=== PATIENT | female | born 1975 | race Caucasian/White ===

== ENCOUNTER 2016-06-22 18:28 | Emergency (ER) | payer MEDICARE ==
[2016-02-22 08:09] VITALS: BMI 46.1
[~2016-06-22 18:28] MED LIST: GLUCOPHAGE500 MG PO; HUMALOG 30100 UNITS/ SC; JANUVIA100 MG PO; KEFLEX500 MG PO; LEVEMIR100 U/M1 SC; NEURONTIN 300300 MG PO; NEURONTIN600 MG PO; PLAVIX75 MG PO; PROZAC40 MG PO
== END 2016-06-22 18:50 | disposition left against medical advice (07) ==
LOC: D.ER 18:28
DX: M79.604 Pain in right leg (principal); M54.9 Dorsalgia, unspecified; E11.9 Type 2 diabetes mellitus without complications; Z79.4 Long term (current) use of insulin

== ENCOUNTER 2016-06-23 20:31 | Emergency (ER) | payer MEDICARE ==
[2016-02-22 08:09] VITALS: BMI 46.1
== END 2016-06-24 01:10 | disposition home or self-care (01) ==
LOC: D.ER 20:31
DX: S16.1XXA Strain of muscle, fascia and tendon at neck level, initial encounter (principal); V43.52XA Car driver injured in collision with other type car in traffic accident, initial encounter; Y93.89 Activity, other specified; Y92.410 Unspecified street and highway as the place of occurrence of the external cause; F17.200 Nicotine dependence, unspecified, uncomplicated; E11.9 Type 2 diabetes mellitus without complications; Z79.4 Long term (current) use of insulin

== ENCOUNTER 2016-07-04 18:34 | Emergency (ER) | payer MEDICARE ==
[2016-02-22 08:09] VITALS: BMI 46.1
[2016-07-04 21:08] LABS: BASOPHILS 0.1 % (0.0-2.0); EOSINOPHILS 0.6 % (0-7); HEMATOCRIT 37.6 % (36.0-48.0); HEMOGLOBIN 12.1 g/dL (12-16); IMMATURE GRANULOCYTES 0.6 % (0-5); LYMPHOCYTES 10.9 % (15-50); MCH 27.1 pg (26.0-34.0); MCHC 32.2 g/dL (31.0-37.0); MCV 84.3 fL (80.0-100.0); MEAN PLATELET VOLUME 10.1 fL (7.4-10.4); MONOCYTES 8.8 % (2-11); RBC 4.46 10x6/uL (4.00-5.40); RDW 13.6 % (11.5-14.5); WBC 14.2 10x3/uL (4.8-10.8)
[2016-07-04 21:10] LABS: CALC OSMOLALITY 282 mosm/kg (275-300); CALCIUM 8.7 mg/dL (8.5-10.1); CARBON DIOXIDE 22.8 mmol/L (21.0-32.0); CHLORIDE - SERUM 99 mmol/L (98-107); CREATININE - SERUM 0.6 mg/dL (0.6-1.3); GLUCOSE 262 mg/dL (74-106); PLATELET COUNT 356 10x3/uL (130-400); POTASSIUM - SERUM 3.8 mmol/L (3.5-5.1); SODIUM 138 mmol/L (136-145); UREA NITROGEN 6 mg/dL (7-18); eGFR NON AFRICAN AMERICAN > 90 mL/min (90-120)
[2016-07-04 21:19] LABS: APTT 33.4 SECONDS (22.8-39.4); INR 1.35 (0.85-1.17); PROTIME 16.5 SECONDS (11.6-15.0)
== END 2016-07-04 22:07 | disposition home or self-care (01) ==
LOC: D.ER 18:34
PROVIDERS: Nurse Practitioner Acute Care
DX: L03.116 Cellulitis of left lower limb (principal); M79.605 Pain in left leg; E11.9 Type 2 diabetes mellitus without complications; Z79.4 Long term (current) use of insulin

== ENCOUNTER 2016-08-25 23:05 | Emergency (ER) | payer MEDICARE ==
[2016-02-22 08:09] VITALS: BMI 46.1
== END 2016-08-26 03:25 | disposition left against medical advice (07) ==
LOC: D.ER 23:05
DX: M79.602 Pain in left arm (principal); E11.9 Type 2 diabetes mellitus without complications; Z79.4 Long term (current) use of insulin

== ENCOUNTER 2016-10-04 22:03 | Emergency (ER) | payer MEDICARE | END 2016-10-05 00:53 | disposition home or self-care (01) | LOC: D.ER 22:03 | DX: M25.512 Pain in left shoulder (principal); M75.92 Shoulder lesion, unspecified, left shoulder; E11.9 Type 2 diabetes mellitus without complications; Z79.4 Long term (current) use of insulin ==

== ENCOUNTER 2016-10-17 22:01 | Emergency (ER) | payer MEDICARE ==
[2016-02-22 08:09] VITALS: BMI 46.1
== END 2016-10-17 22:18 | disposition left against medical advice (07) ==
LOC: D.ER 22:01
DX: Z02.9 Encounter for administrative examinations, unspecified (principal)

== ENCOUNTER 2016-12-05 18:45 | Emergency (ER) | payer MEDICARE ==
[2016-02-22 08:09] VITALS: BMI 46.1
== END 2016-12-05 20:44 | disposition home or self-care (01) ==
LOC: D.ER 18:45
DX: M25.512 Pain in left shoulder (principal); E11.9 Type 2 diabetes mellitus without complications; Z79.4 Long term (current) use of insulin

== ENCOUNTER 2016-12-21 18:49 | Emergency (ER) | payer MEDICARE ==
[2016-02-22 08:09] VITALS: BMI 46.1
== END 2016-12-21 21:26 | disposition home or self-care (01) ==
LOC: D.ER 18:49
DX: M25.512 Pain in left shoulder (principal); M25.412 Effusion, left shoulder; Z76.0 Encounter for issue of repeat prescription; E11.9 Type 2 diabetes mellitus without complications; Z79.4 Long term (current) use of insulin; F17.200 Nicotine dependence, unspecified, uncomplicated

== ENCOUNTER 2017-01-16 21:08 | Emergency (ER) | payer MEDICARE ==
[2016-02-22 08:09] VITALS: BMI 46.1
== END 2017-01-16 22:40 | disposition home or self-care (01) ==
LOC: D.ER 21:08
DX: M25.512 Pain in left shoulder (principal); E11.9 Type 2 diabetes mellitus without complications; F17.200 Nicotine dependence, unspecified, uncomplicated; Z79.4 Long term (current) use of insulin

== ENCOUNTER 2017-01-24 19:49 | Emergency (ER) | payer MEDICARE ==
[2016-02-22 08:09] VITALS: BMI 46.1
== END 2017-01-24 20:40 | disposition home or self-care (01) ==
LOC: D.ER 19:49
DX: S93.402A Sprain of unspecified ligament of left ankle, initial encounter (principal); X58.XXXA Exposure to other specified factors, initial encounter; Y93.89 Activity, other specified; Y92.89 Other specified places as the place of occurrence of the external cause; E11.9 Type 2 diabetes mellitus without complications; Z79.4 Long term (current) use of insulin; R53.1 Weakness

== ENCOUNTER → 2017-01-25 12:58 | Outpatient (CLI) | payer MEDICARE ==
[2016-02-22 08:09] VITALS: BMI 46.1
== END | disposition home or self-care (01) ==
LOC: D.MRI 01-21 15:30
DX: M75.42 Impingement syndrome of left shoulder (principal)

== ENCOUNTER 2017-01-26 23:56 | Emergency (ER) | payer MEDICARE ==
[2016-02-22 08:09] VITALS: BMI 46.1
== END 2017-01-27 00:44 | disposition home or self-care (01) ==
LOC: D.ER 23:56
DX: M25.512 Pain in left shoulder (principal); E11.9 Type 2 diabetes mellitus without complications; Z79.4 Long term (current) use of insulin; F17.200 Nicotine dependence, unspecified, uncomplicated

== ENCOUNTER 2017-02-04 21:24 | Emergency (ER) | payer MEDICARE ==
[2016-02-22 08:09] VITALS: BMI 46.1
== END 2017-02-04 22:50 | disposition home or self-care (01) ==
LOC: D.ER 21:24
DX: S29.012A Strain of muscle and tendon of back wall of thorax, initial encounter (principal); V49.9XXA Car occupant (driver) (passenger) injured in unspecified traffic accident, initial encounter; Y93.89 Activity, other specified; Y92.410 Unspecified street and highway as the place of occurrence of the external cause; F17.200 Nicotine dependence, unspecified, uncomplicated; E11.9 Type 2 diabetes mellitus without complications; Z79.4 Long term (current) use of insulin

== ENCOUNTER 2017-02-16 22:31 | Emergency (ER) | payer MEDICARE ==
[2016-02-22 08:09] VITALS: BMI 46.1
== END 2017-02-16 23:42 | disposition home or self-care (01) ==
LOC: D.ER 22:31
DX: S40.012A Contusion of left shoulder, initial encounter (principal); W19.XXXA Unspecified fall, initial encounter; Y93.01 Activity, walking, marching and hiking; Y92.018 Other place in single-family (private) house as the place of occurrence of the external cause; F17.200 Nicotine dependence, unspecified, uncomplicated

== ENCOUNTER 2017-04-29 20:16 | Emergency (ER) | payer MEDICARE ==
[2016-02-22 08:09] VITALS: BMI 46.1
== END 2017-04-29 21:26 | disposition home or self-care (01) ==
LOC: D.ER 20:16
DX: M54.5 Low back pain (principal)

== ENCOUNTER 2018-02-26 23:12 | Emergency (ER) | payer MEDICARE ==
[~2018-02-26] VITALS: Ht 160 cm; Wt 118.2 kg
[2018-02-26 23:15] VITALS: Ht 160 cm; Wt 118.2 kg
[2018-02-27] MEDS ORDERED: ANTIVERT12.5 MG PO (02:27)
[2018-02-27 02:39] VITALS: BP 136/75
== END 2018-02-27 02:39 | disposition home or self-care (01) ==
LOC: D.ER 23:12
DX: H81.10 Benign paroxysmal vertigo, unspecified ear (principal); R51 Headache; E11.9 Type 2 diabetes mellitus without complications; F17.200 Nicotine dependence, unspecified, uncomplicated

== ENCOUNTER 2018-03-18 19:18 | Emergency (ER) | payer MEDICARE ==
[~2018-03-18] VITALS: Ht 160 cm; Wt 116.8 kg
[~2018-03-18 19:18] MED LIST changes: +ANTIVERT12.5 MG PO
[2018-03-18 19:29] VITALS: BP 159/86; Ht 160 cm; Wt 116.8 kg
== END 2018-03-18 21:13 | disposition left against medical advice (07) ==
LOC: D.ER 19:18
DX: M79.604 Pain in right leg (principal)

== ENCOUNTER 2018-05-24 13:35 | Emergency (ER) | payer MEDICARE ==
[~2018-05-24] VITALS: Ht 160 cm; Wt 115.5 kg
[2018-05-24 13:43] VITALS: Ht 160 cm; Wt 115.5 kg
[2018-05-24 14:58] LABS: BASOPHILS 0.2 % (0-2); HEMATOCRIT 43.5 % (36.0-48.0); HEMOGLOBIN 14.8 g/dL (12-16); IMMATURE GRANULOCYTES 0.3 % (0-5); LYMPHOCYTES 20.2 % (15-50); MCH 28.6 pg (26.0-34.0); MCV 84.1 fL (80.0-100.0); MEAN PLATELET VOLUME 10.3 fL (7.4-10.4); MONOCYTES 6.2 % (2-11); NEUTROPHILS 72.1 % (40-80); RBC 5.17 10x6/uL (4.00-5.40); WBC 11.4 10x3/uL (4.8-10.8)
[2018-05-24 15:10] LABS: PLATELET COUNT 284 10x3/uL (130-400)
[2018-05-24 15:14] LABS: ALKALINE PHOSPHATASE 88 U/L (46-116); ALT (SGPT) 8 U/L (10-68); BILIRUBIN - TOTAL 0.24 mg/dL (0.2-1.3); CALC OSMOLALITY 289 mosm/kg (275-300); CALCIUM 9.3 mg/dL (8.5-10.1); CHLORIDE - SERUM 97 mmol/L (98-107); CREATININE - SERUM 0.8 mg/dL (0.6-1.3); POTASSIUM - SERUM 4.5 mmol/L (3.5-5.1); SODIUM 134 mmol/L (136-145); UREA NITROGEN 15 mg/dL (7-18); eGFR NON AFRICAN AMERICAN 84 mL/min (90-120)
[2018-05-24 15:16] LABS: GLUCOSE 469 mg/dL (74-106)
[2018-05-24] MEDS ORDERED: NAPROSYN500 MG PO (17:03)
[2018-05-24 18:21] VITALS: BP 153/76
== END 2018-05-24 18:21 | disposition home or self-care (01) ==
LOC: D.ER 13:35
PROVIDERS: Family Medicine
DX: M79.662 Pain in left lower leg (principal); E11.65 Type 2 diabetes mellitus with hyperglycemia; Z91.19 Patient's noncompliance with other medical treatment and regimen; E66.01 Morbid (severe) obesity due to excess calories; F17.200 Nicotine dependence, unspecified, uncomplicated

== ENCOUNTER 2018-06-23 18:01 | Emergency (ER) | payer MEDICARE ==
[~2018-06-23] VITALS: Ht 160 cm; Wt 113.6 kg
[~2018-06-23 18:01] MED LIST changes: +NAPROSYN500 MG PO
[2018-06-23 18:18] VITALS: Ht 160 cm; Wt 113.6 kg
[2018-06-23] MEDS ORDERED: LEVOFLOXACIN500 MG PO (20:16)
[2018-06-23] MEDS ORDERED: VENTOLIN HFA18 GM INH (20:16)
[2018-06-23 20:22] VITALS: BP 155/78
== END 2018-06-23 20:22 | disposition home or self-care (01) ==
LOC: D.ER 18:01
DX: R05 Cough (principal); J18.9 Pneumonia, unspecified organism; E11.9 Type 2 diabetes mellitus without complications

== ENCOUNTER 2018-07-16 15:51 | Inpatient (IN) | payer MEDICARE ==
[~2018-07-16] VITALS: Ht 160 cm; Wt 117.9 kg
[~2018-07-16 15:51] MED LIST changes: +LEVOFLOXACIN500 MG PO; +VENTOLIN HFA18 GM INH
[2018-07-16] MEDS ORDERED: LIPITOR40 MG PO (16:29)
[2018-07-16] MEDS ORDERED: ASPIRIN EC81 M1 PO (16:30)
[2018-07-16] MEDS ORDERED: ELIQUIS5 MG PO (16:31)
[2018-07-16] MEDS ORDERED: NYSTATIN1 PWD TOPICAL (16:31)
--- NOTE | 2018-07-16 16:40 | NUR ---
PT RECIEVED FROM HOME. FOOT SWOLLEN AND RED. SORE TO BACK OF HEEL. NO SIGNS OF DISTRESS. DENIES ANY OTHER NEED AT THIS TIME. CALL LIGHT IN REACH. BED LOW POSITION. NO FAMILY AT BEDSIDE AT THIS TIME.
[2018-07-16 17:36] LABS: BASOPHILS 0.3 % (0-2); EOSINOPHILS 1.6 % (0-7); HEMATOCRIT 36.4 % (36.0-48.0); HEMOGLOBIN 11.9 g/dL (12-16); IMMATURE GRANULOCYTES 0.4 % (0-5); LYMPHOCYTES 17.1 % (15-50); MCH 28.2 pg (26.0-34.0); MCHC 32.7 g/dL (31.0-37.0); MCV 86.3 fL (80.0-100.0); MONOCYTES 6.1 % (2-11); NEUTROPHILS 74.5 % (40-80); PLATELET COUNT 332 10x3/uL (130-400); RBC 4.22 10x6/uL (4.00-5.40); RDW 14.3 % (11.5-14.5); WBC 9.4 10x3/uL (4.8-10.8)
[2018-07-16 17:46] LABS: CALC OSMOLALITY 283 mosm/kg (275-300); CALCIUM 8.5 mg/dL (8.5-10.1); CARBON DIOXIDE 24.3 mmol/L (21.0-32.0); CHLORIDE - SERUM 100 mmol/L (98-107); CREATININE - SERUM 0.6 mg/dL (0.6-1.3); POTASSIUM - SERUM 4.1 mmol/L (3.5-5.1); SODIUM 136 mmol/L (136-145); UREA NITROGEN 13 mg/dL (7-18); eGFR NON AFRICAN AMERICAN > 90 mL/min (90-120)
[2018-07-16 17:50] LABS: GLUCOSE 309 mg/dL (74-106)
[2018-07-16 18:44] VITALS: BP 144/75; BMI 46.1
--- NOTE | 2018-07-16 18:51 | NUR ---
ATTEMPTED TO DO MRI LEFT FOOT W/WO. PT UNABLE TO HOLD FOOT STILL AND IN TOO MUCH PAIN TO CONTINUE. PT WANTS TO TRY AGAIN TOMORROW. INFORMED PTS NURSE UPON RETURN TO THE FLOOR.
[2018-07-16 21:20] VITALS: BP 128/65
--- NOTE | 2018-07-17 02:50 | NUR ---
REC'D. HERE.DRSG. [place].OBTAINED CULTURE FROM WOUND LEFT FOOT SENT TO LAB.LGE AMT. REDNESS AND SWELLING UP ON PILLOW.C/O SOME NUMBNESSWIGGLES TOES AND DORSIFLEXES WELL UP ON PILLOW. MENDY.WELL..ENTIRE RM. FILLED WITH FOUL SMELLING ODOR WILL CONTINUE TO MONITOR FOR ANY CHGES AND FOLLOW CURRENT PLAN OF CARE
--- NOTE | 2018-07-17 03:38 | NUR ---
RESTING IN BED NO APPARENT DISTRESS CALL LIGHT IN REACH
[2018-07-17 05:45] VITALS: BP 154/70
--- NOTE | 2018-07-17 08:12 | NUR ---
PATIENT IN BED WITH EYES CLOSED RESTING QUIETLY. NO COMPLAINTS OR SIGNS OF DISTRESS. IV INTACT. CALL LIGHT WITHIN REACH.
--- NOTE | 2018-07-17 09:18 | NUR ---
PT REQUESTED PAIN MEDICATION STATED HER PAIN IS UNBEARABLE, PT STATED PAIN IS OVEDR A 03/19, ADVISED PT THAT HER PAIN MEDICATTION IS SCHEDULEDN Q6 AND I WILL TALK TO DR IN REGARDS TO PAIN MEDICATION. [facility] NO OTHER NEEDS VOICED
--- NOTE | 2018-07-17 10:29 | NUR ---
STARTED PT DISTRIBUTION CENTER ASSOCIATE, ADMINISTERED MEDS PER MAR, NO OTHER NEEDS PER PT. CONTINUE WITH PLAN OF CARE
[2018-07-17 12:45] VITALS: BP 117/55
[2018-07-17 12:54] VITALS: BP 128/54
[2018-07-17 13:14] LABS: BASOPHILS 0.2 % (0-2); EOSINOPHILS 1.7 % (0-7); HEMATOCRIT 35.5 % (36.0-48.0); HEMOGLOBIN 11.5 g/dL (12-16); IMMATURE GRANULOCYTES 0.4 % (0-5); LYMPHOCYTES 20.3 % (15-50); MCHC 32.4 g/dL (31.0-37.0); MCV 86.6 fL (80.0-100.0); MEAN PLATELET VOLUME 9.7 fL (7.4-10.4); MONOCYTES 5.1 % (2-11); NEUTROPHILS 72.3 % (40-80); PLATELET COUNT 329 10x3/uL (130-400); RDW 14.1 % (11.5-14.5); WBC 8.4 10x3/uL (4.8-10.8)
[2018-07-17 13:38] VITALS: Ht 160 cm; Wt 117.9 kg
[2018-07-17 13:45] LABS: ALBUMIN 2.6 g/dL (3.4-5.0); ALKALINE PHOSPHATASE 76 U/L (46-116); ALT (SGPT) 18 U/L (10-68); BILIRUBIN - TOTAL 0.32 mg/dL (0.2-1.3); CALCIUM 8.5 mg/dL (8.5-10.1); CARBON DIOXIDE 22.9 mmol/L (21.0-32.0); CHLORIDE - SERUM 102 mmol/L (98-107); CREATININE - SERUM 0.7 mg/dL (0.6-1.3); POTASSIUM - SERUM 3.6 mmol/L (3.5-5.1); PROTEIN - SERUM 6.5 g/dL (6.4-8.2); SODIUM 138 mmol/L (136-145); eGFR NON AFRICAN AMERICAN > 90 mL/min (90-120)
[2018-07-17 13:47] LABS: CALC OSMOLALITY 276 mosm/kg (275-300); GLUCOSE 140 mg/dL (74-106); UREA NITROGEN 9 mg/dL (7-18)
[2018-07-17 16:57] VITALS: BP 135/71
[2018-07-17 20:25] VITALS: BP 143/71
--- NOTE | 2018-07-17 20:26 | NUR ---
PATENT ALERT AND ORENTED ABLE TO VOICE NEEDS AND WANTS TO STAFF NO NEEDS AT THIS TIME NO S/S OF DISTRESS
[2018-07-17 21:57] VITALS: BP 143/71
[2018-07-18 00:14] VITALS: BP 140/80
[2018-07-18 04:19] VITALS: BP 158/63
--- NOTE | 2018-07-18 07:54 | NUR ---
PT LAYING IN BED THIS AM, RESTING WITH EYES CLOSED. AWOKEN EASILY TO VERBAL STIMULI. IV INFUSING TO RIGHT HAND, MORPHINE BRAZING MACHINE OPERATOR AUTOMATIC NOTED. PT VOICES THAT PAIN IS CONTROLLED VIA BRAZING MACHINE OPERATOR AUTOMATIC PUMP. RESPIRATIONS EVEN AND UNLABORED, NO S/S OF DISTRESS NOTED. DRESSING TO LEFT HEEL NOTED, CDI. DENIES NEEDS AT THIS TIME. WILL CONTINUE TO MONITOR. BED LOW AND LOCKED, SR UP X2, CL IN EASY REACH.
[2018-07-18 08:45] VITALS: BP 145/74
--- NOTE | 2018-07-18 10:26 | NUR ---
MICRO SHOWS STREP B FOR CULTURE ON FOOT. PT PLACED IN CONTACT ISOLATION.
[2018-07-18] MEDS ORDERED: AUGMENTIN 875-11 TAB PO (11:28)
[2018-07-18] MEDS ORDERED: HYDROCODON-ACE1 EAC7 PO (11:31)
--- NOTE | 2018-07-18 11:40 | MORECARE ---
CASE MANAGEMENT DISCHARGE SUMMARY PATIENT: DEEPTHI HARDY UNIT: [id number] ADM DATE: 07/16/18 AGE: 42 : 77 SEX: F ROOM/BED: D.2239 AUTHOR: JENNIFER LARSEN PHYSICIAN: REFERRING PHYSICIAN: PATIENCE BHATIA DPM DATE OF SERVICE: 07/18/18 Discharge Plan Patient Name: DEEPTHI HARDY [facility] [facility] 1975 Planned Disposition: Home Anticipated Discharge Date: 07/18/18 Discharge Date: Expected LOS: 2 Initial Reviewer: [email or web address] Initial Review Date: 07/18/2018 Generated: 07/18/18 12:39 pm DCPIA - Discharge Planning Initial Assessment Updated by [email or web address]: Monica Cassidy on 07/18/18 11:36 am * Is the patient Alert and Oriented? Yes * How many steps to enter\exit or inside your home? 7/0 * PCP Dr. Pa Clark in [place] * [facility]acy [facility] * Preadmission Environment Home with Family * ADLs Independent * Equipment None * List name and contact numbers for known caregivers / representatives who currently or will assist patient after discharge: Kiah Hardy - [facility] - [phone] * Verbal permission to speak to the caregivers and representatives has been obtained from the patient. Yes * Community resources currently utilized None * Additional services required to return to the preadmission environment? No * Can the patient safely return to the preadmission environment? Yes * Has this patient been hospitalized within the prior 30 days at any hospital? Yes Patient Name: DEEPTHI HARDY Page 79097 at 1140 All edits/amendments must be made on the electronic document DICTATION DATE: 07/18/18 1139 FOLLOW UP SPECIALIST: ANTHONY 07/18/18 1139 RPT#: [id number] DC DATE: STATUS: ADM IN [facility] [address] [place] [address] END OF REPORT
--- NOTE | 2018-07-18 11:49 | MORECARE ---
CASE MANAGEMENT DISCHARGE SUMMARY PATIENT: DEEPTHI HARDY UNIT: [id number] ADM DATE: 07/16/18 AGE: 42 : 77 SEX: F ROOM/BED: D.2239 AUTHOR: SUZIE,DOC PHYSICIAN: REFERRING PHYSICIAN: PATIENCE BHATIA DPM DATE OF SERVICE: 07/18/18 Discharge Plan Patient Name: DEEPTHI HARDY Facility: [facility]:[place] : 1975 Planned Disposition: Home Anticipated Discharge Date: 07/18/18 Discharge Date: Expected LOS: 2 Initial Reviewer: [email or web address] Initial Review Date: 07/18/2018 Generated: 07/18/18 12:48 pm Comments DCP- Discharge Planning Updated by [email or web address]: Monica Cassidy on 07/18/18 10:[address] Patient Name: DEEPTHI HARDY Admission Status: Urgent Accout number: [id number] Admission Date: 07-16-2018 : 1975 Admission Diagnosis: Attending: PATIENCE BHATIA Current LOS: 2 Anticipated DC Date: 07-18-2018 Planned Disposition: Home Primary Insurance: MEDICARE A & B Discharge Planning Comments: CM met with patient to discuss discharge planning, she is alone in the room. She states she lives with her mom, step-dad, brother (he will take her home today after work), her 3 year old and her brothers 3 year old are in the home. She states she is completely independent with her care. States she has not been driving because of her heel, but her step father has been driving her where she needs to go. Declines need for DME or home health. No needs identified. CM will continue to follow and assist with discharge planning/needs. To discharge home today. Patent Leather Sorter: Monica Cassidy DCPIA - Discharge Planning Initial Assessment Updated by [email or web address]: Monica Cassidy on 07/18/18 11:36 am * Is the patient Alert and Oriented? Yes * How many steps to enter\exit or inside your home? 7/0 * PCP Dr. Pa Clark in [place] * [facility] * Preadmission Environment Home with Family * ADLs Independent * Equipment None * List name and contact numbers for known caregivers / representatives who currently or will assist patient after discharge: Kiah Hardy - [facility] - [phone] * Verbal permission to speak to the caregivers and representatives has been obtained from the patient. Yes * Community resources currently utilized None * Additional services required to return to the preadmission environment? No * Can the patient safely return to the preadmission environment? Yes * Has this patient been hospitalized within the prior 30 days at any hospital? Yes Last DP export: 07/18/18 10:39 am Patient Name: DEEPTHI HARDY Page 32858 at 1149 All edits/amendments must be made on the electronic document DICTATION DATE: 07/18/18 1148 WEIGHT COUNT OPERATOR: ANTHONY 07/18/18 1148 RPT#: [id number] DC DATE: STATUS: ADM IN [facility] [address] [place] [address] END OF REPORT
[2018-07-18 12:45] VITALS: BP 143/76
--- NOTE | 2018-07-18 13:25 | NUR ---
PT TO DISCHARGE LATER THIS PM AT ABOUT 1730 WHEN HER RIDE IS SUPPOSED TO BE HERE. DENIES NEEDS AT THIS TIME. CL IN EASY REACH.
--- NOTE | 2018-07-18 16:16 | NUR ---
PT DISCHARGE INFORMATION GONE OVER WITH PT AND FAMILY. ALLOWED TIME FOR QUESTIONS, QUESTIONS ANSWERED. PT EDUCATION PROVIDED UPON DISCHARGE. VERBALIZED UNDERSTANDING AND SIGNED. IV REMOVED FROM RIGHT HAND, TIP INTACT. DENIES FURTHER NEEDS. PT DISCHARGED AT 1616.
--- NOTE | 2018-07-22 07:54 | MORECARE ---
CASE MANAGEMENT DISCHARGE SUMMARY PATIENT: DEEPTHI HARDY UNIT: [id number] ADM DATE: 07/16/18 AGE: 42 : [birth year] SEX: F ROOM/BED: D.2239 AUTHOR: SUZIE,DOC PHYSICIAN: REFERRING PHYSICIAN: PATIENCE BHATIA DPM DATE OF SERVICE: 07/22/18 Discharge Plan Patient Name: DEEPTHI HARDY Facility: [facility]:[place] : 1975 Planned Disposition: Home Anticipated Discharge Date: 07/18/18 Discharge Date: 07/18/2018 Expected LOS: 2 Initial Reviewer: [email or web address] Initial Review Date: 07/18/2018 Generated: 07/22/18 8:54 am Comments DCP- Discharge Planning Updated by [email or web address]: Monica Cassidy on 07/18/18 10:[address] Patient Name: DEEPTHI HARDY Admission Status: Urgent Accout number: [id number] Admission Date: 07-16-2018 : 1975 Admission Diagnosis: Attending: PATIENCE BHATIA Current LOS: 2 Anticipated DC Date: 07-18-2018 Planned Disposition: Home Primary Insurance: MEDICARE A & B Discharge Planning Comments: CM met with patient to discuss discharge planning, she is alone in the room. She states she lives with her mom, step-dad, brother (he will take her home today after work), her 3 year old and her brothers 3 year old are in the home. She states she is completely independent with her care. States she has not been driving because of her heel, but her step father has been driving her where she needs to go. Declines need for DME or home health. No needs identified. CM will continue to follow and assist with discharge planning/needs. To discharge home today. Pattern Maker Programer: Monica Cassidy DCPIA - Discharge Planning Initial Assessment Updated by [email or web address]: Monica Cassidy on 07/18/18 11:36 am * Is the patient Alert and Oriented? Yes * How many steps to enter\exit or inside your home? 7/0 * PCP Dr. Pa Clark in [place] * [facility] * Preadmission Environment Home with Family * ADLs Independent * Equipment None * List name and contact numbers for known caregivers / representatives who currently or will assist patient after discharge: Kiah Hardy - [facility] - [phone] * Verbal permission to speak to the caregivers and representatives has been obtained from the patient. Yes * Community resources currently utilized None * Additional services required to return to the preadmission environment? No * Can the patient safely return to the preadmission environment? Yes * Has this patient been hospitalized within the prior 30 days at any hospital? Yes Last DP export: 07/18/18 10:48 am Patient Name: DEEPTHI HARDY Page 10922 at 0754 All edits/amendments must be made on the electronic document DICTATION DATE: 07/22/18752 TOY ELECTRIC TRAIN REPAIRER: ANTHONY 07/22/18752 RPT#: [id number] DC DATE:07/18/18 STATUS: DIS IN [facility] [address] [place] [address] END OF REPORT
== END 2018-07-18 16:16 | disposition home or self-care (01) | DRG 300 ==
LOC: D.MS 15:51
PROVIDERS: Family Medicine; ADMIT Podiatrist Foot & Ankle Surgery
DX: E11.52 Type 2 diabetes mellitus with diabetic peripheral angiopathy with gangrene (principal); I96 Gangrene, not elsewhere classified; L03.116 Cellulitis of left lower limb; Z68.42 Body mass index [BMI] 45.0-49.9, adult; B95.4 Other streptococcus as the cause of diseases classified elsewhere; E66.01 Morbid (severe) obesity due to excess calories; E11.65 Type 2 diabetes mellitus with hyperglycemia; F32.9 Major depressive disorder, single episode, unspecified; F41.9 Anxiety disorder, unspecified; Z87.891 Personal history of nicotine dependence

== ENCOUNTER → 2018-08-01 10:39 | Outpatient (CLI) | payer MEDICARE ==
[2018-07-17 13:38] VITALS: BMI 46.0
[~2018-08-01 10:39] MED LIST changes: +ASPIRIN EC81 M1 PO; +AUGMENTIN 875-11 TAB PO; +ELIQUIS5 MG PO; +HYDROCODON-ACE1 EAC7 PO; +LIPITOR40 MG PO; +NYSTATIN1 PWD TOPICAL
== END | disposition home or self-care (01) ==
LOC: D.US 07-31 15:00
DX: M79.604 Pain in right leg (principal); R22.41 Localized swelling, mass and lump, right lower limb

== ENCOUNTER 2018-10-06 18:25 | Emergency (ER) | payer MEDICARE ==
[~2018-10-06] VITALS: Ht 160 cm; Wt 110.5 kg
[2018-10-06 18:29] VITALS: Ht 160 cm; Wt 110.5 kg
[2018-10-06 20:23] LABS: BASOPHILS 0.2 % (0-2); EOSINOPHILS 0.8 % (0-7); HEMATOCRIT 42.5 % (36.0-48.0); HEMOGLOBIN 14.4 g/dL (12-16); IMMATURE GRANULOCYTES 0.3 % (0-5); LYMPHOCYTES 19.9 % (15-50); MCHC 33.9 g/dL (31.0-37.0); MCV 82.5 fL (80.0-100.0); MEAN PLATELET VOLUME 10.6 fL (7.4-10.4); MONOCYTES 6.8 % (2-11); RBC 5.15 10x6/uL (4.00-5.40); RDW 13.5 % (11.5-14.5); WBC 10.2 10x3/uL (4.8-10.8)
[2018-10-06 20:30] LABS: PLATELET COUNT 252 10x3/uL (130-400)
[2018-10-06] MEDS ORDERED: TYLENOL W/CODEI1 TAB PO (20:49)
[2018-10-06] MEDS ORDERED: VIBRAMYCIN 100100 MG PO (20:49)
[2018-10-06 20:51] LABS: ALBUMIN 2.8 g/dL (3.4-5.0); ALKALINE PHOSPHATASE 86 U/L (46-116); ALT (SGPT) 16 U/L (10-68); BILIRUBIN - TOTAL 0.31 mg/dL (0.2-1.3); CALC OSMOLALITY 286 mosm/kg (275-300); CALCIUM 8.8 mg/dL (8.5-10.1); CARBON DIOXIDE 23.8 mmol/L (21.0-32.0); CHLORIDE - SERUM 99 mmol/L (98-107); CREATININE - SERUM 0.8 mg/dL (0.6-1.3); POTASSIUM - SERUM 4.4 mmol/L (3.5-5.1); PROTEIN - SERUM 7.3 g/dL (6.4-8.2); SODIUM 134 mmol/L (136-145); UREA NITROGEN 15 mg/dL (7-18); eGFR NON AFRICAN AMERICAN 83 mL/min (90-120)
[2018-10-06] MEDS ORDERED: DIFLUCAN100 MG PO (20:53)
[2018-10-06 20:54] LABS: GLUCOSE 431 mg/dL (74-106)
[2018-10-06 22:04] VITALS: BP 125/74
== END 2018-10-06 21:55 | disposition home or self-care (01) ==
LOC: D.ER 18:25
PROVIDERS: Family Medicine
DX: L08.89 Other specified local infections of the skin and subcutaneous tissue (principal); E11.69 Type 2 diabetes mellitus with other specified complication

== ENCOUNTER → 2018-10-29 18:22 | Outpatient (CLI) | payer MEDICARE ==
[2018-10-06 18:29] VITALS: BMI 43.1
[~2018-10-29 18:22] MED LIST changes: +DIFLUCAN100 MG PO; +TYLENOL W/CODEI1 TAB PO; +VIBRAMYCIN 100100 MG PO
== END | disposition home or self-care (01) ==
LOC: D.LABREF 18:22
PROVIDERS: ATTEND Podiatrist Foot & Ankle Surgery
DX: L03.116 Cellulitis of left lower limb (principal)

== ENCOUNTER 2018-11-29 21:53 | Inpatient (IN) | payer MEDICARE ==
[~2018-11-29] VITALS: Ht 160 cm; Wt 117.7 kg
--- NOTE | ~2018-11-29 | HEMODYNAMI ---
PATIENT:DEEPTHI HARDY MEDICAL RECORD: [id number] : [birth year] LOCATION:[place] [address] ADMISSION DATE: 11/29/18 Generatedon:12/02/201815:04 Patient name: DEEPTHI HARDY Patient #: [id number] SSN: : 1975 Date of study: 12/02/2018 Page: Of Hemodynamic Procedure Report Patient Data Patient Demographics Procedure consent was obtained First Name: DEEPTHI Gender: Female Last Name: HAYLEY : 1975 Middle Initial: R Age: 43 year(s) Patient #: [id number] Race: Unknown Additional ID: [id number] Contact details Address: [address] [place] [address] State: [place] City: [place] Zip code: [address] Admission Admission Data Admission Date: 11/29/2018 Admission Time: 23:28 Room #: [facility] Procedure Procedure Types Cath Procedure Peripheral Cath Diagnostic Procedure Abd/Extremity Extremities Right Lower Ext Arterio Procedure Description Procedure Date Procedure Date: 12/02/2018 Procedure Start Time: 14:40 Procedure Staff Name Function Teddy Gore MD Performing Physician Nasra Goldberg RN Nurse SHERRELL ALBA RT Scrub Nikos Cazares RT Monitor Procedure Data Cath Procedure Fluoroscopy Diagnostic fluoroscopy Total fluoroscopy Time: 2.1 time: 2.1 min min Diagnostic fluoroscopy Total fluoroscopy dose: 105 dose: 105 mGy mGy Contrast Material Contrast Material Type Amount (ml) Isovue 300 35 Entry Location Entry Primary Successful Side Size Upsize Upsize Entry Closure Succes sful Closure Location (Fr) 1 (Fr) 2 (Fr) Remarks Device Remarks Femoral Right 5 Fr Exoseal artery Diagnostic catheters Device Type Used For End Catheter Placement DIAGNOSTIC IMT 5Fr Catheter ([id number]) Procedure Medications Medication Administration Route Dosage Heparin Flush Bag added to field 2 bags (1000units/500ml NS) Lidocaine 1% added to field 20 Versed I.V. 1 mg Fentanyl I.V. 50 mcg Versed I.V. 1 mg Fentanyl I.V. 50 mcg Hemodynamics Rest Heart Rate: 72 (bpm) Snapshots Pre Cath Intra NCS Post Cath Vital Signs Time Heart Resp SPO2 etCO2 NIBP (mmHg) Rhythm Pain Sedation Rate (ipm) (%) (mmHg) Status Level (bpm) 14:23:04 74 22 93 26.2 145/61(102) NSR 0 (11) 10(A) , No pain 14:27:18 74 36 100 30 141/79(107) NSR 0 (11) 10(A) , No pain 14:31:34 78 24 100 32.3 150/79(115) NSR 0 (11) 10(A) , No pain 14:35:52 76 60 100 32.3 148/84(120) NSR 0 (11) 10(A) , No pain 14:40:08 78 20 100 30.8 151/88(128) NSR 0 (11) 10(A) , No pain 14:44:26 81 50 100 31.5 155/81(117) NSR 0 (11) 8(A) , No pain 14:48:40 84 18 100 34.5 144/83(118) NSR 0 (11) 8(A) , No pain 14:52:54 85 36 99 35.3 155/86(125) NSR 0 (11) 8(A) , No pain 14:57:04 80 20 99 36 153/89(112) NSR 0 (11) 8(A) , No pain 15:01:20 82 14 100 34.5 167/92(130) NSR 0 (11) 8(A) , No pain Medications Time Medication Route Dose Verified Delivered Reason Notes Effec tiveness by by 14:22:57 Heparin Flush added 2 Teddy Espinal used for Bag to bags Bao Gore procedure (1000units/500ml field MD GUADALUPE NS) 14:23:14 Lidocaine 1% added 20ml Teddy Espinal used for to vial Bao Gore procedure field MD GUADALUPE 14:42:31 Versed I.V. 1 mg Teddy Hammonds for Bao Goldberg RN sedation 14:42:44 Fentanyl I.V. 50 Teddy Hammonds for mcg Bao Goldberg RN sedation 14:45:06 Versed I.V. 1 mg Teddy Hammonds for Bao Goldberg RN sedation 14:45:18 Fentanyl I.V. 50 Teddy Hammonds for [facility] Bao Goldberg RN sedation Procedure Log Time Note 14:14:26 Nikos Debora RT (R) (CV) sent for patient. Start room use. 14:14:32 Time tracking: Regular hours (M-F 7:00 - 5:00) 14:14:37 Plan of Care:Hemodynamics will remain stable., Cardiac rhythm will remain stable., Comfort level will be maintained., Respiratory function will remain adequate., Patient/ family verbilizes understanding of procedure., Procedure tolerated without complication., Recovers from procedure without complications.. 14:14:50 Patient received from [employer] to IR Alert and oriented. Tansferred to table in Prone position. 14:14:52 Correct patient and procedure confirmed by team. 14:14:55 Signed procedure consent form obtained from patient. 14:14:56 ECG and BP/O2 sat monitors applied to patient. 14:14:58 Full Disclosure recording started 14:14:59 - 14:15:03 H&P Date Dictated: 12/02/2018 Within 30 days and on chart.. 14:15:05 Pre-op teaching completed and patient verbalized understanding. 14:15:07 Pre-procedure instructions explained to patient. 14:15:09 Family in waiting room. 14:15:10 Patient NPO since Midnight. 14:15:15 Is the patient allergic to Iodine/contrast media? No. 14:15:17 Is patient on blood thinner?No 14:15:18 Patient diabetic? Yes. 14:15:20 If diabetic: On Metformin? No 14:15:21 ----Pre-sedation anethsthesia assessment.---- 14:15:22 ----Pre-sedation anethsthesia assessment.---- 14:15:28 Previous problem with sedation/anesthesia? No ? 14:15:29 Snore? Yes 14:15:32 Sleep apnea? No 14:15:34 Deviated septum? No 14:15:42 Opens mouth fully? Yes 14:15:44 Sticks out tongue? Yes 14:15:48 Airway obstruction? No ? 14:15:54 Dentures? No \ 14:15:58 Use device set IR Diagnostic 14:16:00 Sterile Angiographic Pack opened to sterile field. 14:16:01 Tegaderm 4 x 4 (1626W) opened to sterile field. 14:16:32 IV patent on arrival in left forearm with 0.9% NaCl at [facility]. 14:20:42 Pre procedure: right dorsailis pedis pulse None 14:20:45 Pre procedure: left dorsailis pedis pulse Doppler 14:20:50 Pre procedure: right posterior tibial pulse Doppler 14:20:53 Pre procedure: left posterior tibial pulse Doppler 14:20:58 Left groin area was prepped with chlora-prep and draped in sterile fashion 14:20:59 Sharps counted by scrub and verified by R.N. 14:21:00 Alarms reviewed by R. N. 14:21:22 Bag Decanter (2002S) opened to sterile field. 14:21:37 Vital chart was started 14:21:38 Baseline sample Acquired. 14:22:57 Heparin Flush Bag (1000units/500ml NS) 2 bags added to field was administered by Teddy Gore MD; used for procedure; 14:23:14 Lidocaine 1% 20ml vial added to field was administered by Teddy walters MD; used for procedure; 14:39:42 Physician arrived 14:39:48 --------ALL STOP TIME OUT------ 14:39:48 Final Timeout: patient, procedure, and site verified with staff and physician. All members of the team are in agreement. 14:39:50 Left groin site verified by team. 14:39:55 Maximum allowable Isovue 300 dose 300ml. Physician notified. (300ml for normal creatinines. For patients with creatinine of 1.7 or higher multiply weight(kg) x 5 divided by creatinine.) 14:39:59 Fire Safety Assessment: A--An alcohol-based skin anteseptic being used preoperatively., C--Open oxygen or nitrous oxide is being used. 14:40:04 Sedation plan: IV Moderate Sedation Medication:Versed, Fentanyl 14:40:17 Procedure started. 14:40:22 Local anesthetic to left femerol artery with Lidocaine 1% by Teddy Gore MD.INITIAL ACCESS ONLY 14:40:35 DOC .035 wire ([id number]) opened to sterile field. 14:40:35 SHEATH 5FR [place] (ZVT498) opened to sterile field. 14:40:36 Micropuncture VSI 4FR kit opened to sterile field. 14:40:38 A DIAGNOSTIC IMT 5Fr Catheter ([id number]) was advanced over the wire an d used for . 14:40:40 Access obtained with 4Fr micropunture. 14:40:50 A 5 Fr sheath was inserted into the Right Femoral artery 14:42:31 Versed 1 mg I.V. was administered by Nasra Goldberg RN; for sedation; 14:42:44 Fentanyl 50 mcg I.V. was administered by Nasra Goldberg RN; for sedation; 14:45:06 Versed 1 mg I.V. was administered by Nasra Goldberg RN; for sedation; 14:45:18 Fentanyl 50 mcg I.V. was administered by Nasra Goldberg RN; for sedation; 14:58:17 EXOSEAL 5Fr (EX500) opened to sterile field. 14:58:31 Sheath removed intact; hemostasis achieved with Exoseal to the Right Femoral artery. 14:58:39 Procedure ended.(Physican Out) 15:02:12 Fluoroscopy time 02.10 minutes. 15:02:16 Fluoroscopy dose: 105 mGy 15:02:16 Flurop Dose total: 105 15:02:26 Contrast amount:Isovue 300 35ml. 15:02:30 Sharps counted by scrub and verified by R.N. 15:02:31 Insertion/operative site no bleeding no hematoma. 15:02:35 Post-op/insertion site Left Femoral artery dressed using a 4 x 4 and Tegaderm. 15:02:40 Post left femerol artery:stable 15:02:42 Post Procedure Pulses reassessed and unchanged 15:02:47 Post procedure instruction explained to patient.Patient verbalizes understanding. 15:02:47 Procedure and supply charges have been captured, reviewed, submitted an d are correct. 15:03:45 Report given to [facility]. 15:03:48 Patient transfered to [facility] with Bed. 15:04:15 Vital chart was stopped Device Usage Item Name Manufacture Quantity Catalog Number Hospital Part Current Min imal Lot# / Charge Number Stock Stock Serial# Code Sterile Cardinal 1 [id number] [id number] 5 Angiographic Health Pack Tegaderm 4 x 3M 1 1626W [id number] 147304 [id number] 5 4 (1626W) Bag Decanter Microtek 1 2001S 216574 24692 013456 5 (2001S) Medical Inc. DOC .035 wire [employer] 1 [id number] 234930 900942 5 ([id number]) SHEATH 5FR Terumo 1 [id number] 229759 505596 132058 5 [place] (BBZ754) Micropuncture VSI VASCULAR 1 7266V 179974 339537 5 VSI 4FR kit SOLUTIONS DIAGNOSTIC [place] 1 [id number] 553757 801231 84064 5 [id number] IMT 5Fr Scientific Catheter ([id number]) EXOSEAL 5Fr Cardinal 1 EX500 036930 929179 [id number] 10 [id number] (EX500) Health Signature Audit [place] Stage Time Signature Unsigned Intra-Procedure 12/02/2018 Nikos 3:04:11 PM Debora RT (R) (CV) Signatures Monitor : Nikos Signature : Debora RT Date : Time : [address] [address]
[2018-11-29 22:35] LABS: BASOPHILS 0.2 % (0-2); EOSINOPHILS 1.5 % (0-7); HEMOGLOBIN 14.5 g/dL (12-16); IMMATURE GRANULOCYTES 0.2 % (0-5); LYMPHOCYTES 27.1 % (15-50); MCH 28.2 pg (26.0-34.0); MCHC 33.7 g/dL (31.0-37.0); MCV 83.5 fL (80.0-100.0); MONOCYTES 6.4 % (2-11); NEUTROPHILS 64.6 % (40-80); PLATELET COUNT 242 10x3/uL (130-400); RBC 5.15 10x6/uL (4.00-5.40); WBC 8.8 10x3/uL (4.8-10.8)
[2018-11-29 22:51] LABS: ALBUMIN 2.9 g/dL (3.4-5.0); ALKALINE PHOSPHATASE 84 U/L (46-116); ALT (SGPT) 17 U/L (10-68); BILIRUBIN - TOTAL 0.18 mg/dL (0.2-1.3); C-REACTIVE PROTEIN 0.2 mg/dL (0.0-0.9); CARBON DIOXIDE 23.8 mmol/L (21.0-32.0); CHLORIDE - SERUM 101 mmol/L (98-107); CREATINE KINASE 45 UL (21-215); CREATININE - SERUM 0.7 mg/dL (0.6-1.3); POTASSIUM - SERUM 4.7 mmol/L (3.5-5.1); PROTEIN - SERUM 6.9 g/dL (6.4-8.2); SODIUM 134 mmol/L (136-145); UREA NITROGEN 16 mg/dL (7-18); eGFR NON AFRICAN AMERICAN > 90 mL/min (90-120)
[2018-11-29 22:52] LABS: CALC OSMOLALITY 288 mosm/kg (275-300); GLUCOSE 458 mg/dL (74-106); TROPONIN-I < 0.017 ng/mL (0.000-0.060)
--- NOTE | 2018-11-29 22:58 | NUR ---
ERP STATED THAT GLUCOSE WAS 458 PER LAB.
--- NOTE | 2018-11-29 23:05 | NUR ---
US AT BEDSIDE AT THIS TIME
[2018-11-30] MEDS ORDERED: PLAVIX75 MG PO (00:36)
[2018-11-30 01:01] VITALS: BP 145/77; BMI 41.3
--- NOTE | 2018-11-30 01:21 | NUR ---
ADMIT TO ROOM 2122 @ 2355 FROM ER. ALERT/ORIENTED. ACCOMPANIED BY ONE PERSON. ABLE TO WALK INDEPENDENTLY. ADMISSION HISTORY AND ASSESSMENT COMPLETED. HOME MEDS REVIEWED AND UPDATED. PT C/O PAIN TO RIGHT LEG. ADMINISTERED. IV TORADOL 15MG. NS @ 125ML/HR INFUSING TO LEFT A/C. PT NOW RESTING. REVIEWED PLAN OF CARE WITH PATIENT.
--- NOTE | 2018-11-30 01:25 | NUR ---
ATTEMPTED TO DOPPLER PEDAL PULSE TO RIGHT FOOT WITH NO SUCCESS.
[2018-11-30 04:00] VITALS: BP 130/54
[2018-11-30 07:46] VITALS: BP 155/80
--- NOTE | 2018-11-30 08:07 | NUR ---
ASSESSMENT DONE. DENIES NEEDS
--- NOTE | 2018-11-30 10:41 | NUR ---
I have reviewed this patient and I concur with the Shift Assessment completed by the Licensed Practical Nurse today this shift.
[2018-11-30 11:46] VITALS: BP 133/73
[2018-11-30 13:58] LABS: INR 1.03 (0.85-1.17)
--- NOTE | 2018-11-30 17:38 | NUR ---
WITHOUT CHANGES OR DISTRESS NOTED AT THIS TIME. DENIES NEEDS
[2018-11-30 17:42] LABS: APPEARANCE CLEAR (CLEAR); BILIRUBIN NEGATIVE (NEGATIVE); COLOR STRAW (YELLOW); GLUCOSE 1000 mg/dL (NEGATIVE); KETONE NEGATIVE (NEGATIVE); NITRITE NEGATIVE (NEGATIVE); PROTEIN 1+ mg/dL (NEGATIVE); SPECIFIC GRAVITY 1.015 (1.005-1.020); UROBILINOGEN NORMAL (NORMAL)
[2018-11-30 17:43] LABS: RED CELLS - URINE 0-5 /hpf (0-5); WHITE CELLS - URINE 0-5 /hpf (0-5)
[2018-11-30 17:44] LABS: BACTERIA FEW /hpf (NONE SEEN); EPITHELIAL CELLS 0-5 /hpf (0-5)
--- NOTE | 2018-11-30 19:51 | NUR ---
RECEIVED REPORT, WILL ASSUME CARE OF PT, ASKING FOR ME TO CLOSE BLIND, DENIES ANY OTHER NEEDS AT THIS TIME, BED IS LOW, SRX2, CALL LIGHT IN REACH, WILL CONTINUE PLAN OF CARE
[2018-11-30 20:00] VITALS: BP 148/78
--- NOTE | 2018-11-30 22:48 | NUR ---
APTT 31.8 GAVE 3000 HEPRIN BOLUS INCREASED BY 200
[2018-12-01 00:11] VITALS: BP 148/78
[2018-12-01 00:26] LABS: HEMATOCRIT 39.1 % (36.0-48.0); HEMOGLOBIN 13.2 g/dL (12-16); MCH 28.4 pg (26.0-34.0); MCHC 33.8 g/dL (31.0-37.0); MCV 84.1 fL (80.0-100.0); MEAN PLATELET VOLUME 9.8 fL (7.4-10.4); RBC 4.65 10x6/uL (4.00-5.40); RDW 14.1 % (11.5-14.5); WBC 8.3 10x3/uL (4.8-10.8)
--- NOTE | 2018-12-01 03:28 | NUR ---
I have reviewed this patient and I concur with the Shift Assessment completed by the Licensed Practical Nurse today this shift.
[2018-12-01 04:00] VITALS: BP 147/75
[2018-12-01 05:26] LABS: BASOPHILS 0.4 % (0-2); EOSINOPHILS 1.5 % (0-7); HEMOGLOBIN 12.1 g/dL (12-16); IMMATURE GRANULOCYTES 0.4 % (0-5); LYMPHOCYTES 36.4 % (15-50); MCH 27.5 pg (26.0-34.0); MCHC 32.7 g/dL (31.0-37.0); MCV 84.1 fL (80.0-100.0); MEAN PLATELET VOLUME 10.1 fL (7.4-10.4); MONOCYTES 6.8 % (2-11); NEUTROPHILS 54.5 % (40-80); PLATELET COUNT 215 10x3/uL (130-400); RDW 14.1 % (11.5-14.5); WBC 8.1 10x3/uL (4.8-10.8)
[2018-12-01 05:37] LABS: CALCIUM 8.3 mg/dL (8.5-10.1); CARBON DIOXIDE 23.4 mmol/L (21.0-32.0); CHLORIDE - SERUM 107 mmol/L (98-107); SODIUM 139 mmol/L (136-145); UREA NITROGEN 18 mg/dL (7-18)
[2018-12-01 05:38] LABS: CALC OSMOLALITY 283 mosm/kg (275-300); CREATININE - SERUM 0.5 mg/dL (0.6-1.3); GLUCOSE 166 mg/dL (74-106); POTASSIUM - SERUM 3.8 mmol/L (3.5-5.1); eGFR NON AFRICAN AMERICAN > 90 mL/min (90-120)
--- NOTE | 2018-12-01 08:19 | NUR ---
ALERT AND ORIENTED. TELEMERTY SHOWS SR. HEPARIN DRIP AT 1200 INFUSINIG INTO LEFT FA. PT HAS A SENIOR ENVIRONMENTAL SCIENTIST PUMP WITH MORPHINE AT 1MG EVERY 10 MIN PRN. RIGHT LEG WITHOUT A PAPABLE PULSE. DENIES ANY NEED. SR UP WITH CALL LIGHT IN REACH. WILL MONITOR
[2018-12-01 09:01] VITALS: BP 130/69
[2018-12-01 11:41] VITALS: BP 111/65
[2018-12-01 12:53] LABS: % SATURATION 25 % (15-55); IRON 44 ug/dl (35-150); TOTAL IRON BIND CAPACITY 174 ug/dl (260-445); UNSAT IRON BIND CAPACITY 130 ug/dl (150-375)
[2018-12-01 13:34] VITALS: Ht 160 cm; Wt 117.7 kg
--- NOTE | 2018-12-01 15:53 | NUR ---
I have reviewed this patient and I concur with the Shift Assessment completed by the Licensed Practical Nurse today this shift.
[2018-12-01 18:48] VITALS: BP 125/75
--- NOTE | 2018-12-01 19:37 | NUR ---
ASSESSMENT COMPLETE, PT A&O. RESPERATIONS EVEN ON RA. IV TO LEFT ARM WITH NS INFUSING AT 30 CC/HR, HEPARIN AT 14 CC/HR, AND MORPHINE DRIVER/GUIDE IN USE FOR PAIN CONTROL. REMINDED PT NPO AFTER MN FOR AFRO IN AM, PT STATED UNDERSTANDING. DENIES PAIN OR NEEDS AT THIS TIME.
[2018-12-01 20:00] VITALS: BP 140/69
--- NOTE | 2018-12-01 21:50 | NUR ---
HS MEDS GIVEN WITH FRESH ICE WATER. BS 220, COVERED PER S/S. NO LONG ACTING INSULIN GIVEN AT THIS TIME DUE TO PT BEING NPO AFTER MN FOR PROCEDURE. DIET LEMON GRINDSTONE GIVEN AT PT REQUEST.
--- NOTE | 2018-12-01 22:39 | NUR ---
CALLED BACK TO ROOM TO TURN PTS LIGHTS OUT, PT SITTNG UP IN BED EATING FOOD BROUGHT FROM HOME.
[2018-12-02] VITALS (15 sets, daily range): BP systolic 113–153; BP diastolic 50–84
--- NOTE | 2018-12-02 00:33 | NUR ---
I have reviewed this patient and I concur with the Shift Assessment completed by the Licensed Practical Nurse today this shift.
[2018-12-02 00:42] LABS: HEMATOCRIT 38.5 % (36.0-48.0); HEMOGLOBIN 12.9 g/dL (12-16); MCHC 33.5 g/dL (31.0-37.0); MCV 83.7 fL (80.0-100.0); MEAN PLATELET VOLUME 10.1 fL (7.4-10.4); RBC 4.6 10x6/uL (4.00-5.40); RDW 14.1 % (11.5-14.5); WBC 8.2 10x3/uL (4.8-10.8)
--- NOTE | 2018-12-02 02:47 | NUR ---
RESTING WITH EYES CLOSED, RESPERATIONS EVEN, NO S/S DISTRESS NOTED.
[2018-12-02 05:49] LABS: BASOPHILS 0.1 % (0-2); EOSINOPHILS 1.2 % (0-7); HEMATOCRIT 35.9 % (36.0-48.0); HEMOGLOBIN 11.8 g/dL (12-16); IMMATURE GRANULOCYTES 0.3 % (0-5); LYMPHOCYTES 31.7 % (15-50); MCH 27.6 pg (26.0-34.0); MCHC 32.9 g/dL (31.0-37.0); MCV 84.1 fL (80.0-100.0); MEAN PLATELET VOLUME 10.6 fL (7.4-10.4); MONOCYTES 7.2 % (2-11); NEUTROPHILS 59.5 % (40-80); PLATELET COUNT 229 10x3/uL (130-400); RBC 4.27 10x6/uL (4.00-5.40); RDW 14.2 % (11.5-14.5); WBC 7.5 10x3/uL (4.8-10.8)
[2018-12-02 06:04] LABS: CALC OSMOLALITY 288 mosm/kg (275-300); CALCIUM 8.1 mg/dL (8.5-10.1); CARBON DIOXIDE 26.4 mmol/L (21.0-32.0); CHLORIDE - SERUM 107 mmol/L (98-107); CREATININE - SERUM 0.5 mg/dL (0.6-1.3); SODIUM 140 mmol/L (136-145); UREA NITROGEN 14 mg/dL (7-18); eGFR NON AFRICAN AMERICAN > 90 mL/min (90-120)
[2018-12-02 06:07] LABS: GLUCOSE 255 mg/dL (74-106)
[2018-12-02 06:10] LABS: INR 1.03 (0.85-1.17)
[2018-12-02 06:11] LABS: APTT 47.6 SECONDS (22.8-39.4)
--- NOTE | 2018-12-02 07:39 | NUR ---
ALERT AND ORIENTED. NPO FOR AFRO STUDY. TELEMERTY SHOWS SR 85. LEFT FA IV WITH NS AT 30 HEP AT 18 AND PAINT PREP TECHNICIAN MORPHINE AT 1/10. SR UP WITH CALL LIGHT IN REACH. WILL MONITOR
[2018-12-02 08:13] LABS: FOLATE (FOLIC ACID) - SERUM 9.6 ng/mL (>3.0)
--- NOTE | 2018-12-02 14:24 | NUR ---
TO IR PER BED FOR AFRO STUDY
--- NOTE | 2018-12-02 14:30 | NUR ---
BACK FROM AFRO. LEFT GROIN WITH DRSG DRY AND INTACT.NO BLEEDING. DENIES ANY NEEDS. TELEMERTY SHOWS SR. FAMILY AT BEDSIDE. SR UP WITH CALL LIGHT IN REACH
--- NOTE | 2018-12-02 16:17 | NUR ---
HEPARIN STARTED BACK AT 19. WILL MONITOR
--- NOTE | 2018-12-02 19:49 | NUR ---
ASSESSMENT COMPLETE, PT A&O. SITTING UP IN BED WATCHING TV. RESPERATIONS EVEN ON RA. IV TO LEFT ARM WITH HEPARIN INFUSING AT 19, NEXT PTT AT 22:00, MORPHINE CAR HOPPER IN USE FOR PAIN CONTROL AND NS AT KVO. IV SITE CLEAN AND DRY. DRSG TO LEFT GROIN FROM AFRO THAT WAS DONE EARLIER C/D/I. NO SWELLING OR BLEEDING NOTED, GROIN SOFT TO TOUCH. PT CURRENTLY DENIES PAIN OR NEEDS, BED LOW, CL IN REACH.
--- NOTE | 2018-12-02 20:27 | NUR ---
NOTIFIED BY MT THAT PT WAS OFF OF TELEMETRY, ENTERED ROOM, I NFORMED PT THAT HER HEART MONITOR NEEDED TO BED PLACED BACK ON, PT STATED THAT SHE DOESNT WANT TO WEAR IT BECAUSE NOTHING IS WRONG WITH HER HEART. MONITOR RETURNED TO MANAGER DATABASE.
--- NOTE | 2018-12-02 21:13 | NUR ---
HS MEDS GIVEN WITH FRESH ICE WATER. PT DENIES PAIN OR NEEDS.
--- NOTE | 2018-12-02 21:46 | NUR ---
NOTIFIED BY EXECUTIVE SALES ASSISTANT THAT PT HAD TURNED OFF HER IV. WENT TO ROOM AND HEPARIN DRIP WAS OFF. TURNED HEPARIN BACK ON AND TOLD PT THAT HER DRIP NEEDED TO STAY ON BECAUSE IF ITS TURNED OFF OR PAUSED THE LAB LEVELS WILL BE OFF ON THE NEXT BLOOD DRAW. PT STATED THAT HER IV WAS BEEPING SO SHE TURNED IT OFF, INFORMED TO CALL ME IF IV STARTS TO BEEP AND ILL FIX IT.
--- NOTE | 2018-12-02 22:24 | NUR ---
CIGAR BINDER AT BED SIDE TO DRAW BLOOD FOR PTT, PT TOLD CIGAR BINDER THAT SHE DIDNT WANT BLOOD TO BE DRAWN. INFORMED PT THAT WHILE SHE IS ON THE HEPARIN DRIP WE HAVE TO DRAW BLOOD EVERY 6 HOURS UNTIL A THERAPEUTIC LEVEL IS REACHED AND THAT SHE IS ON THE HEPARIN DRIP TO HELP THE BLOOD FLOW TO HER LEGS. PT ALLOWED BLOOD TO BE DRAWN THIS TIME, BUT ALSO STATED THAT SHE IS GOING TO TELL THE DOCTOR THAT SHE WANTS TO BE DISCONNECTED FROM ALL OF HER WIRES.
--- NOTE | 2018-12-03 03:28 | NUR ---
RESTING WITH EYES CLOSED, RESPERATIONS EVEN, NO S/S DISTRESS NOTED.
[2018-12-03 04:00] VITALS: BP 122/53
--- NOTE | 2018-12-03 04:32 | NUR ---
I have reviewed this patient and I concur with the Shift Assessment completed by the Licensed Practical Nurse today this shift.
--- NOTE | 2018-12-03 04:50 | NUR ---
YARN TWISTER AT BED SIDE TO OBTAIN PTS WEIGHT, PT REFUSED TO GET OUT OF BED FOR DAILY WEIGHT.
[2018-12-03 06:50] LABS: BASOPHILS 0.1 % (0-2); EOSINOPHILS 1.5 % (0-7); HEMATOCRIT 35.2 % (36.0-48.0); HEMOGLOBIN 11.9 g/dL (12-16); IMMATURE GRANULOCYTES 0.1 % (0-5); LYMPHOCYTES 28.1 % (15-50); MCH 28.5 pg (26.0-34.0); MCHC 33.8 g/dL (31.0-37.0); MCV 84.2 fL (80.0-100.0); MEAN PLATELET VOLUME 10.5 fL (7.4-10.4); MONOCYTES 6.5 % (2-11); NEUTROPHILS 63.7 % (40-80); PLATELET COUNT 224 10x3/uL (130-400); RBC 4.18 10x6/uL (4.00-5.40); RDW 14.1 % (11.5-14.5); WBC 7.3 10x3/uL (4.8-10.8)
[2018-12-03 07:18] LABS: CALC OSMOLALITY 279 mosm/kg (275-300); CALCIUM 8.6 mg/dL (8.5-10.1); CARBON DIOXIDE 25.1 mmol/L (21.0-32.0); CHLORIDE - SERUM 105 mmol/L (98-107); CREATININE - SERUM 0.5 mg/dL (0.6-1.3); GLUCOSE 222 mg/dL (74-106); SODIUM 137 mmol/L (136-145); UREA NITROGEN 9 mg/dL (7-18); eGFR NON AFRICAN AMERICAN > 90 mL/min (90-120)
--- NOTE | 2018-12-03 07:21 | NUR ---
REPORT RECEIVED. WILL CONTINUE WITH POC. PT CURRENTLY RESTING ON RIGHT SIDE. CALL LIGHT W/I REACH. RR EVEN AND UNLABORED ON RA. NS INFUSING @30ML/HR, HEPARIN INFUSING @21ML/HR, AND MORPHINE PUBLIC HEALTH PROGRAM MANAGER INFUSING VIA L.FOR PIV. NO S/S OF DISTRESS NOTED. PT DENIES ANY NEEDS. WILL CTM.
[2018-12-03 09:47] VITALS: BP 107/51
--- NOTE | 2018-12-03 13:47 | NUR ---
APTT RESULTED OF 85.4 @1345. WILL MAKE NO CHANGE TO HEPARIN PER PROTOCOL. NS INFUSING @30ML/HR. COMPOSITION BOARD PRESS OPERATOR CURRENTLY INFUSING. HEPARIN INFUSING @21ML/HR. WILL CTM.
--- NOTE | 2018-12-03 14:05 | NUR ---
I have reviewed this patient and I concur with the Shift Assessment completed by the Licensed Practical Nurse today this shift.
--- NOTE | 2018-12-03 14:15 | NUR ---
Nutrition follow-up: Diet: ADA consistent CHO PO intake 100% of most meals Labs reviewed Wt: 233# +BM RDN following.
--- NOTE | 2018-12-03 15:59 | MORECARE ---
CASE MANAGEMENT DISCHARGE SUMMARY PATIENT: DEEPTHI HARDY UNIT: [id number] ADM DATE: 11/29/18 AGE: 43 : [birth year] SEX: F ROOM/BED: D.9842 AUTHOR: SUZIE,DOC PHYSICIAN: REFERRING PHYSICIAN: JOO CLAYTON MD DATE OF SERVICE: 12/03/18 Discharge Plan Patient Name: DEEPTHI HARDY Facility: [facility]:[place] : 1975 Planned Disposition: Home Anticipated Discharge Date: Discharge Date: Expected LOS: Initial Reviewer: [email or web address] Initial Review Date: 12/03/2018 Generated: 12/03/18 4:59 pm Comments DCP- Discharge Planning Updated by [email or web address]: Mike James on 12/03/18 2:[address] Patient Name: DEEPTHI HARDY Admission Status: ER Accout number: [id number] Admission Date: 11-29-2018 : 1975 Admission Diagnosis:ATHSCL TEJON ARTERIES OF EXTREMITIES W REST PAIN, RIGH Attending: JOO CLAYTON Current LOS: 4 Anticipated DC Date: Planned Disposition: Home Primary Insurance: MEDICARE A & B Discharge Planning Comments: CM MET WITH PT IN ROOM TO DISCUSS DISCHARGE PLANNING AND NEEDS. PT REPORTS LIVING AT HOME INDEPENDENTLY WITH HER MOM, STEP DAD AND BROTHER. PT HAS NO MEDICAL EQUIPMENT AND NO OUTSIDE SERVICES ASSISTING IN THE HOME. CM DISCUSSED AVAILABILITY OF HOME HEALTH, REHAB SERVICES AND MEDICAL EQUIPMENT. PT DENIES DISCHARGE NEEDS, REPORTS HER MOM WILL PICK HER UP FOR DISCHARGE HOME. IMPORTANT MESSAGE FROM MEDICARE PROVIDED AND EXPLAINED. PT PLANS TO DISCHARGE HOME WITH FAMILY, HAS NO ANTICIPATED DISCHARGE NEEDS AT THIS TIME. FAMILY TO AGING DEPARTMENT SUPERVISOR FOR TRANSPORT HOME. CM TO FOLLOW AND ASSIST IF NEEDED. Polisher Sand: Mike James DCPIA - Discharge Planning Initial Assessment Updated by [id number]: Mike James on 12/03/18 3:58 pm * Is the patient Alert and Oriented? Yes * How many steps to enter\exit or inside your home? * PCP DR. MONGE, [facility] * Pharmacy [facility] * Preadmission Environment Home with Family * ADLs Independent * Equipment None * Other Equipment NO MEDICAL EQUIPMENT PROVIDER PREFERENCE * List name and contact numbers for known caregivers / representatives who currently or will assist patient after discharge: MILAGRO HARDY, MOTHER, * Verbal permission to speak to the caregivers and representatives has been obtained from the patient. N/A * Community resources currently utilized None * Please name any agencies selected above. NONE * Additional services required to return to the preadmission environment? No * Can the patient safely return to the preadmission environment? Yes * Has this patient been hospitalized within the prior 30 days at any hospital? No Patient Name: DEEPTHI HARDY Page [phone] at 1559 All edits/amendments must be made on the electronic document DICTATION DATE: 12/03/181557 REFERENCE AND INSTRUCTION LIBRARIAN: ANTHONY 12/03/181557 RPT#: [id number] DC DATE: STATUS: ADM IN [facility] [address] [place] [address] END OF REPORT
--- NOTE | 2018-12-03 17:22 | NUR ---
RECEIVED VERBAL ORDERS FROM TO ADMINISTER ORDERED DOSE OF PLAVIX AND DC THE HEPARIN WELL THE MORPHINE HVAC DESIGNER. WASTED 14ML OF MORPHINE INTO SHARPS CONTAINER. PT DENIES ANY NEEDS. WILL CTM.
[2018-12-03 17:47] VITALS: BP 100/64
[2018-12-03 17:56] VITALS: BP 118/60
--- NOTE | 2018-12-03 18:07 | EC ---
PATIENT:DEEPTHI HARDY DATE OF SERVICE: 11/29/18 SEX: F MEDICAL RECORD: [id number] DATE OF : [birth year] LOCATION:D. D.212 AGE OF PATIENT: 43 ADMISSION DATE: 11/29/18 REFERRING PHYSICIAN: INTERPRETING PHYSICIAN: SO LOVING MD ECHOCARDIOGRAM REPORT ECHO CHARGES 4 ECHO COMPLETE Date: 12/03/18 CLINICAL DIAGNOSIS: DYSPNEA ECHOCARDIOGRAPHIC MEASUREMENTS (adult normal given) AC root (d.<3.7cm) 3.3 cm LV Septum d (<1.2 cm> 1.2 cm Valve Excursion 1.5 cm LV Septum (systole) 1.5 cm Left Atria (s.<4.0cm> 3.8 cm LVPW d(<1.2cm) 1.4 cm RV (d.<2.3cm) 3.6 cm LVPW (sytole) 1.7 cm LV diastole(<5.6CM) 5.1 cm MV E-F(>70mm/sec) cm LV systole 4.0 cm LVOT Diameter 2.0 cm MV exc.(>10mm) 1.4 cm Est.ejection fraction (50-75%) % DOPPLER: LVIT cm/sec A 74.0 cm/sec E 87.0 cm/sec LA cm/sec RVSP 117 mmHg LVOT 120 cm/sec AOP1/2T 24 m/s Asc. Ao 150 cm/sec RVOT 93 cm/sec RA cm/sec PA cm/sec AV Gradient Peak 9.00 mmHg AV Mean 5.07 mmHg AV Area 2.8 cm MV Gradient Peak 75.12mmHg MV Mean 2.57 mmHg MV Area cm COMMENTS: Boiler Helper: Kylie FULLER Eligibility Supervisor: 1 Dr. Loving TAPE# PACS Pericardial Effusion N DATE OF SERVICE: 12/03/2018 FINDINGS: 1. Left ventricular chamber size is within normal limits. Left ventricular systolic function is normal. Overall ejection fraction is estimated at 60%. 2. Left atrium, right atrium, and right ventricular chamber sizes are within normal limit. 3. Valvular structures have normal structure and motion. 4. Doppler interrogation reveals trace mitral regurgitation and trace tricuspid regurgitation. No other valvular insufficiency or stenosis. Pulmonary systolic ECHOCARDIOGRAM REPORT [id number] DEEPTHI HARDY pressure is estimated at 24 mmHg. 5. No evidence of pericardial effusion or left ventricular thrombus. TRANSINT:[id number] Voice Confirmation ID: [id number] DOCUMENT ID: [id number] SO LOVING MD at 1807 CC: [id number] DICTATION DATE: 12/03/18 1626 ACTIVITIES MANAGER: 12/03/18 1725 ADM IN [facility] [address] [place] [id number]
--- NOTE | 2018-12-03 19:50 | NUR ---
ASSESSMENT COMPLETE, PT A&O. RESPERATOINS EVEN ON RA. IV TO LEFT ARM SL. SITE CLEAN AND DRY. DRSG TO LEFT GROIN C/D/I. RIGHT FOOT RED AND WARM TO TOUCH. OXYCODONE 2 TABS GIVEN AT PT REQUEST FOR C/O PAIN TO BACK AND FEET, RATES PAIN AT A 9 ON PAIN SCALE. HS MEDS GIVEN WITH FRESH ICE WATER. BS 205, COVERED PER S/S. PT DENIES OTHER NEEDS, BED LOW, CL IN REACH.
[2018-12-03 20:00] VITALS: BP 143/69
--- NOTE | 2018-12-03 21:36 | NUR ---
HS SNACK PROVIDED, LOTION ALSO PROVIDED AT PT REQUEST.
--- NOTE | 2018-12-03 23:49 | NUR ---
OXYCODONE 1 TAB GIVEN AT PT REQUEST FOR C/O PAIN.
[2018-12-04 00:30] VITALS: BP 116/58
--- NOTE | 2018-12-04 04:29 | NUR ---
I have reviewed this patient and I concur with the Shift Assessment completed by the Licensed Practical Nurse today this shift.
[2018-12-04 04:30] VITALS: BP 123/62
--- NOTE | 2018-12-04 05:16 | NUR ---
INLAYER SILVER AT BED SIDE, OFFERED PT A BATH, PT DECLINED, STATED THAT SHE DOES NOT WANT TO TAKE A BATH.
[2018-12-04 06:21] LABS: BASOPHILS 0.1 % (0-2); EOSINOPHILS 1.8 % (0-7); HEMATOCRIT 35.1 % (36.0-48.0); HEMOGLOBIN 11.6 g/dL (12-16); IMMATURE GRANULOCYTES 0.1 % (0-5); MCV 84.6 fL (80.0-100.0); MEAN PLATELET VOLUME 10.2 fL (7.4-10.4); MONOCYTES 6.8 % (2-11); NEUTROPHILS 65.2 % (40-80); PLATELET COUNT 204 10x3/uL (130-400); RBC 4.15 10x6/uL (4.00-5.40); RDW 14.1 % (11.5-14.5); WBC 6.7 10x3/uL (4.8-10.8)
[2018-12-04 06:54] LABS: CALCIUM 8.5 mg/dL (8.5-10.1); CARBON DIOXIDE 27.2 mmol/L (21.0-32.0); CHLORIDE - SERUM 105 mmol/L (98-107); CREATININE - SERUM 0.5 mg/dL (0.6-1.3); POTASSIUM - SERUM 4.1 mmol/L (3.5-5.1); SODIUM 139 mmol/L (136-145); eGFR NON AFRICAN AMERICAN > 90 mL/min (90-120)
[2018-12-04 07:00] LABS: CALC OSMOLALITY 279 mosm/kg (275-300); GLUCOSE 143 mg/dL (74-106); UREA NITROGEN 13 mg/dL (7-18)
--- NOTE | 2018-12-04 07:10 | NUR ---
ASSESSMENT DONE. REDNESS AND FOUL ODOR NOTED TO LOWER ABDOMEN AND PERINEAL AREA. PT C/O LEFT FOOT PAIN. PERCOCET GIVEN PER ORDER. OTHERWISE NO DISTRESS NOTED. WILL CONTINUE TO MONITOR.
[2018-12-04 07:31] VITALS: BP 109/43
--- NOTE | 2018-12-04 09:00 | NUR ---
LEFT FOREARM IV LEAKING. IV D/C WITH CATHETER INTACT. IV RESITED TO RIGHT FOREARM X 2 STICKS. PT TOLERATED WELL. NS 0.9% INFUSING AT 125 ML/HR.
--- NOTE | 2018-12-04 10:00 | NUR ---
PT STATED THAT HER HEAD WAS HURTING. WAS INFORMED THAT IT WAS NOT TIME FOR HER PERCOCET AND SHE AGREED TO WAIT.
[2018-12-04 11:21] VITALS: BP 96/55
--- NOTE | 2018-12-04 13:00 | NUR ---
PT STATES HAVING A HARD TIME TAKING A BREATH. OXYGEN SAT 96% RA. RESPIRATIONS 16 EVEN AND UNLABORED. PLACED ON 2L NC PRN. PT STATES SHE FELT BETTER AFTER 2 MIN.
[2018-12-04 15:24] VITALS: BP 118/52
--- NOTE | 2018-12-04 17:31 | NUR ---
I have reviewed this patient and I concur with the Shift Assessment completed by the Licensed Practical Nurse today this shift.
[2018-12-04 20:00] VITALS: BP 138/67
[2018-12-05 00:15] VITALS: BP 146/64
[2018-12-05 04:30] VITALS: BP 132/62; BP 98/48
--- NOTE | 2018-12-05 04:43 | NUR ---
I have reviewed this patient and I concur with the Shift Assessment completed by the Licensed Practical Nurse today this shift.
[2018-12-05 06:17] LABS: BASOPHILS 0.3 % (0-2); HEMATOCRIT 34.9 % (36.0-48.0); HEMOGLOBIN 11.4 g/dL (12-16); IMMATURE GRANULOCYTES 0.3 % (0-5); LYMPHOCYTES 31.2 % (15-50); MCH 27.7 pg (26.0-34.0); MCHC 32.7 g/dL (31.0-37.0); MCV 84.9 fL (80.0-100.0); MEAN PLATELET VOLUME 10.7 fL (7.4-10.4); MONOCYTES 6.5 % (2-11); NEUTROPHILS 59.7 % (40-80); PLATELET COUNT 235 10x3/uL (130-400); RBC 4.11 10x6/uL (4.00-5.40); RDW 14.1 % (11.5-14.5); WBC 6.9 10x3/uL (4.8-10.8)
[2018-12-05 06:34] LABS: CALC OSMOLALITY 279 mosm/kg (275-300); CALCIUM 8.4 mg/dL (8.5-10.1); CARBON DIOXIDE 25.5 mmol/L (21.0-32.0); CHLORIDE - SERUM 108 mmol/L (98-107); CREATININE - SERUM 0.5 mg/dL (0.6-1.3); POTASSIUM - SERUM 4.1 mmol/L (3.5-5.1); SODIUM 141 mmol/L (136-145); UREA NITROGEN 13 mg/dL (7-18); eGFR NON AFRICAN AMERICAN > 90 mL/min (90-120)
[2018-12-05 06:35] LABS: GLUCOSE 78 mg/dL (74-106)
--- NOTE | 2018-12-05 08:00 | NUR ---
ASSESSMENT DONE. DENIES NEEDS.
[2018-12-05 11:02] VITALS: BP 117/51
--- NOTE | 2018-12-05 13:01 | NUR ---
I have reviewed this patient and I concur with the Shift Assessment completed by the Licensed Practical Nurse today this shift.
[2018-12-05 15:43] VITALS: BP 122/63
--- NOTE | 2018-12-05 16:48 | NUR ---
WITHOUT CHANGES OR DISTRESS NOTED AT THIS TIME. DENIES NEEDS.
--- NOTE | 2018-12-05 19:04 | NUR ---
RECIEVED UP IN BED WITH EYES OPEN AND TV ON. ALERT AND ORIENTED X4. UP AD FERNANDO TO B/R. IV TO RIGHT FA SL. DENIES ANY NEEDS AT THIS TIME.
[2018-12-05 20:25] VITALS: BP 115/51
[2018-12-05 20:57] LABS: COLOR YELLOW (YELLOW)
[2018-12-05 20:58] LABS: APPEARANCE CLEAR (CLEAR); BILIRUBIN NEGATIVE (NEGATIVE); GLUCOSE 250 mg/dL (NEGATIVE); KETONE NEGATIVE (NEGATIVE); NITRITE NEGATIVE (NEGATIVE); PROTEIN TRACE mg/dL (NEGATIVE); SPECIFIC GRAVITY 1.025 (1.005-1.020); UROBILINOGEN NORMAL (NORMAL)
[2018-12-05 20:59] LABS: BACTERIA MODERATE /hpf (NONE SEEN); EPITHELIAL CELLS 0-5 /hpf (0-5); RED CELLS - URINE 0-5 /hpf (0-5); WHITE CELLS - URINE 0-5 /hpf (0-5)
[2018-12-06 00:28] LABS: HEMOGLOBIN 11.4 g/dL (12-16); MCH 27.6 pg (26.0-34.0); MCHC 32.6 g/dL (31.0-37.0); MCV 84.7 fL (80.0-100.0); MEAN PLATELET VOLUME 10.1 fL (7.4-10.4); RBC 4.13 10x6/uL (4.00-5.40); RDW 14.2 % (11.5-14.5); WBC 7.2 10x3/uL (4.8-10.8)
[2018-12-06 00:37] VITALS: BP 136/71
[2018-12-06 03:47] VITALS: BP 104/56
[2018-12-06 05:36] LABS: BASOPHILS 0.1 % (0-2); HEMATOCRIT 35.4 % (36.0-48.0); HEMOGLOBIN 11.7 g/dL (12-16); IMMATURE GRANULOCYTES 0.1 % (0-5); MCH 28.2 pg (26.0-34.0); MCHC 33.1 g/dL (31.0-37.0); MCV 85.3 fL (80.0-100.0); MEAN PLATELET VOLUME 10.4 fL (7.4-10.4); NEUTROPHILS 60.8 % (40-80); PLATELET COUNT 234 10x3/uL (130-400); RBC 4.15 10x6/uL (4.00-5.40); RDW 14.2 % (11.5-14.5)
[2018-12-06 05:43] LABS: APTT 29.8 SECONDS (22.8-39.4); INR 1.05 (0.85-1.17); PROTIME 13.2 SECONDS (11.6-15.0)
[2018-12-06 06:05] LABS: ALBUMIN 2.4 g/dL (3.4-5.0); ALKALINE PHOSPHATASE 64 U/L (46-116); ALT (SGPT) 18 U/L (10-68); BILIRUBIN - TOTAL 0.16 mg/dL (0.2-1.3); CALC OSMOLALITY 279 mosm/kg (275-300); CALCIUM 8.7 mg/dL (8.5-10.1); CARBON DIOXIDE 25.3 mmol/L (21.0-32.0); CHLORIDE - SERUM 107 mmol/L (98-107); CREATININE - SERUM 0.5 mg/dL (0.6-1.3); GLUCOSE 75 mg/dL (74-106); POTASSIUM - SERUM 4.3 mmol/L (3.5-5.1); PROTEIN - SERUM 5.7 g/dL (6.4-8.2); SODIUM 141 mmol/L (136-145); UREA NITROGEN 13 mg/dL (7-18); eGFR NON AFRICAN AMERICAN > 90 mL/min (90-120)
--- NOTE | 2018-12-06 07:58 | NUR ---
ALERT AND ORIENTED. UP AB FERNANDO. RIGHT FA SL. DENIES ANY NEEDS AT PRESENT TIME. SR UP WITH CALL LIGHT IN REACH. ABD FOLD REDDED.
[2018-12-06 08:43] VITALS: BP 108/54
[2018-12-06 12:24] VITALS: BP 137/63
--- NOTE | 2018-12-06 13:40 | NUR ---
FEELING BETTER SINCE PAIN MEDS GIVEN, FAMILY AT BEDSIDE WILL MONITOR
[2018-12-06 16:08] VITALS: BP 133/60
[2018-12-06 20:20] VITALS: BP 118/65
--- NOTE | 2018-12-06 21:18 | NUR ---
WAS TOLD IN REPORT SHOWER WAS DONE ON DAYSHIFT
[2018-12-07 00:02] VITALS: BP 155/94
[2018-12-07 00:53] LABS: HEMATOCRIT 35.8 % (36.0-48.0); HEMOGLOBIN 11.9 g/dL (12-16); MCH 28.2 pg (26.0-34.0); MCHC 33.2 g/dL (31.0-37.0); MCV 84.8 fL (80.0-100.0); MEAN PLATELET VOLUME 10.2 fL (7.4-10.4); RBC 4.22 10x6/uL (4.00-5.40); WBC 7.2 10x3/uL (4.8-10.8)
[2018-12-07 03:50] VITALS: BP 129/61
--- NOTE | 2018-12-07 04:36 | NUR ---
SLEEPING, NO DISTRESS NOTICED AT THIS TIME, BED IS LOW, SRX2, CALL LIGHT IN REACH, WILL CONTINUE PLAN OF CARE
--- NOTE | 2018-12-07 05:12 | NUR ---
I have reviewed this patient and I concur with the Shift Assessment completed by the Licensed Practical Nurse today this shift.
[2018-12-07 05:23] LABS: BASOPHILS 0.3 % (0-2); HEMOGLOBIN 11.4 g/dL (12-16); IMMATURE GRANULOCYTES 0.2 % (0-5); LYMPHOCYTES 27.9 % (15-50); MCH 27.6 pg (26.0-34.0); MCHC 32.6 g/dL (31.0-37.0); MCV 84.7 fL (80.0-100.0); MEAN PLATELET VOLUME 10.5 fL (7.4-10.4); MONOCYTES 7.1 % (2-11); NEUTROPHILS 62.5 % (40-80); PLATELET COUNT 252 10x3/uL (130-400); RBC 4.13 10x6/uL (4.00-5.40); WBC 6.6 10x3/uL (4.8-10.8)
[2018-12-07 05:33] LABS: ALBUMIN 2.3 g/dL (3.4-5.0); ALKALINE PHOSPHATASE 63 U/L (46-116); ALT (SGPT) 20 U/L (10-68); CALC OSMOLALITY 282 mosm/kg (275-300); CALCIUM 8.7 mg/dL (8.5-10.1); CARBON DIOXIDE 27.4 mmol/L (21.0-32.0); CHLORIDE - SERUM 104 mmol/L (98-107); CREATININE - SERUM 0.6 mg/dL (0.6-1.3); POTASSIUM - SERUM 4.5 mmol/L (3.5-5.1); PROTEIN - SERUM 5.7 g/dL (6.4-8.2); SODIUM 138 mmol/L (136-145); UREA NITROGEN 12 mg/dL (7-18); eGFR NON AFRICAN AMERICAN > 90 mL/min (90-120)
[2018-12-07 05:45] LABS: GLUCOSE 222 mg/dL (74-106)
--- NOTE | 2018-12-07 07:49 | NUR ---
ALERT AND ORIENTED. RIGHT FA SL. RIGHT LEG RED AND WARM. DENIES AND NEEDS. SR UP WITH CALL LIGHT IN REACH. WILL MONITOR
[2018-12-07 07:53] VITALS: BP 105/46
[2018-12-07 11:17] VITALS: BP 111/58
--- NOTE | 2018-12-07 12:12 | NUR ---
I have reviewed this patient and I concur with the Shift Assessment completed by the Licensed Practical Nurse today this shift.
[2018-12-07 15:59] VITALS: BP 110/44
--- NOTE | 2018-12-07 17:56 | NUR ---
LYING QUIETLY. SL TO RIGHT FA. WILL BE NPO AFTER MIDNIGHT.
--- NOTE | 2018-12-07 19:15 | NUR ---
RECEIVED REPORT, WILL ASSUME CARE OF PT, SITTING ON SIDE OF BED VISITING WITH FAMILY, BED IS LOW, SRX2, CALL LIGHT IN REACH, WILL CONTINUE PLAN OF CARE
[2018-12-07 20:15] VITALS: BP 136/67
[2018-12-08] VITALS (52 sets, daily range): BP systolic 114–149; BP diastolic 55–77
[2018-12-08 00:38] LABS: HEMATOCRIT 39.1 % (36.0-48.0); HEMOGLOBIN 12.8 g/dL (12-16); MCH 28.2 pg (26.0-34.0); MCHC 32.7 g/dL (31.0-37.0); MCV 86.1 fL (80.0-100.0); RBC 4.54 10x6/uL (4.00-5.40)
--- NOTE | 2018-12-08 03:28 | NUR ---
DIOMEDES MOCTEZUMA IN ROOM PREP-CLIP FROM NAVEL TO RIGHT ANKLE, PT ALSO IN SHOWER DOING HIBICLENSE
[2018-12-08 05:20] LABS: BASOPHILS 0.3 % (0-2); EOSINOPHILS 1.6 % (0-7); HEMATOCRIT 39.8 % (36.0-48.0); HEMOGLOBIN 13.2 g/dL (12-16); IMMATURE GRANULOCYTES 0.1 % (0-5); LYMPHOCYTES 23.9 % (15-50); MCH 28.3 pg (26.0-34.0); MCHC 33.2 g/dL (31.0-37.0); MCV 85.4 fL (80.0-100.0); MEAN PLATELET VOLUME 10.1 fL (7.4-10.4); MONOCYTES 7.4 % (2-11); NEUTROPHILS 66.7 % (40-80); PLATELET COUNT 284 10x3/uL (130-400); RBC 4.66 10x6/uL (4.00-5.40); WBC 7.9 10x3/uL (4.8-10.8)
[2018-12-08 06:30] LABS: ALBUMIN 2.8 g/dL (3.4-5.0); ALKALINE PHOSPHATASE 74 U/L (46-116); ALT (SGPT) 22 U/L (10-68); BILIRUBIN - TOTAL 0.21 mg/dL (0.2-1.3); CALC OSMOLALITY 282 mosm/kg (275-300); CALCIUM 9.5 mg/dL (8.5-10.1); CARBON DIOXIDE 30.3 mmol/L (21.0-32.0); CHLORIDE - SERUM 100 mmol/L (98-107); GLUCOSE 238 mg/dL (74-106); PROTEIN - SERUM 6.8 g/dL (6.4-8.2); SODIUM 137 mmol/L (136-145); UREA NITROGEN 15 mg/dL (7-18)
[2018-12-08 06:32] LABS: CREATININE - SERUM 0.8 mg/dL (0.6-1.3); POTASSIUM - SERUM 5.2 mmol/L (3.5-5.1); eGFR NON AFRICAN AMERICAN 83 mL/min (90-120)
--- NOTE | 2018-12-08 08:28 | NUR ---
BODY ODOR NOTED, DRAINING GLAND LEFT UNDERARM, REDENED SKIN BILATERAL GROIN, INGUINAL , LOWER ABDOMEN AREA, SKIN TEAR LEFT . PUBIS AREA PUS NOTED. POOR HYGINE.
[2018-12-08 13:05] LABS: HEMATOCRIT 34.4 % (36.0-48.0); HEMOGLOBIN 11.3 g/dL (12-16)
--- NOTE | 2018-12-08 15:00 | NUR ---
PT ARRIVED TO ROOM APPROX 1400 WITH OR TEAM O2 6L NC L SUBCLAVIAN CVL DRESSING CDI WITH NS 100ML/HR, NITRO 25ML/HR, ZINACEF, CLEVIPREX AND FOREST RESOURCES PROFESSOR INITIATED PER EMAR, R RADIAL A LINE ZEROED, WRIST PROTECTOR IN PLACE, GOOD WAVEFORM, R GROIN INCISION SITE CDI, SOFT, NO SIGNS OF BLEEDING, DRESSING FROM GROIN TO ANKLE WITH RLE PULSES DOPPLERED, WEAK, RLE ILIANA COMPRESSED WITH BLOODY DRAINAGE, CRITICORE DRAINING YELLOW URINE EDUCATED ON USE OF FOREST RESOURCES PROFESSOR AND CALL LIGHT, BED ALARM ON FAMILY UPDATED BY DR CHEN, SECURITY CODE SET UP BY MOTHER
--- NOTE | 2018-12-08 17:31 | NUR ---
PULSES CONTINUE TO BE DOPPLERED. REPOSITIONED. MOM HERE FOR VISITING HOURS, DENIES QUESTIONS.
--- NOTE | 2018-12-08 19:02 | NUR ---
BEDSIDE SHIFT REPORT GIVEN BY DEPARTING RN. PT LAYING IN BED WITH EYES CLOSED. AAOX4. PERRLA. C/O INCISIONAL PAIN OF 10/10. NATURAL RESOURCE ECONOMIST PUMP REVIEWED WITH PT. VERBALIZES UNDERSTANDING. RT A LINE NOTED. LEFT SUBCLAVIAN CVL NOTED AND INFUSING MD ORDERED MEDS. WILL WEAN NITRO AND CLEVIPREX PER PROTOCOL. SEE IV DRIP FLOWSHEET FOR DETAILS. F/C DRAINAING TO GRAVITY. 5L NC WITH O2 SAT 100%. AFEBRILE. PT REQUESTING FAN. ACCOMMODATED. ASSISTED IN REPOSITIONING PT AND KEEPING RT LEG STRAIGHT. PILLOW PLACED UNDER HIP. ASSESSMENT COMPLETE. SEE FS FOR DETAILS. SAFETY MEASURES IN PLACE. CBIR.
--- NOTE | 2018-12-08 20:00 | NUR ---
FAMILY AT BEDSIDE. UPDATE GIVEN. ALL QUESTIONS ANSWERED. PT REQUESTING SNACK.
--- NOTE | 2018-12-08 21:19 | NUR ---
BETZAIDA WALTON GIVEN TO PT PER REQUEST. HS MEDS GIVEN WITHOUT DIFFICULTY.
--- NOTE | 2018-12-08 22:06 | NUR ---
CLEVIPREX WEANED OFF PER PROTOCOL. SEE IV DRIP FLOWSHEET FOR DETAILS.
--- NOTE | 2018-12-08 22:58 | NUR ---
REASSESSMENT COMPLETE. CONTINUING TO WEAN NITRO. PT TOELRATING WELL. NC OFF PT. O2 SAT 95%. WILL REMAIN ON RA. NO OTHER CHANGES IN PT CONDITION. LAYING IN BED WITH EYES CLOSED. DENIES ANY NEEDS AT THIS TIME. SAFETY MEASURES IN PLACE. CBIR.
--- NOTE | 2018-12-08 23:28 | NUR ---
NITRO WEANED OFF PER PROTOCOL. PT TOLERATING WELL. SEE IV DRIP FLOWSHEET FOR DETAILS.
[2018-12-09] VITALS (23 sets, daily range): BP systolic 108–145; BP diastolic 52–72
--- NOTE | 2018-12-09 02:35 | NUR ---
CHG BATH GIVEN. LINENS CHANGED. ORAL CARE PROVIDED. VEE CARE PROVIDED. LEFT ARMPIT WOUND OOZING THICK GREEN PURULENT DRAINAGE WITHOUT ASSISTANCE. BP CUFF REPLACED D/T DRAINAGE. TOLERATED WELL. SAFETY MEASURES IN PLACE. CBIR.
--- NOTE | 2018-12-09 03:40 | NUR ---
REASSESSMENT COMPLETE. NO NEW CHANGES IN PT CONDITION. VSS. LAYING IN BED WITH EYES CLOSED. DENIES ANY NEEDS AT THIS TIME. SAFETY MEASURES IN PLACE. CBIR.
[2018-12-09 05:56] LABS: BASOPHILS 0.2 % (0-2); EOSINOPHILS 0.2 % (0-7); HEMATOCRIT 31.8 % (36.0-48.0); HEMOGLOBIN 10.4 g/dL (12-16); IMMATURE GRANULOCYTES 0.2 % (0-5); LYMPHOCYTES 18.9 % (15-50); MCH 27.8 pg (26.0-34.0); MCHC 32.7 g/dL (31.0-37.0); MEAN PLATELET VOLUME 9.9 fL (7.4-10.4); MONOCYTES 11.1 % (2-11); NEUTROPHILS 69.4 % (40-80); PLATELET COUNT 256 10x3/uL (130-400); RBC 3.74 10x6/uL (4.00-5.40); RDW 13.9 % (11.5-14.5)
[2018-12-09 06:05] LABS: WBC 12.8 10x3/uL (4.8-10.8)
[2018-12-09 06:22] LABS: ALBUMIN 2.2 g/dL (3.4-5.0); ALKALINE PHOSPHATASE 57 U/L (46-116); ALT (SGPT) 19 U/L (10-68); BILIRUBIN - TOTAL 0.25 mg/dL (0.2-1.3); CALCIUM 8.4 mg/dL (8.5-10.1); CARBON DIOXIDE 27.2 mmol/L (21.0-32.0); CHLORIDE - SERUM 106 mmol/L (98-107); PROTEIN - SERUM 5.6 g/dL (6.4-8.2); SODIUM 139 mmol/L (136-145); UREA NITROGEN 13 mg/dL (7-18)
[2018-12-09 06:23] LABS: CALC OSMOLALITY 278 mosm/kg (275-300); CREATININE - SERUM 0.5 mg/dL (0.6-1.3); GLUCOSE 121 mg/dL (74-106); POTASSIUM - SERUM 4.2 mmol/L (3.5-5.1); eGFR NON AFRICAN AMERICAN > 90 mL/min (90-120)
--- NOTE | 2018-12-09 07:00 | NUR ---
REPORT RECEIVED FROM THE OFF GOING RN. SEE ASSESSMENT IN THE PTS FLOW SHEET. PT LYING IN BED. SINUS TACH ON THE MONITOR. LEFT SUBCLAVIAN DRESSING C/D/I. MORPHINE REGISTERED CLINICAL DIETITIAN NOTED. SEE REGISTERED CLINICAL DIETITIAN FLOW SHEET. LEFT AXILLA SORE NOTED. AREA CLEANED WITH HIPACLEANSE. PURULENT DRAINAGE NOTED. PT STATED THAT IS A CHORNIC WOUND. R RADIAL GABINO NOTED. DRESSING C/D/I. WRIST PROTECTOR ON AND IN PLACE. FC NOTED. PERICARE PROVIDED. CLEAR YELLOW URINE NOTED. R GROIN DRESSING NOTED. RLE DRESSING C/D/I WITH SINGLE ILIANA DRAIN NOTED. LLE PULSES PALPABLE. RLE DP AND PT DOPPLERABLE. VSS AT THIS TIME. CALL LIGHT IN REACH. WILL CONT POC.
--- NOTE | 2018-12-09 09:53 | NUR ---
DR CHEN AT THE PTS BEDSIDE. DECREASE IV FLUIDS TO 30 CC/H. OK TO GET OOB. POSTERIOR TIBIAL AND DORALIS PEDIS PULSES DOPPLERABLE.
--- NOTE | 2018-12-09 09:54 | NUR ---
DR CHEN ORDERED TO DC A-LINE AND CVP
--- NOTE | 2018-12-09 10:27 | NUR ---
GABINO HELTON WITH THE CATHETER TIP INTACT. DRESSING C/D/I.
--- NOTE | 2018-12-09 11:20 | NUR ---
DRESSING TO THE RLE CHANGED PER ORDRES. WELL APPROIXMATED IMAN NOTED. PT TOLERATED WELL. WILL CONT POC
--- NOTE | 2018-12-09 11:40 | NUR ---
PHYSICAL THEARPY ASSISTED THE PT OOB AND INTO THE BEDSIDE CHAIR. PT TOLERATED WELL. WILL CONT POC.
--- NOTE | 2018-12-09 14:23 | NUR ---
Nutrition follow-up: Pt s/p fem-pop Diet advanced to ADA PO intake has been 100% of meals Labs reviewed'Wt: 241# RDN following.
--- NOTE | 2018-12-09 17:47 | NUR ---
PT ASSISTED OUT OF THE CHAIR AND INTO BACK INTO BED. RLE ELEVATED ON 2 PILLOWS FOR SWELLING. PT STATES PAIN IS 10/10. DR CHNE NOTIFIED ABOUT FOOT BEING RED AND SWOLLEN. HE STATED TO ELEVATE EXTRIMITY. ORDERS FOR IM MORPHINE AND TORADOL. SEE ORDERS FOR DETIALS.
--- NOTE | 2018-12-09 19:00 | NUR ---
REPORT RECEIVED, SHIFT ASSESSMENT PER FLOW SHEET, PT AAOx4, C/O RLE PAIN RATED 10/10 ON NUMERIC PAIN SCALE, MORPHINE CERTIFIED RESPIRATORY THERAPIST REVIEWED WITH PT, CERTIFIED RESPIRATORY THERAPIST CONTROLLER IN PT HAND, WILL CONTINUE TO ASSESS, RLE TINDER TO LIGHT PALPATION, ELEVATED EXTREMITY, PULSES DOPLERABLE, OTHER PPP, SINUS TACH ON CM, OTHER VSS
--- NOTE | 2018-12-09 23:00 | NUR ---
REASSESSMENT COMPLETE SEE FLOW SHEET, NO ACUTE CHANGES NOTED, PT C/O PAIN TO RLE SEE FLOWSHEET, INTERNET MARKETING STRATEGIST NOT INITIATED BY PT, REVIEWED AND REORIENTED PT ON INTERNET MARKETING STRATEGIST, ALL DRSG'S C/D/I, WILL CONTINUE TO ASSESS
[2018-12-10] VITALS (24 sets, daily range): BP systolic 93–143; BP diastolic 47–68
--- NOTE | 2018-12-10 00:50 | NUR ---
NOTIFIED OF ELEVATED TEMPERATURE 101.9 DEG ORAL, NO NEW ORDERS RECEIVED, WILL CONTINUE TO MONITOR
[2018-12-10 01:27] LABS: HEMATOCRIT 29.5 % (36.0-48.0); HEMOGLOBIN 9.7 g/dL (12-16); MCHC 32.9 g/dL (31.0-37.0); MCV 85.3 fL (80.0-100.0); MEAN PLATELET VOLUME 9.6 fL (7.4-10.4); RBC 3.46 10x6/uL (4.00-5.40); RDW 14.2 % (11.5-14.5); WBC 13.2 10x3/uL (4.8-10.8)
--- NOTE | 2018-12-10 03:00 | NUR ---
REASSESSMENT PER FLOW SHEET, NO ACUTE CHANGES NOTED FROM PREVIOUS ASSESSMENT, SINUS TACH ON CM, OTHER VSS, PT SLEEPING WITH EYES CLOSED
--- NOTE | 2018-12-10 06:00 | NUR ---
CHG BATH WITH COMPLETE LINEN AND GOWN CHANGE, ALL DRSG'S C/D/I, VSS, I/O'S AND LABS COLLECTED, NO FURTHER NEEDS AT THIS TIME, WILL CONTINUE TO MONITOR
[2018-12-10 06:36] LABS: BASOPHILS 0.2 % (0-2); EOSINOPHILS 0.6 % (0-7); HEMATOCRIT 28.5 % (36.0-48.0); HEMOGLOBIN 9.3 g/dL (12-16); IMMATURE GRANULOCYTES 0.3 % (0-5); LYMPHOCYTES 17.3 % (15-50); MCHC 32.6 g/dL (31.0-37.0); MCV 85.8 fL (80.0-100.0); MEAN PLATELET VOLUME 9.6 fL (7.4-10.4); MONOCYTES 11.2 % (2-11); NEUTROPHILS 70.4 % (40-80); PLATELET COUNT 235 10x3/uL (130-400); RBC 3.32 10x6/uL (4.00-5.40); RDW 14.1 % (11.5-14.5); WBC 12.5 10x3/uL (4.8-10.8)
[2018-12-10 06:57] LABS: ALKALINE PHOSPHATASE 59 U/L (46-116); ALT (SGPT) 20 U/L (10-68); BILIRUBIN - TOTAL 0.46 mg/dL (0.2-1.3); CALC OSMOLALITY 274 mosm/kg (275-300); CARBON DIOXIDE 25.9 mmol/L (21.0-32.0); CHLORIDE - SERUM 104 mmol/L (98-107); CREATININE - SERUM 0.6 mg/dL (0.6-1.3); GLUCOSE 107 mg/dL (74-106); POTASSIUM - SERUM 4.2 mmol/L (3.5-5.1); PROTEIN - SERUM 5.5 g/dL (6.4-8.2); SODIUM 137 mmol/L (136-145); UREA NITROGEN 14 mg/dL (7-18); eGFR NON AFRICAN AMERICAN > 90 mL/min (90-120)
--- NOTE | 2018-12-10 08:12 | NUR ---
ASSISTED PT TO CHAIR AT THIS TIME. HR IN 130S. BREAKFAST TRAY DELIVERED AND SET UP. SEMICONDUCTOR ASSEMBLER AVAILABLE FOR PAIN MANAGEMENT. WILL CONTINUE TO MONITOR.
--- NOTE | 2018-12-10 10:48 | NUR ---
ASSISTED PT UP TO BEDSIDE COMMODE. NO STOOL NOTED. PASSED GAS. ASSISTED BACK TO CHAIR.
--- NOTE | 2018-12-10 12:10 | NUR ---
Nutrition follow-up: Diet: ADA consistent CHO PO Intake 100% of meals Wt: 247# Glucose under better control Labs reviewed +BM RDN following.
--- NOTE | 2018-12-10 13:11 | OP ---
PATIENT NAME: DEEPTHI HARDY MEDICAL RECORD: [id number] :[birth year] LOCATION:[facility] ADMISSION DATE:11/29/18 SURGEON: CATRACHO CHEN MD DATE OF OPERATION: 12/08/2018 SURGEON: Catracho Chen MD ANESTHESIA: General, Dr. Leon. OPERATION PERFORMED: Salvage right in situ femoral distal posterior tibial artery bypass for rest pain. 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 INDICATION FOR OPERATION: Rest pain. FINDINGS OF THE OPERATION: The target vessel was a poor vessel, but graftable. It was 1.5 mm in diameter. The vein was of good quality. The venogram demonstrated several venous perforators. ESTIMATED BLOOD LOSS: Less than 150 mL. DESCRIPTION OF PROCEDURE: After informed consent and adequate preoperative medication evaluation, the patient was brought to the operating room, placed on the table in supine position. After induction of general endotracheal anesthesia and application of appropriate monitoring devices, the right leg and abdomen were prepped and draped in sterile field, utilizing Betadine scrub, alcohol, and Betadine solution. Betadine-impregnated drape was also used. After timeout, an incision was made in the lower leg posterior medial to the tibia and dissection carried down to the fascia. The saphenous vein was identified and dissected proximally and distally. The portion at the knee became more superficial with a small deep branch. This branch was ligated to facilitate passing of instruments. Attention was then turned toward the deep fascia, which was opened and the gastrocnemius were active posteriorly. The soleus was taken off the tibia for approximately 20 cm. The posterior tibial artery was identified and dissected free of surrounding structures and soaked in papaverine. Attention was then turned toward the right groin and oblique incision was made below the inguinal ligament. Dissection carried down the fascia. The saphenous vein was identified and dissected to the bulb and distally. Attention was then turned towards the artery. The superficial femoral artery was dissected free of surrounding structures and a soft area identified. The patient then underwent a venogram and 2 perforators were identified and marked the leg. Then, was incised over the area to be inspected and the saphenous vein was identified and the perforated branches divided utilizing 4-0 silk and ligaclips. Attention was then turned towards the groin once again and the saphenous vein amputated and oversewn with a 3-0 Prolene suture. The patient was given a calculated dose of OPERATIVE REPORT [id number] DEEPTHI HARDY heparin and after 3 minutes, clamps were applied to the artery. The artery was opened and extended with Butts scissors. The saphenous vein was then sutured to the superficial femoral artery end-to-side utilizing running 6-0 Prolene suture. The graft was pressurized utilizing a LeMaitre valvulotome. The valves were made incompetent with good flow at the distal end of the saphenous vein. Attention was then turned towards the posterior tibial artery. It was surrounded with micro Vesseloops and Acland clamps applied. The vessel was opened and extended proximally and distally. The vein was trimmed and an end-to-side anastomosis to the posterior tibial artery was then made utilizing a running 8-0 Prolene suture. All maneuvers to remove trapped air were performed. The clamps were removed sequentially and there was good pulsatile flow and Doppler flow through the graft into the posterior tibial artery. The patient was given a calculated dose of protamine to reverse the heparin. Hemostasis was achieved. A #10 Pipo-Lei drain was left in the depths of the wound lower leg and connected to suction. The instrument counts and sponge counts were correct times 2. The lower leg was closed in layers of interrupted 2-0 Vicryl and skin chad. The mid thigh incision was closed utilizing 2-0 Vicryl and skin chad. The upper incision was closed utilizing 2-0 Vicryl on deep subcutaneous tissue, 3-0 Vicryl on superficial subcutaneous tissue, and skin closed utilizing 4-0 Monocryl suture. Sterile dressings were applied. The patient tolerated the procedure well and was transferred to the [facility] ICU in satisfactory condition. TRANSINT:[id number] Voice Confirmation ID: [id number] DOCUMENT ID: [id number] CATRACHO CHEN MD at 1311 CC: [id number] DICTATION DATE: 12/08/18 1355 SEAT PACK INSPECTOR: 12/08/18 1612 ADM IN [facility] [id number] [place] [address]
--- NOTE | 2018-12-10 18:30 | NUR ---
CHG BATH GIVEN AT THIS TIME. NEOSPORIN APPLIED TO LEFT AXCILLA. CVL DRESSING CHANGED PER ORDERS. LLE DRESSING CHANGED PER ORDERS. IODINE OINTMENT APPLIED TO INCISION, 4X4'S, BULKEE LITE GAUZE USE TO SECURE 4X4'S. PT TOLERATED WELL. CONTINUES ON MORPHINE AMUSEMENT PARK WORKER. NO FURTHER NEEDS. WILL CONTINUE TO MONITOR.
--- NOTE | 2018-12-10 19:20 | NUR ---
Received patient resting in bed with eyes open, assessment completed per flowsheet. Patient AO x4, answers appropriately/follows instructions. S1/S2 noted Sinus Tach on telemetry, rythmic and regular. Breathing is even/unlabored on room air with O2 sat 98%, lung sounds clear bilateral upper and mid with diminished lower. Abdomen is obese/soft with bowel sounds active x4, non-tender. R groin incision dressing CDI, soft to palpation with no bruising noted. RLE ILIANA x1 with small bloody drainage, compressed with dressing CDI. Upper pulses palpable with lower pulses doppler, skin warm/dry with cap refill < 3 sec. C/O intermittent/break through pain /10, GRAIN TRIMMER in use. Repositioned for comfort, see flowsheet for details. All VSS and will continue to monitor.
--- NOTE | 2018-12-10 23:10 | NUR ---
Reassessment completed per flowsheet, no changes noted from previous assessment. S1/S2 noted NSR on telemetry, rythmic and regular. Breathing is even/unlabored on room air with O2 sat 94%, lung souncs clear bilateral upper and mid with diminished lower. R groin incision dressing CDI, no bleeding/bruising noted. R leg ILIANA x1 with small bloody drainage, dressing CDI. R lower pulse weak/doppler, weakness and 3+ edema noted. CAR SUPERVISOR in use, denies needs at this time. See flowsheet for details, all VSS and will continue to monitor.
[2018-12-11] VITALS (27 sets, daily range): BP systolic 93–137; BP diastolic 45–77
--- NOTE | 2018-12-11 02:55 | NUR ---
Reassessment completed per flowsheet, no changes noted from previous assessment. R groin incision dressing CDI, no bleeding/bruising noted. R leg ILIANA x1 with small bloody drainage, dressing CDI. RLE 3+ edema noted with pulses weak/doppler, skin warm/dry. C/O incsional pain 7/10, ASSOCIATE ATTORNEY in use. No further needs at this time, see flowsheet for details. All VSS and will continue to monitor.
[2018-12-11 06:32] LABS: ALBUMIN 2.1 g/dL (3.4-5.0); ALKALINE PHOSPHATASE 65 U/L (46-116); ALT (SGPT) 20 U/L (10-68); BILIRUBIN - TOTAL 0.38 mg/dL (0.2-1.3); CALC OSMOLALITY 272 mosm/kg (275-300); CALCIUM 8.4 mg/dL (8.5-10.1); CARBON DIOXIDE 24.2 mmol/L (21.0-32.0); CHLORIDE - SERUM 104 mmol/L (98-107); CREATININE - SERUM 0.6 mg/dL (0.6-1.3); GLUCOSE 79 mg/dL (74-106); POTASSIUM - SERUM 3.7 mmol/L (3.5-5.1); PROTEIN - SERUM 6.1 g/dL (6.4-8.2); SODIUM 136 mmol/L (136-145); eGFR NON AFRICAN AMERICAN > 90 mL/min (90-120)
[2018-12-11 06:36] LABS: UREA NITROGEN 18 mg/dL (7-18)
[2018-12-11 06:42] LABS: BASOPHILS 0.1 % (0-2); EOSINOPHILS 1.2 % (0-7); HEMATOCRIT 27.2 % (36.0-48.0); HEMOGLOBIN 8.7 g/dL (12-16); IMMATURE GRANULOCYTES 0.3 % (0-5); LYMPHOCYTES 16.4 % (15-50); MCH 27.5 pg (26.0-34.0); MCV 86.1 fL (80.0-100.0); MEAN PLATELET VOLUME 10.1 fL (7.4-10.4); MONOCYTES 11.9 % (2-11); NEUTROPHILS 70.1 % (40-80); PLATELET COUNT 264 10x3/uL (130-400); RBC 3.16 10x6/uL (4.00-5.40); WBC 10.8 10x3/uL (4.8-10.8)
--- NOTE | 2018-12-11 07:20 | NUR ---
Attempted to move patient to chair, patient refused. Explained that Dr Tucker wants patient in chair when he arrives, patient laughed and stated "tell him I've been up all night". Patient returned to resting, will notify dayshift RN of situation.
--- NOTE | 2018-12-11 09:33 | NUR ---
PHYSICAL THERAPY HAS BEEN BY TO SEE PATIENT. WAS ASSISTED UP TO BEDSIDE COMMODE AND THEN TO CHAIR AT BEDSIDE. MORNING MEDICATIONS HAVE BEEN GIVEN. PT NOW QUIELTY WATCHING TELEVISION AND ON CELL PHONE. CALL LIGHT IN REACH.
--- NOTE | 2018-12-11 09:53 | NUR ---
PT EDUCATED ON ELEVATING LOWER EXT. KEEPS HAVING FEET TO FLOOR.
--- NOTE | 2018-12-11 12:45 | NUR ---
DR WHITEHEAD HAS BEEN BY TO SEE PATIENT. DISCUSSED KEEPING LEG ELEVATED WITH PATIENT. NEW ORDERS
--- NOTE | 2018-12-11 15:00 | NUR ---
ILIANA RIGHT THIGH REMOVED. SITE COVERED WITH IODINE OINTMENT AND GAUZE DRESSING.
--- NOTE | 2018-12-11 15:24 | NUR ---
BASIN WITH SOAP AND CLOTHS PROVIDED FOR PATIENT TO BATHE SELF.
--- NOTE | 2018-12-11 19:09 | NUR ---
BEDSIDE SHIFT REPORT GIVEN BY DEPARTING RN. PT LAYING IN BED WITH RT FOOT HANGING OFF THE BED. REINFORCED EDUCATION ON DR ORDERS TO KEEP FOOT ELEVATED. VERBALIZES UNDERSTANDING. RT FOOT PROPPED UP AND ELEVATED ON TWO PILLOWS. ALICIA BANDAGE REMOVED PER MD ORDER. AAOX4. PERRLA. C/O INCISIONAL PAIN 03/19. FEATHEREDGE MACHINE OPERATOR IN USE. VSS. DENIES ANY NEEDS AT THIS TIME. LEFT SUBCLAVIAN CVL PATENT AND INFUSING MD ORDERED MEDS. RT LEG SWOLLEN AND RED. PULSE DOPPLERED. ASSESSMENT COMPLETE. SEE FLOWSHEET FOR DETAILS.
--- NOTE | 2018-12-11 21:20 | NUR ---
HS MEDS GIVEN WITHOUT DIFFICULTY. OOB TO BSC WITH TWO RN ASSISTANCE. VERY UNSTEADY GETTING OOB. WALKER NEEDED TO HELP PT STAND. ONE VOID NOTED.
--- NOTE | 2018-12-11 23:46 | NUR ---
REASSESSMENT COMPLETE. NO CHANGES NOTED IN PT CONDITION. AWAKE AND WATCHING TV SHOWING NO SS OF DISTRESS. VSS. DENIES ANY NEEDS AT THIS TIME. RT FOOT REMAINS ELEVATED.
[2018-12-12] VITALS (18 sets, daily range): BP systolic 96–177; BP diastolic 43–72
--- NOTE | 2018-12-12 00:54 | NUR ---
USED CALL ZELAYA TO ALERT NURSE. CUP OF ICE REQUESTED. ACCOMMODATED. NO OTHER NEEDS EXPRESSED. SAFETY MEASURES IN PLACE. CBIR.
--- NOTE | 2018-12-12 02:14 | NUR ---
USED CALL LIGHT TO ALERT NURSE. BP CUFF SLIPPED OFF. REPLACED. PT SITTING WITH FEET DANGELING OFF SIDE OF BED. REINFORCED IMPORTANCE OF COMPLIANCE AND EDUCATION AGAIN PROVIDED ON THE IMPORTANCE OF BLOOD FLOW TO SURGICAL SITE. VERBALIZES UNDERSTANDING YET SAYS "MY LEG WAS HURTING, SO I LET MY FOOT HANG OFF THE BED TO GET BLOOD FLOW BACK TO MY FOOT". MORE EDUCATION PROVIDED.
--- NOTE | 2018-12-12 03:11 | NUR ---
REASSESSMENT COMPLETE. NO CHANGES NOTED IN PT CONDITION. VSS. NO SS OF DISTRESS. ;AYINGIN BED WITH RT LEG ELEVATED PER MD ORDERS. SAFETY MEASURES IN PLACE. CBIR.
--- NOTE | 2018-12-12 08:28 | NUR ---
PT UP TO BEDSIDE COMMODE. PROVIDED WITH SOAP AND WATER BASIN TO BATHE SELF.
--- NOTE | 2018-12-12 10:14 | NUR ---
Nutrition Follow Up: Chart reviewed Diet: ADA PO Intake: 100% meal avg BM: 12/11/18 I>O Wt stable Labs reviewed - Glucose elevated Meds noted including Levemir, Humulin Rec continue current diet. RD following.
--- NOTE | 2018-12-12 16:11 | NUR ---
Rehab Prescreening Consult recieved and the chart has been reviewed. She has a qualifying ARU diagnosis per medicare guidelines. She is still complaining of an 8/10 pain level while on a Morphine TEMPLATE CUTTER. Rehab will follow, as would like to see her on PO pain medication if at all possible. Thank You for the referral. Loida Fontaine RN Clinical Liaison, Rehab
[2018-12-13] VITALS (24 sets, daily range): BP systolic 94–134; BP diastolic 41–98
--- NOTE | 2018-12-13 00:57 | NUR ---
1900 REPORT RECEIVED CARE ASSUMED ASSESSMENT DONE SEE FLOW SHEET VSS. 2100 MEDS GIVEN PER AUG. VSS WILL CONTINUE TO MONITOR. 230 REASSESSMENT DONE SEE FLOW SHEET VSS. 0057 PT AMBULATED TO BEDSIDE COMMODE MODERATE ASSISTANCE PROVIDED WILL CONTINUE TO MONITOR.
--- NOTE | 2018-12-13 01:14 | NUR ---
PT ASKED FOR BAG OF CHIPS FAMILY BROUGHT. PT ON DM DIET CHIPS NOT APART OF DM DIET. PT ASKED TO SPEAK TO MOTION PICTURE PROJECTIONIST APPRENTICE.
--- NOTE | 2018-12-13 03:02 | NUR ---
0200 SUPERINTENDENT COMMISSARY AT BEDSIDE. PT STATES SHE NEEDS CHIPS TO CALM STOMACH. DIET L[place]ON [place] PROVIDED. TEACHING PROVIDED. 0300 REASSESSMENT DONE SEE FLOW SHEET VSS.
--- NOTE | 2018-12-13 05:00 | NUR ---
DAILY WEIGHT COLLECTED IO COLLECTED. VSS. PT REFUSED CHG BATH STATES SHE WILL WAIT UNTIL THE DAY TIME.
[2018-12-13 05:44] LABS: BASOPHILS 0.3 % (0-2); EOSINOPHILS 1.2 % (0-7); HEMATOCRIT 25.3 % (36.0-48.0); HEMOGLOBIN 8.1 g/dL (12-16); IMMATURE GRANULOCYTES 0.4 % (0-5); LYMPHOCYTES 20.1 % (15-50); MCH 27.4 pg (26.0-34.0); MCV 85.5 fL (80.0-100.0); MEAN PLATELET VOLUME 9.2 fL (7.4-10.4); MONOCYTES 9.9 % (2-11); NEUTROPHILS 68.1 % (40-80); PLATELET COUNT 285 10x3/uL (130-400); RBC 2.96 10x6/uL (4.00-5.40); RDW 13.6 % (11.5-14.5)
[2018-12-13 05:48] LABS: WBC 7.8 10x3/uL (4.8-10.8)
[2018-12-13 05:57] LABS: CALCIUM 8.2 mg/dL (8.5-10.1); CARBON DIOXIDE 25.4 mmol/L (21.0-32.0); CHLORIDE - SERUM 103 mmol/L (98-107); GLUCOSE 110 mg/dL (74-106); SODIUM 137 mmol/L (136-145)
[2018-12-13 05:59] LABS: CALC OSMOLALITY 273 mosm/kg (275-300); CREATININE - SERUM 0.4 mg/dL (0.6-1.3); POTASSIUM - SERUM 4.7 mmol/L (3.5-5.1); UREA NITROGEN 11 mg/dL (7-18); eGFR NON AFRICAN AMERICAN > 90 mL/min (90-120)
--- NOTE | 2018-12-13 13:54 | NUR ---
1330: DRESSING REMOVED FROM R LEG. GROUND NUCLEAR WEAPONS ASSEMBLY OFFICER MORPHINE DC'D
--- NOTE | 2018-12-13 14:35 | NUR ---
PRBCs HANGED TO INFUSE @ 150CC/HR. SEE TRANSFUSION RECORD FOR VS.
--- NOTE | 2018-12-13 21:00 | NUR ---
1900 REPORT RECEIVED CARE ASSUMED ASSESSMENT DONE SEE FLOW SHEET VSS. 2100 MEDS GIVEN PER AUG. COMPLETE BED BATH GIVEN CHG BATH. COMPLETE LINEN CHANGE. VSS. DM TEACHING PROVIDED. WOUND CLEANED WITH BETADINE SWABS.
[2018-12-14] VITALS (22 sets, daily range): BP systolic 106–160; BP diastolic 46–76
--- NOTE | 2018-12-14 00:56 | NUR ---
2300 REASSESSMENT DONE SEE FLOW SHEET. VSS. 0056 PT RESTING IN BED COMFORTABLY VSS NO SIGNS OF ACUTE DISTRESS NOTED WILL CONTINUE TO MONITOR.
--- NOTE | 2018-12-14 02:56 | NUR ---
REASSESSMENT COMPLETE SEE FLOW SHEET VSS. MED GIVEN PER MAR VSS WILL CONTINUE TO MONITOR.
[2018-12-14 06:08] LABS: BASOPHILS 0.4 % (0-2); EOSINOPHILS 1.8 % (0-7); HEMATOCRIT 27.2 % (36.0-48.0); HEMOGLOBIN 9.1 g/dL (12-16); IMMATURE GRANULOCYTES 0.4 % (0-5); LYMPHOCYTES 24.4 % (15-50); MCH 28.3 pg (26.0-34.0); MCHC 33.5 g/dL (31.0-37.0); MCV 84.7 fL (80.0-100.0); MEAN PLATELET VOLUME 9.3 fL (7.4-10.4); MONOCYTES 14.2 % (2-11); NEUTROPHILS 58.8 % (40-80); PLATELET COUNT 273 10x3/uL (130-400); RBC 3.21 10x6/uL (4.00-5.40); RDW 13.6 % (11.5-14.5)
[2018-12-14 06:09] LABS: WBC 5.1 10x3/uL (4.8-10.8)
[2018-12-14 06:23] LABS: CALCIUM 8.4 mg/dL (8.5-10.1); CHLORIDE - SERUM 105 mmol/L (98-107); GLUCOSE 104 mg/dL (74-106); SODIUM 138 mmol/L (136-145)
[2018-12-14 06:27] LABS: CALC OSMOLALITY 273 mosm/kg (275-300); CREATININE - SERUM 0.6 mg/dL (0.6-1.3); UREA NITROGEN 8 mg/dL (7-18); eGFR NON AFRICAN AMERICAN > 90 mL/min (90-120)
--- NOTE | 2018-12-14 19:42 | NUR ---
PT RECEIVED WITH EYES OPEN WATCHING TV. COMPLAINS OF PAIN TO RIGHT LEG WITH PRN NORCO GIVEN PER MAR. VSS. NO VISIBLE S/S OF DISTRESS. ASSESSMENT COMPLETED SEE FLOW SHEET. PT ON PHONE BEFORE LEAVING ROOM. NO OTHER NEEDS OR CONCERNS MADE KNOWN. CALL LIGHT IN REACH. WILL CONTINUE TO OBSERVE.
--- NOTE | 2018-12-14 21:38 | NUR ---
RECEIVED MEDICATIONS PER MAR, TOLERATED WELL. NO OTHER NEEDS MADE KNOWN. CALL LIGHT IN REACH. WILL CONTINUE TO OBSERVE.
--- NOTE | 2018-12-14 21:58 | NUR ---
2034 PT ASSISTED TO BEDSIDE COMMODE WITH MIN LYNN PROVIDED. STOOL NOTED AND COLLECTED AND SENT TO LAB FOR BLOOD OCCULT. WILL CONTINUE TO OBSERVE.
--- NOTE | 2018-12-14 22:08 | NUR ---
PT ASSISTED TO BEDSIDE COMMODE, WITH MIN ASSIST WITH TRANSFER TO COMMODE AND BACK TO BED. PT ABLE TO PROVIDE OWN PERICARE. URINE ONLY NOTED. WILL CONTINUE TO OBSERVE.
--- NOTE | 2018-12-14 23:03 | NUR ---
REASSESSMENT COMPLETED, SEE FLOW SHEET. NO NEEDS MADE KNOWN. WILL CONTINUE TO OBSERVE.
[2018-12-15] VITALS (16 sets, daily range): BP systolic 119–156; BP diastolic 44–81
--- NOTE | 2018-12-15 00:15 | NUR ---
PT TRANSFERS SELF TO BEDSIDE COMMODE, URINE ONLY NOTED. PROVIDED SELF PERICARE. WILL CONTINUE TO OBSERVE.
--- NOTE | 2018-12-15 01:21 | NUR ---
PT WITH EYES OPEN, VSS. COMPLAINS OF RIGHT LEG PAIN, PRN PAIN MEDICATIONS GIVEN PER MAR. CALL LIGHT IN REACH. WILL CONTINUE TO OBSERVE
--- NOTE | 2018-12-15 04:01 | NUR ---
REASSESSMENT COMPLETED, SEE FLOW SHEET. NO S/S OF DISTRESS. WILL CONTINUE TO OBSERVE. CALL LIGHT IN REACH.
[2018-12-15 05:55] LABS: BASOPHILS 0.2 % (0-2); EOSINOPHILS 1.4 % (0-7); HEMATOCRIT 27.3 % (36.0-48.0); HEMOGLOBIN 8.9 g/dL (12-16); IMMATURE GRANULOCYTES 0.3 % (0-5); LYMPHOCYTES 31.5 % (15-50); MCH 27.8 pg (26.0-34.0); MCHC 32.6 g/dL (31.0-37.0); MCV 85.3 fL (80.0-100.0); MONOCYTES 8.9 % (2-11); NEUTROPHILS 57.7 % (40-80); PLATELET COUNT 320 10x3/uL (130-400); RDW 13.5 % (11.5-14.5); WBC 5.7 10x3/uL (4.8-10.8)
[2018-12-15 06:20] LABS: CALC OSMOLALITY 275 mosm/kg (275-300); CALCIUM 8.4 mg/dL (8.5-10.1); CARBON DIOXIDE 27.7 mmol/L (21.0-32.0); CHLORIDE - SERUM 108 mmol/L (98-107); CREATININE - SERUM 0.5 mg/dL (0.6-1.3); GLUCOSE 87 mg/dL (74-106); POTASSIUM - SERUM 3.8 mmol/L (3.5-5.1); SODIUM 140 mmol/L (136-145); UREA NITROGEN 6 mg/dL (7-18); eGFR NON AFRICAN AMERICAN > 90 mL/min (90-120)
--- NOTE | 2018-12-15 06:25 | NUR ---
PT REFUSED BATH AT THIS TIME. SAYS SHE WILL TAKE LATER.
--- NOTE | 2018-12-15 08:03 | NUR ---
REPORT RECEIVED. SHIFT ASSESSMENT COMPLETE. PT WAS LAYING IN BED. PT NOW UP TO CHAIR USING WALKER WITH STANDBY ASSIST. BREAKFAST TRAY PROVIDED. PT HAS LOWER EXT ELEVATED AND PROPPED UP WITH PILLOW.
--- NOTE | 2018-12-15 08:33 | NUR ---
Nutrition follow-up: Diet: ADA consistent CHO PO intake 100% of most meals Labs reviewed; glucose under better control Wt: 260# +BM RDN following.
--- NOTE | 2018-12-15 09:31 | NUR ---
PT UP WALKING WITH PHYSICAL THERAPY AT THIS TIME.
--- NOTE | 2018-12-15 10:21 | NUR ---
PT PROVIDED WITH WATER BASIN AND BATH PRODUCT. SELF BATHED. NEW GOWN AND LINENS
--- NOTE | 2018-12-15 11:41 | MORECARE ---
CASE MANAGEMENT DISCHARGE SUMMARY PATIENT: DEEPTHI HARDY UNIT: [id number] ADM DATE: 11/29/18 AGE: 43 : 77 SEX: F [facility] AUTHOR: SUZIEDOC PHYSICIAN: REFERRING PHYSICIAN: JOO CLAYTON MD DATE OF SERVICE: 12/15/18 Discharge Plan Patient Name: DEEPTHI HARDY Facility: [facility]:[place] : 1975 Planned Disposition: Home Anticipated Discharge Date: Discharge Date: Expected LOS: Initial Reviewer: [id number] Initial Review Date: 12/03/2018 Generated: 12/15/18 12:41 pm Comments DCP- Discharge Planning Updated by [email or web address]: Oneyda Werner on 12/15/18 10:[address] Patient Name: DEEPTHI HARDY Admission Status: ER Accout number: [id number] Admission Date: 11-29-2018 : 1975 Admission Diagnosis:ATHSCL [place] ARTERIES OF EXTREMITIES W REST PAIN, RIGH Attending: JOO CLAYTON Current LOS: 16 Anticipated DC Date: Planned Disposition: Home Primary Insurance: MEDICARE A & B Discharge Planning Comments: CM SPOKE WITH PATIENT AND SHE DOES WANTS [facility] NOTIFIED. CM TO FOLLOW AND ASSIST. Powerhouse Laborer: Oneyda Werner DCP- Discharge Planning Updated by [id number]: Mike James on 12/03/18 2:[address] Patient Name: DEEPTHI HARDY Admission Status: ER Accout number: [id number] Admission Date: 11-29-2018 : 1975 Admission Diagnosis:ATHSCL [place] ARTERIES OF EXTREMITIES W REST PAIN, RIGH Attending: JOO CLAYTON Current LOS: 4 Anticipated DC Date: Planned Disposition: Home Primary Insurance: MEDICARE A & B Discharge Planning Comments: CM MET WITH PT IN ROOM TO DISCUSS DISCHARGE PLANNING AND NEEDS. PT REPORTS LIVING AT HOME INDEPENDENTLY WITH HER MOM, STEP DAD AND BROTHER. PT HAS NO MEDICAL EQUIPMENT AND NO OUTSIDE SERVICES ASSISTING IN THE HOME. CM DISCUSSED AVAILABILITY OF HOME HEALTH, REHAB SERVICES AND MEDICAL EQUIPMENT. PT DENIES DISCHARGE NEEDS, REPORTS HER MOM WILL PICK HER UP FOR DISCHARGE HOME. IMPORTANT MESSAGE FROM MEDICARE PROVIDED AND EXPLAINED. PT PLANS TO DISCHARGE HOME WITH FAMILY, HAS NO ANTICIPATED DISCHARGE NEEDS AT THIS TIME. FAMILY TO FUEL CELL BATTERY TECHNICIAN FOR TRANSPORT HOME. CM TO FOLLOW AND ASSIST IF NEEDED. Powerhouse Laborer: Mike Jamse DCPIA - Discharge Planning Initial Assessment Updated by [id number]: Mike James on 12/03/18 3:58 pm * Is the patient Alert and Oriented? Yes * How many steps to enter\exit or inside your home? * PCP DR. MONGE, [facility] [place] * [facility]acy [facility] * Preadmission Environment Home with Family * ADLs Independent * Equipment None * Other Equipment NO MEDICAL EQUIPMENT PROVIDER PREFERENCE * List name and contact numbers for known caregivers / representatives who currently or will assist patient after discharge: MILAGRO HARDY, MOTHER, * Verbal permission to speak to the caregivers and representatives has been obtained from the patient. N/A * Community resources currently utilized None * Please name any agencies selected above. NONE * Additional services required to return to the preadmission environment? No * Can the patient safely return to the preadmission environment? Yes * Has this patient been hospitalized within the prior 30 days at any hospital? No Coverage Notice Reviewer: [id number] - Mike James Notice Issued Date-Time: 12/03/2018 9:50 Notice Type: IM Discharge Notice Notice Delivered To: Patient Relationship to Patient: Paste Worker Name: Delivery Method: HAND - Hand Delivered Aida Days: Prior Verbal Notification: Recipient Understood Notice: Yes Recipient Signature: Yes Med Rec Note Co-signed by Attending: Coverage Notice Comment: Reviewer: [email or web address] Olayinka Werner Notice Issued Date-Time: 12/15/2018 11:34 Notice Type: IM Discharge Notice Notice Delivered To: Patient Relationship to Patient: Self Paste Worker Name: Delivery Method: HAND - Hand Delivered Aida Days: Prior Verbal Notification: Recipient Understood Notice: Yes Recipient Signature: Yes Med Rec Note Co-signed by Attending: Coverage Notice Comment: Last DP export: 12/03/18 2:59 p Patient Name: DEEPTHI HARDY Page [id number] at 1141 All edits/amendments must be made on the electronic document DICTATION DATE: 12/15/18 1140 TAX AUDITOR: ANTHONY 12/15/18 1140 RPT#: [id number] DC DATE: STATUS: ADM IN [facility] [address] [facility] [place] [address] END OF REPORT
--- NOTE | 2018-12-15 15:05 | MORECARE ---
CASE MANAGEMENT DISCHARGE SUMMARY PATIENT: DEEPTHI HARDY UNIT: [id number] ADM DATE: 11/29/18 AGE: 43 : [birth year] SEX: F ROOM/BED: [facility] AUTHOR: SUZIE,DOC PHYSICIAN: REFERRING PHYSICIAN: JOO CLAYTON MD DATE OF SERVICE: 12/15/18 Discharge Plan Patient Name: DEEPTHI HARDY Facility: [facility]:[place] : 1975 Planned Disposition: Inpatient Rehab Anticipated Discharge Date: Discharge Date: Expected LOS: Initial Reviewer: [email or web address] Initial Review Date: 12/03/2018 Generated: 12/15/18 4:05 pm Comments DCP- Discharge Planning Updated by [id number]: Oneyda Werner on 12/15/18 10:[address] Patient Name: DEEPTHI HARDY Admission Status: ER Accout number: [id number] Admission Date: 11-29-2018 : 1975 Admission Diagnosis:ATHSCL [place] ARTERIES OF EXTREMITIES W REST PAIN, RIGH Attending: JOO CLAYTON Current LOS: 16 Anticipated DC Date: Planned Disposition: Home Primary Insurance: MEDICARE A & B Discharge Planning Comments: CM SPOKE WITH PATIENT AND SHE DOES WANTS [facility] NOTIFIED. CM TO FOLLOW AND ASSIST. Project Reservoir Engineer: Oneyda Werner DCP- Discharge Planning Updated by [id number]: Mike James on 12/03/18 2:[address] Patient Name: DEEPTHI HARDY Admission Status: ER Accout number: [id number] Admission Date: 11-29-2018 : 1975 Admission Diagnosis:ATHSCL [place] ARTERIES OF EXTREMITIES W REST PAIN, RIGH Attending: JOO CLAYTON Current LOS: 4 Anticipated DC Date: Planned Disposition: Home Primary Insurance: MEDICARE A & B Discharge Planning Comments: CM MET WITH PT IN ROOM TO DISCUSS DISCHARGE PLANNING AND NEEDS. PT REPORTS LIVING AT HOME INDEPENDENTLY WITH HER MOM, STEP DAD AND BROTHER. PT HAS NO MEDICAL EQUIPMENT AND NO OUTSIDE SERVICES ASSISTING IN THE HOME. CM DISCUSSED AVAILABILITY OF HOME HEALTH, REHAB SERVICES AND MEDICAL EQUIPMENT. PT DENIES DISCHARGE NEEDS, REPORTS HER MOM WILL PICK HER UP FOR DISCHARGE HOME. IMPORTANT MESSAGE FROM MEDICARE PROVIDED AND EXPLAINED. PT PLANS TO DISCHARGE HOME WITH FAMILY, HAS NO ANTICIPATED DISCHARGE NEEDS AT THIS TIME. FAMILY TO RESEARCH PROGRAM INTERN FOR TRANSPORT HOME. CM TO FOLLOW AND ASSIST IF NEEDED. Project Reservoir Engineer: Mike James DCPIA - Discharge Planning Initial Assessment Updated by [id number]: Mike James on 12/03/18 3:58 pm * Is the patient Alert and Oriented? Yes * How many steps to enter\exit or inside your home? * PCP DR. MONGE, [facility] [place] * [facility] * Preadmission Environment Home with Family * ADLs Independent * Equipment None * Other Equipment NO MEDICAL EQUIPMENT PROVIDER PREFERENCE * List name and contact numbers for known caregivers / representatives who currently or will assist patient after discharge: MILAGRO HARDY, MOTHER, * Verbal permission to speak to the caregivers and representatives has been obtained from the patient. N/A * Community resources currently utilized None * Please name any agencies selected above. NONE * Additional services required to return to the preadmission environment? No * Can the patient safely return to the preadmission environment? Yes * Has this patient been hospitalized within the prior 30 days at any hospital? No Coverage Notice Reviewer: [id number] - Mike James Notice Issued Date-Time: 12/03/2018 9:50 Notice Type: IM Discharge Notice Notice Delivered To: Patient Relationship to Patient: Purse Seining Hand Name: Delivery Method: HAND - Hand Delivered Aida Days: Prior Verbal Notification: Recipient Understood Notice: Yes Recipient Signature: Yes Med Rec Note Co-signed by Attending: Coverage Notice Comment: Reviewer: [email or web address] Olayinka Werner Notice Issued Date-Time: 12/15/2018 11:34 Notice Type: IM Discharge Notice Notice Delivered To: Patient Relationship to Patient: Self Purse Seining Hand Name: Delivery Method: HAND - Hand Delivered Aida Days: Prior Verbal Notification: Recipient Understood Notice: Yes Recipient Signature: Yes Med Rec Note Co-signed by Attending: Coverage Notice Comment: Last DP export: 12/15/18 10:41 am Patient Name: DEEPTHI HARDY Page [id number] Electronically Signed by [facility] [place] on 12/15/18 at 1505 All edits/amendments must be made on the electronic document DICTATION DATE: 12/15/18 1505 PLAYGROUND AIDE: ANTHONY 12/15/18 1505 RPT#: [id number] DC DATE: STATUS: ADM IN [facility] [address] [place] [address] END OF REPORT
--- NOTE | 2018-12-15 15:56 | NUR ---
PT TRANSFERRED SELF FROM CHAIR TO BEDSIDE COMMODE WITH NO ASSIST FOR TOILETING.
--- NOTE | 2018-12-15 17:08 | NUR ---
PT PROVIDED WITH DINNER TRAY. NO INSULIN NEEDED PER SLIDING SCALE. PT HAS BEEN ACCEPTED TO INPATIENT REHAB. WILL BE GOING TO ROOM 1114B.
--- NOTE | 2018-12-15 17:28 | NUR ---
SPOKE WITH DR ORTEGA. RECEIVED ORDER FOR DISCHARGE TO REHAB.
[2018-12-15] MEDS ORDERED: LOPRESSOR25 MG PO (17:30)
[2018-12-15] MEDS ORDERED: BAYER CHEWABLE81 MG PO (17:31)
[2018-12-15] MEDS ORDERED: TYLENOL ARTHRI650 MG PO (17:32)
[2018-12-15] MEDS ORDERED: HYDROCODON-ACE1 EAC7 PO (17:34)
[2018-12-15] MEDS ORDERED: COLACE100 MG PO (17:35)
[2018-12-15] MEDS ORDERED: PROTONIX40 MG PO (17:35)
[2018-12-15] MEDS ORDERED: HUMULIN R100 U/ML SC (17:36)
[2018-12-15] MEDS ORDERED: TRIPLE ANTIBI28.4 GM TP (17:37)
[2018-12-15] MEDS ORDERED: LOVENOX40 MG/0.4 SC (17:39)
--- NOTE | 2018-12-15 18:17 | NUR ---
REPORT CALLED TO ARIEL IN REHAB
--- NOTE | 2018-12-15 18:30 | NUR ---
CENTRAL LINE LEFT SUBCLAVIAN REMOVED, TIP INTACT. NO BLEEDING. SITE COVERED WITH GAUZE AND TEGADERM DRESSING.
--- NOTE | 2018-12-16 11:29 | MORECARE ---
CASE MANAGEMENT DISCHARGE SUMMARY PATIENT: DEEPTHI HARDY UNIT: [id number] ADM DATE: 11/29/18 AGE: 43 : 77 SEX: F ROOM/BED: [facility] AUTHOR: SUZIEDOC PHYSICIAN: REFERRING PHYSICIAN: JOO CLAYTON MD DATE OF SERVICE: 12/16/18 Discharge Plan Patient Name: DEEPTHI HARDY Facility: [facility]:[place] : 1975 Planned Disposition: Inpatient Rehab Anticipated Discharge Date: 12/15/18 Discharge Date: 12/15/2018 Expected LOS: 16 Initial Reviewer: [email or web address] Initial Review Date: 12/03/2018 Generated: 12/16/18 12:29 pm Comments DCP- Discharge Planning Updated by [id number]: Oneyda Werner on 12/15/18 10:[address] Patient Name: DEEPTHI HARDY Admission Status: ER Accout number: [id number] Admission Date: 11-29-2018 : 1975 Admission Diagnosis:ATHSCL [place] ARTERIES OF EXTREMITIES W REST PAIN, RIGH Attending: JOO CLAYTON Current LOS: 16 Anticipated DC Date: Planned Disposition: Home Primary Insurance: MEDICARE A & B Discharge Planning Comments: CM SPOKE WITH PATIENT AND SHE DOES WANTS [facility]Y NOTIFIED. CM TO FOLLOW AND ASSIST. Professor Of Exercise Science: Oneyda Werner DCP- Discharge Planning Updated by [id number]: Mike James on 12/03/18 2:[address] Patient Name: DEEPTHI HARDY Admission Status: ER Accout number: [id number] Admission Date: 11-29-2018 : 1975 Admission Diagnosis:ATHSCL [place] ARTERIES OF EXTREMITIES W REST PAIN, RIGH Attending: JOO CLAYTON Current LOS: 4 Anticipated DC Date: Planned Disposition: Home Primary Insurance: MEDICARE A & B Discharge Planning Comments: CM MET WITH PT IN ROOM TO DISCUSS DISCHARGE PLANNING AND NEEDS. PT REPORTS LIVING AT HOME INDEPENDENTLY WITH HER MOM, STEP DAD AND BROTHER. PT HAS NO MEDICAL EQUIPMENT AND NO OUTSIDE SERVICES ASSISTING IN THE HOME. CM DISCUSSED AVAILABILITY OF HOME HEALTH, REHAB SERVICES AND MEDICAL EQUIPMENT. PT DENIES DISCHARGE NEEDS, REPORTS HER MOM WILL PICK HER UP FOR DISCHARGE HOME. IMPORTANT MESSAGE FROM MEDICARE PROVIDED AND EXPLAINED. PT PLANS TO DISCHARGE HOME WITH FAMILY, HAS NO ANTICIPATED DISCHARGE NEEDS AT THIS TIME. FAMILY TO MARKETING CLERK FOR TRANSPORT HOME. CM TO FOLLOW AND ASSIST IF NEEDED. Professor Of Exercise Science: Mike Santamariawell DCPIA - Discharge Planning Initial Assessment Updated by [id number]: Mike James on 12/03/18 3:58 pm * Is the patient Alert and Oriented? Yes * How many steps to enter\exit or inside your home? * PCP DR. MONGE, [facility] [place] * [facility] * Preadmission Environment Home with Family * ADLs Independent * Equipment None * Other Equipment NO MEDICAL EQUIPMENT PROVIDER PREFERENCE * List name and contact numbers for known caregivers / representatives who currently or will assist patient after discharge: MILAGRO HARDY, MOTHER, * Verbal permission to speak to the caregivers and representatives has been obtained from the patient. N/A * Community resources currently utilized None * Please name any agencies selected above. NONE * Additional services required to return to the preadmission environment? No * Can the patient safely return to the preadmission environment? Yes * Has this patient been hospitalized within the prior 30 days at any hospital? No Coverage Notice Reviewer: [id number] - Mike James Notice Issued Date-Time: 12/03/2018 9:50 Notice Type: IM Discharge Notice Notice Delivered To: Patient Relationship to Patient: Incubator Operator Name: Delivery Method: HAND - Hand Delivered Aida Days: Prior Verbal Notification: Recipient Understood Notice: Yes Recipient Signature: Yes Med Rec Note Co-signed by Attending: Coverage Notice Comment: Reviewer: [id number] - Oneyda Werner Notice Issued Date-Time: 12/15/2018 11:34 Notice Type: IM Discharge Notice Notice Delivered To: Patient Relationship to Patient: Self Incubator Operator Name: Delivery Method: HAND - Hand Delivered Aida Days: Prior Verbal Notification: Recipient Understood Notice: Yes Recipient Signature: Yes Med Rec Note Co-signed by Attending: Coverage Notice Comment: Last DP export: 12/15/18 2:05 pm Patient Name: DEEPTHI HARDY Page [id number] at 1129 All edits/amendments must be made on the electronic document DICTATION DATE: 12/16/18 1128 MARINA MANAGER: ANTHONY 12/16/18 1128 RPT#: [id number] DC DATE:12/15/18 STATUS: [facility] [address] [facility] [facility] [place] [address] END OF REPORT
== END 2018-12-15 19:04 | DRG 252 ==
LOC: D.ER 21:53 → D.CVICU 23:28 → D.M2 23:28 → D.SDCHOLD 12-02 10:41 → D.M2 12-02 10:48 → D.SDCHOLD 12-08 09:48 → D.CVICU 12-08 10:58
PROVIDERS: Family Medicine; Internal Medicine Cardiovascular Disease; Thoracic Surgery (Cardiothoracic Vascular Surgery); ADMIT Internal Medicine Nephrology; ATTEND Internal Medicine Nephrology
PROC: B40F1ZZ Plain Radiography of Right Lower Extremity Arteries using Low Osmolar Contrast (ICD-10-PCS; 2018-12-02)
PROC: 041K09N Bypass Right Femoral Artery to Posterior Tibial Artery with Autologous Venous Tissue, Open Approach (ICD-10-PCS; principal; 2018-12-08 07:30)
DX: E11.51 Type 2 diabetes mellitus with diabetic peripheral angiopathy without gangrene (principal); A41.9 Sepsis, unspecified organism; Z68.42 Body mass index [BMI] 45.0-49.9, adult; E87.1 Hypo-osmolality and hyponatremia; N39.0 Urinary tract infection, site not specified; I70.221 Atherosclerosis of native arteries of extremities with rest pain, right leg; R20.2 Paresthesia of skin; J45.909 Unspecified asthma, uncomplicated; D11.9 Benign neoplasm of major salivary gland, unspecified; E66.01 Morbid (severe) obesity due to excess calories; Z91.14 Patient's other noncompliance with medication regimen

== ENCOUNTER 2018-12-15 16:42 | Inpatient (IN) | payer MEDICARE ==
[~2018-12-15] VITALS: Ht 160 cm; Wt 105.7 kg
[2018-12-15] MEDS ORDERED: LOPRESSOR25 MG PO (17:30)
[2018-12-15] MEDS ORDERED: BAYER CHEWABLE81 MG PO (17:31)
[2018-12-15] MEDS ORDERED: TYLENOL ARTHRI650 MG PO (17:32)
[2018-12-15] MEDS ORDERED: HYDROCODON-ACE1 EAC7 PO (17:34)
[2018-12-15] MEDS ORDERED: PROTONIX40 MG PO (17:35)
[2018-12-15] MEDS ORDERED: COLACE100 MG PO (17:35)
[2018-12-15] MEDS ORDERED: HUMULIN R100 U/ML SC (17:36)
[2018-12-15] MEDS ORDERED: TRIPLE ANTIBI28.4 GM TP (17:37)
[2018-12-15] MEDS ORDERED: LOVENOX40 MG/0.4 SC (17:39)
[2018-12-15 20:06] VITALS: BP 138/75; BMI 41.3
[2018-12-15 20:22] VITALS: BP 138/75
--- NOTE | 2018-12-15 21:57 | NUR ---
THE PATIENT IS ADMITTED TO 1114B. BED IS IN THE LOW POSITION WITH SIDERAILS X2 AND CALL LIGHT WITHIN REACH. THE PATIENT WAS EDUCATED ON THE USE OF A CALL LIGHT AND THE NEED TO CALL FOR ASSISTANCE WHENEVER SHE WANTS TO GET OUT OF BED. THE PATIENT DEMONSTRATES UNDERSTANDING VIA TEACHBACK METHOD. THE PATIENT APPEARS COMFORTABLE WITH NO QUESTIONS OR COCNERNS AT THIS TIME.
[2018-12-16 08:00] VITALS: BP 147/66
[2018-12-16 08:39] VITALS: Ht 160 cm; Wt 105.7 kg
[2018-12-16 11:36] LABS: BASOPHILS 0.2 % (0-2); EOSINOPHILS 0.9 % (0-7); HEMATOCRIT 31.8 % (36.0-48.0); HEMOGLOBIN 10.3 g/dL (12-16); IMMATURE GRANULOCYTES 0.2 % (0-5); LYMPHOCYTES 22.4 % (15-50); MCH 27.8 pg (26.0-34.0); MCHC 32.4 g/dL (31.0-37.0); MCV 85.9 fL (80.0-100.0); MEAN PLATELET VOLUME 9.2 fL (7.4-10.4); MONOCYTES 6.3 % (2-11); RDW 13.8 % (11.5-14.5)
[2018-12-16 11:37] LABS: PLATELET COUNT 449 10x3/uL (130-400); WBC 8.5 10x3/uL (4.8-10.8)
[2018-12-16 11:46] LABS: CALCIUM 8.4 mg/dL (8.5-10.1); CARBON DIOXIDE 28.3 mmol/L (21.0-32.0); CHLORIDE - SERUM 105 mmol/L (98-107); CREATININE - SERUM 0.6 mg/dL (0.6-1.3); SODIUM 140 mmol/L (136-145); eGFR NON AFRICAN AMERICAN > 90 mL/min (90-120)
[2018-12-16 11:47] LABS: CALC OSMOLALITY 281 mosm/kg (275-300); GLUCOSE 174 mg/dL (74-106); POTASSIUM - SERUM 4.4 mmol/L (3.5-5.1); UREA NITROGEN 9 mg/dL (7-18)
--- NOTE | 2018-12-16 20:00 | NUR ---
PATIENT RECEIVED LAYING IN BED. ASSESSMENT & VITAL SIGNS DONE. NO C/O PAIN OR DISTRESS. BED LOW. CALL LIGHT & BEDSIDE TABLE WITHIN REACH. WILL CONTINUE TO MONITOR.
[2018-12-16 20:02] VITALS: BP 132/71
--- NOTE | 2018-12-17 02:40 | NUR ---
PATIENT USED CALL LIGHT FOR PAIN MEDICATION. PAIN MEDICATION GIVEN PER ORDER. PAIN LEVEL 10. CALL LIGHT WITHIN REACH. WILL CONTINUE TO MONITOR.
--- NOTE | 2018-12-17 04:29 | NUR ---
PATIENT EYES CLOSED. RESPIRATIONS 18 & EVEN. BED LOW. CALL LIGHT WITHIN REACH. WILL CONTINE TO MONITOR.
[2018-12-17 08:02] VITALS: BP 132/71
[2018-12-17 08:20] LABS: BASOPHILS 0.2 % (0-2); EOSINOPHILS 1.6 % (0-7); HEMATOCRIT 30.5 % (36.0-48.0); HEMOGLOBIN 9.9 g/dL (12-16); IMMATURE GRANULOCYTES 0.2 % (0-5); LYMPHOCYTES 30.1 % (15-50); MCHC 32.5 g/dL (31.0-37.0); MCV 86.2 fL (80.0-100.0); MONOCYTES 7.6 % (2-11); NEUTROPHILS 60.3 % (40-80); PLATELET COUNT 440 10x3/uL (130-400); RBC 3.54 10x6/uL (4.00-5.40); RDW 13.8 % (11.5-14.5); WBC 8.4 10x3/uL (4.8-10.8)
[2018-12-17 08:23] LABS: CALCIUM 8.2 mg/dL (8.5-10.1); CARBON DIOXIDE 26.1 mmol/L (21.0-32.0); CHLORIDE - SERUM 106 mmol/L (98-107); CREATININE - SERUM 0.6 mg/dL (0.6-1.3); POTASSIUM - SERUM 3.8 mmol/L (3.5-5.1); SODIUM 139 mmol/L (136-145); eGFR NON AFRICAN AMERICAN > 90 mL/min (90-120)
[2018-12-17 08:25] LABS: CALC OSMOLALITY 275 mosm/kg (275-300); UREA NITROGEN 12 mg/dL (7-18)
[2018-12-17 08:26] LABS: GLUCOSE 69 mg/dL (74-106)
--- NOTE | 2018-12-17 12:09 | RHP ---
PATIENT: DEEPTHI HARDY MEDICAL RECORD: [id number] ACCOUNT: [id number] LOCATION:[id number] : 77 ADMISSION DATE: 12/15/18 REHABILITATION HISTORY AND PHYSICAL EXAMINATION POST ADMISSION PHYSICIAN EXAMINATION DATE OF ADMISSION: 12/15/2018. ADMITTING DIAGNOSIS: Disuse myopathy. HISTORY OF PRESENT ILLNESS: The patient is a 43-year-old female patient who is morbidly obese, presented to the ED with complaints of right leg pain from her knee down and numbness and tingling. She states that she has [id number]-[id number] pain to her right foot. She has a history of peripheral vascular disease. She has had angioplasty in the past and has been awaiting a femoral bypass surgery per Dr. Caputo at [facility], which she has not yet seen. She presented secondary to pain, which was worse than usual and it felt cooler than usual. In the Emergency Room, an arterial Doppler showed marked occlusion of her calf distally. She was admitted to the acute hospital for further workup and possible intervention. 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 She has had cardiology and interventional radiology and cardiovascular surgery along with respiratory therapy and physical therapy involved with her care during her stay. She has had an acute workup completed, underwent a salvage right in situ femoral distal posterior tibial arterial bypass for rest pain per Dr. Tucker on 12/08/2018 due to total occlusion of the right superficial femoral artery and popliteal artery. She is currently on telemetry, monitoring her blood sugars closely, monitoring blood flow with recent revascularization, and monitoring for any signs of bleeding and acute blood loss anemia. She has received a blood transfusion during her stay. We are also monitoring for any signs of infection with the surgical incision, monitoring her urinary output and she does have a gait disturbance, impaired mobility, proximal weakness, fall risk and self-care deficits. These are all barriers to her discharge home at this time. She lives with her mom, jenny, and brother. She was independent with her mobility and ADLs, but has had a decline recently secondary to increased pain and dry gangrene. She has been progressing with therapy during her acute hospitalization. She plans to return home at her prior level of functioning or better with home health set up after her stay here. COMORBIDITIES: In this patient include severe peripheral vascular disease, low sodium, asthma, medical noncompliance, morbid obesity, diabetes, peripheral vascular disease, elevated blood sugars, elevated temperature, UTI, leukocytosis, acute blood loss anemia. PAST MEDICAL HISTORY: Significant for diabetes, stents in her leg, depression and anxiety. PAST SURGICAL HISTORY: Includes and peripheral arterial disease. ALLERGIES: No known drug allergies. CURRENT MEDICATIONS: Include nystatin powder b.i.d. She is on Levemir 45 units q.h.s. She is on atorvastatin 40 mg q.h.s. She is on Neosporin b.i.d., Lopressor 12.5 mg b.i.d., Levemir 56 units q.a.m. She is on Neurontin 300 mg b.i.d., enoxaparin 40 mg daily, Colace 100 mg b.i.d., Plavix 75 mg daily, HISTORY AND PHYSICAL [id number] DEEPTHI HARDY Vonda aspirin 81 mg daily, albuterol updrafts p.r.n. She is on intermediate sliding scale with Humulin. She is on Protonix 40 mg daily, glucose replacement protocol as needed, and Custer 5/325 one tab q.3 hours p.r.n. HABITS: No current alcohol or tobacco use. FAMILY HISTORY: Noncontributory. SOCIAL HISTORY: The patient hopes to return back home and get back to her prior level of functioning. REVIEW OF SYSTEMS: GENERAL: Does complain of weakness and fatigue. HEENT: Denies cold, cough, or congestion. CARDIOVASCULAR: Denies chest pain. PHYSICAL EXAMINATION: VITAL SIGNS: Stable, afebrile. GENERAL: A morbidly obese female, in no acute distress, alert upon exam. HEENT: Normocephalic and atraumatic. Mucosa moist. NECK: Supple. No lymphadenopathy. LUNGS: Clear at this time. HEART: Regular rate and rhythm. No murmurs, rubs or gallops. ABDOMEN: Benign. EXTREMITIES: Does have changes consistent with lower extremity surgery. NEUROLOGIC: She does have noted weakness. ASSESSMENT: This is a 43-year-old female patient admitted to the rehab with a working diagnosis of disuse myopathy status post salvage procedure for lower extremity. The patient has potential to make improvement. We instituted the following multidisciplinary therapies including, but not limited to physical, occupational, respiratory, speech, nutritional services, prosthetics and orthotics. Given her complex medical condition and risk for more complications, rehabilitation services cannot be provided at a low level of care such as snf facility. PLAN: 1. Admit to [facility] rehab for an intensive inpatient therapy to include the following disciplines: A. Physical therapy to improve gait, all transfer skills and bed mobility to a modified independent level. B. Occupational therapy to improve activities of daily living to a modified independent level. C. Case management to assist with discharge planning and placement options. D. Nutrition to assist with nutritional needs. E. Rehabilitation nursing to assist in monitoring the patient's underlying medical condition and to assist with any type of bowel and bladder management. 2. The patient's current medications and medical care will be continued. 3. The patient will be placed on standard fall precautions. 4. The patient's estimated length of stay is approximately 7-10 days. 5. We will discuss the patient during care team staff meeting this week. TRANSINT:[id number] Voice Confirmation ID: [id number] DOCUMENT ID: [id number] HISTORY AND PHYSICAL [id number] DEEPTHI HARDY notes whether there has been none or any medical/functional change since admission: - No change since prescreen. MANE attests patient continues to be appropriate for IRF: - Continues to be appropriate. ENRIQUE PELAYO MD at 1209 CC: [id number] DICTATION DATE: 12/16/18 1043 DISTRIBUTION TRANSFORMER ASSEMBLER: 12/16/18 1111 ADM IN [facility] [address] [place] [address]
--- NOTE | 2018-12-18 04:37 | NUR ---
I have reviewed this patient and I concur with the Shift Assessment completed by the Licensed Practical Nurse today this shift.
--- NOTE | 2018-12-18 06:45 | NUR ---
PT IN BED LOWEST POSITION, EYES CLOSED, AROUSES EASILY, RESPIRATIONS EVEN AND UNLABORED, NO IMMEDIATE NEEDS NOTED, FLUIDS AND CALL LIGHT WITHIN REACH
[2018-12-18 08:00] VITALS: BP 115/55
--- NOTE | 2018-12-18 10:00 | NUR ---
PT AM MEDS ADMINSITERED. PT REQ AND RE'CD PRN PAIN MEDICATION AT THIS TIME. PT RESTING IN BED AND DENIES NEEDS. WCTM.
--- NOTE | 2018-12-18 14:16 | NUR ---
Nutrition Follow Up: Chart reviewed Diet: ADA PO Intake: 98% meal avg No BM since admit Meds and labs reviewed Rec continue current diet. RD following.
--- NOTE | 2018-12-18 19:31 | NUR ---
GREETED PATIENT AND INTRODUCED MYSELF. PATIENT IS LAYING IN BED IN SUPINE POSITION. RESPIRATIONS EVEN. NO S/S OF DISTRESS. CALL LIGHT IN REACH. VITAL SIGNS OBTAINED.
[2018-12-18 19:40] VITALS: BP 130/70
[2018-12-19 06:31] LABS: CALC OSMOLALITY 277 mosm/kg (275-300); CALCIUM 8.3 mg/dL (8.5-10.1); CARBON DIOXIDE 27.1 mmol/L (21.0-32.0); CHLORIDE - SERUM 106 mmol/L (98-107); CREATININE - SERUM 0.5 mg/dL (0.6-1.3); SODIUM 140 mmol/L (136-145); UREA NITROGEN 15 mg/dL (7-18); eGFR NON AFRICAN AMERICAN > 90 mL/min (90-120)
[2018-12-19 06:32] LABS: GLUCOSE 61 mg/dL (74-106)
--- NOTE | 2018-12-19 06:45 | NUR ---
PT IN BED LOWEST POSITION, EYES CLOSED, AROUSES EASILY, RESPIRATIONS EVEN AND UNLABORED, NO IMMEDIATE NEEDS NOTED, FLUIDS AND CALL LIGHT WITHIN REACH
[2018-12-19 07:48] LABS: BASOPHILS 0.2 % (0-2); EOSINOPHILS 1.5 % (0-7); HEMATOCRIT 30.1 % (36.0-48.0); HEMOGLOBIN 9.7 g/dL (12-16); IMMATURE GRANULOCYTES 0.3 % (0-5); LYMPHOCYTES 28.7 % (15-50); MCH 27.8 pg (26.0-34.0); MCHC 32.2 g/dL (31.0-37.0); MCV 86.2 fL (80.0-100.0); MONOCYTES 8.3 % (2-11); PLATELET COUNT 501 10x3/uL (130-400); RBC 3.49 10x6/uL (4.00-5.40); WBC 10.4 10x3/uL (4.8-10.8)
[2018-12-19 08:00] VITALS: BP 122/50
--- NOTE | 2018-12-19 08:05 | NUR ---
PT AM MEDS ADMINISTERED. PT DENIES NEEDS. WCTM.
--- NOTE | 2018-12-19 17:33 | NUR ---
PT REQ AND REC'D PRN PAIN MEDICATION AND IS EATING DINNER. PT DENIES FURTHER NEEDS. WCTM.
[2018-12-19 22:01] VITALS: BP 133/56
--- NOTE | 2018-12-19 22:30 | NUR ---
PATIENT RECEIVED SITTING UP IN BED WATCHING TV. PATIENT ASSESSMENT & VITAL SIGNS DONE. BED LOW. CALL LIOGHT WITHIN REACH. WILL CONTINUE TO MONITOR.
--- NOTE | 2018-12-19 23:23 | NUR ---
RESTING IN BED WITH RESPRIATIONS UNLABORED. NO DISTRESS NOTED. CALL LIGHT IN REACH.
[2018-12-20 08:00] VITALS: BP 122/66
--- NOTE | 2018-12-20 10:40 | NUR ---
PATIENT IN REHAB ROOM. WORKING WITH PHYSICAL THERAPIST.
--- NOTE | 2018-12-20 14:35 | NUR ---
I have reviewed this patient and I concur with the Shift Assessment completed by the Licensed Practical Nurse today this shift.
--- NOTE | 2018-12-20 17:01 | NUR ---
PATIENT HELPED WITH SHOWER BY THIS NURSE. PATENT ABLE TO WASH SELF. NEEDED SOME HELP WITH DRYING BACK
--- NOTE | 2018-12-20 19:38 | NUR ---
PT SITTING UP IN BED. CL IN REACH. DENIES NEEDS AT THIS TIME. BED IN LOW SIDE RAILS X2. RESP EVEN AND UNLABORED. WCTM
[2018-12-20 20:13] VITALS: BP 144/70
--- NOTE | 2018-12-21 00:40 | NUR ---
I have reviewed this patient and I concur with the Shift Assessment completed by the Licensed Practical Nurse today this shift.
--- NOTE | 2018-12-21 00:46 | NUR ---
PATIENT RESTING QUIETLY WITH EYES CLOSED. RESPIRATIONS EVEN. NO S/S OF DISTRESS. CALL LIGHT IN REACH.
--- NOTE | 2018-12-21 03:31 | NUR ---
pt resting quietly. eyes closed. no distress noted. wctm cl in reach
[2018-12-21 08:00] VITALS: BP 125/46
--- NOTE | 2018-12-21 09:58 | NUR ---
PATIENT ALERT/ORIENT. CALL LIGHT WITHIN REACH. VOICES NO NEEDS AT THIS TIME. WILL CONTINUE WITH PLAN OF CARE
--- NOTE | 2018-12-21 10:37 | NUR ---
PATIENT HAS SIGNED RELEASE OF RESPONSIBILTY FOR BED/CHAIR ALARM
--- NOTE | 2018-12-21 19:30 | NUR ---
PT UP AT FERNANDO, UP TO TOILET, NO NEEDS NOTED, FLUIDS AND CALL LIGHT WITHIN REACH
--- NOTE | 2018-12-22 03:03 | NUR ---
PT C/O 10 OF 10 PAIN TO RT LEG Q4H PRN PCT GIVEN, PT HEALTH CARE FACILITIES INSPECTOR LIGHT Q4H FOR PRN PAIN MED ALWAYS 10 OF 10 PAIN LEVEL, FLUIDS AND CALL LIGHT WITHIN REACH
[2018-12-22 06:40] VITALS: BP 126/71
[2018-12-22 06:58] LABS: BASOPHILS 0.3 % (0-2); EOSINOPHILS 1.8 % (0-7); HEMATOCRIT 30.8 % (36.0-48.0); IMMATURE GRANULOCYTES 0.3 % (0-5); LYMPHOCYTES 28.8 % (15-50); MCH 27.9 pg (26.0-34.0); MCHC 32.5 g/dL (31.0-37.0); MEAN PLATELET VOLUME 9.2 fL (7.4-10.4); MONOCYTES 7.9 % (2-11); NEUTROPHILS 60.9 % (40-80); PLATELET COUNT 422 10x3/uL (130-400); RBC 3.58 10x6/uL (4.00-5.40); RDW 13.6 % (11.5-14.5); WBC 7.9 10x3/uL (4.8-10.8)
[2018-12-22 07:09] LABS: CALC OSMOLALITY 282 mosm/kg (275-300); CALCIUM 8.2 mg/dL (8.5-10.1); CARBON DIOXIDE 27.1 mmol/L (21.0-32.0); CHLORIDE - SERUM 105 mmol/L (98-107); CREATININE - SERUM 0.6 mg/dL (0.6-1.3); GLUCOSE 194 mg/dL (74-106); POTASSIUM - SERUM 4.7 mmol/L (3.5-5.1); SODIUM 138 mmol/L (136-145); UREA NITROGEN 19 mg/dL (7-18); eGFR NON AFRICAN AMERICAN > 90 mL/min (90-120)
[2018-12-22 08:00] VITALS: BP 126/53
--- NOTE | 2018-12-22 08:18 | NUR ---
PT AM MEDS ADMINISTERED. PT DENIES NEEDS. WCTM.
--- NOTE | 2018-12-22 13:23 | NUR ---
42 IMAN REMOVED FROM PT'S RLE. 5 IMAN REMAIN. STERI STRIPS PLACED. COVERED IN BORDER GAUZE.
--- NOTE | 2018-12-22 14:48 | NUR ---
PATIENT ADMITTED TO REHAB FROM ACUTE FLOOR. DR. MONGE WITH [facility] IS HER PCP. AT THIS TIME SHE HAS NO DME OR HOME HEALTH. DISCHARGE PLANS ARE FOR HER TO RETURN HOME WITH FAMILY. WILL CONTINUE TO FOLLOW WITH PATIENT.
--- NOTE | 2018-12-22 18:00 | NUR ---
PT EATING DINNER. PT REQ AND REC'D PRN PAIN MEDICATION. WCTM.
[2018-12-22 20:25] VITALS: BP 160/70
--- NOTE | 2018-12-22 23:37 | NUR ---
PT IN BED LOWEST POSITION, EYES CLOSED, AROUSES EASILY TO VOICE, NO NEEDS NOTED, RESPIRATIONS EVEN AND UNLABORED, FLUIDS AND CALL LIGHT WITHIN REACH
--- NOTE | 2018-12-23 03:47 | NUR ---
PT AT 2100 REFUSED SLIDING SCALE INSULIN AND ONLY TOOK LANTUS 40MG
[2018-12-23 08:00] VITALS: BP 123/66
--- NOTE | 2018-12-23 10:27 | NUR ---
PT AM MEDICATIONS ADMINISTERED. PT DRESSING CHANGED TO RLE AND MORE STERI STRIPS APPLIED AT THIS TIME. PT REQ AND REC'D PAIN MEDICATION. WCTM.
[2018-12-23 19:32] VITALS: BP 135/69
--- NOTE | 2018-12-23 19:32 | NUR ---
GREETED PATIENT AND INTRODUCED MYSELF HER NURSE. PATIENT IS SITTING UP IN BED. STATES THAT SHE HAD ASKED EARLIER FOR PAIN MEDICATION BUT WAS NEVER ADMINISTERED. VITAL SIGNS OBTAINED. CALL LIGHT IN REACH.
--- NOTE | 2018-12-24 01:35 | NUR ---
PT. RESTING QUIETLY WITH EYES CLOSED. RESPIRATIONS EVEN. NO S/S OF DISTRESS. SR UP X 2. BED IN LOWEST POSITION. CALL LIGHT IN REACH.
[2018-12-24 05:59] LABS: BASOPHILS 0.2 % (0-2); EOSINOPHILS 1.2 % (0-7); HEMATOCRIT 30.8 % (36.0-48.0); IMMATURE GRANULOCYTES 0.2 % (0-5); LYMPHOCYTES 24.3 % (15-50); MCH 27.6 pg (26.0-34.0); MCHC 32.5 g/dL (31.0-37.0); MCV 85.1 fL (80.0-100.0); MEAN PLATELET VOLUME 9.3 fL (7.4-10.4); MONOCYTES 8.6 % (2-11); NEUTROPHILS 65.5 % (40-80); PLATELET COUNT 437 10x3/uL (130-400); RBC 3.62 10x6/uL (4.00-5.40); RDW 13.8 % (11.5-14.5); WBC 9.1 10x3/uL (4.8-10.8)
[2018-12-24 06:23] LABS: CALC OSMOLALITY 285 mosm/kg (275-300); CALCIUM 8.4 mg/dL (8.5-10.1); CARBON DIOXIDE 25.6 mmol/L (21.0-32.0); CHLORIDE - SERUM 105 mmol/L (98-107); CREATININE - SERUM 0.5 mg/dL (0.6-1.3); GLUCOSE 181 mg/dL (74-106); POTASSIUM - SERUM 4.3 mmol/L (3.5-5.1); SODIUM 139 mmol/L (136-145); UREA NITROGEN 21 mg/dL (7-18); eGFR NON AFRICAN AMERICAN > 90 mL/min (90-120)
[2018-12-24 08:00] VITALS: BP 133/65
--- NOTE | 2018-12-24 08:00 | NUR ---
PATIENT IS ALERT/ORIENT. CALL LIGHT WITHIN REACH. VOICES NO NEEDS AT THIS TIME. PLAN TO DISCHARGE HOME TODAY
--- NOTE | 2018-12-24 09:00 | NUR ---
I have reviewed this patient and I concur with the Shift Assessment completed by the Licensed Practical Nurse today this shift.
--- NOTE | 2018-12-24 09:10 | NUR ---
DR. Suleiman PELAYO INTO SEE PATIENT. NEW ORDERS FOR DISCHARGE TO HOME.
[2018-12-24] MEDS ORDERED: PERCOCET 10-321 EAC1 PO (09:21)
--- NOTE | 2018-12-24 09:26 | NUR ---
PATIENT DISCHARGING HOME WITH FAMILY TODAY. [facility] WILL PROVIDE THERAPY. NO NEW DME NEEDED AT THIS TIME. DR. MONGE 12/31/18 @ 10:20. PATIENT CHOICE FORM AND IMFM FORMS SIGNED, COPY GIVEN TO PATIENT AND FILED IN CHART. DISCHARGE INSTRUCTIONS WITH [facility] [employer] FAXED TO PCP, HOME HEALTH AND REVIEWED WITH PATIENT.
--- NOTE | 2018-12-24 11:30 | NUR ---
DISCHARGE INSTRUCTIONS GONE OVER WITH PATIENT. DISCHARGE MEDICATIONS CALLED INTO [facility]. PATIENT HELPED OUT TO CAR BY STAFF
== END 2018-12-24 12:56 | disposition home health service (06) | DRG 92 ==
LOC: D.REHAB 16:42
PROVIDERS: ADMIT Emergency Medicine; ATTEND Emergency Medicine
DX: G72.89 Other specified myopathies (principal); N39.0 Urinary tract infection, site not specified; D62 Acute posthemorrhagic anemia; Z68.42 Body mass index [BMI] 45.0-49.9, adult; E87.1 Hypo-osmolality and hyponatremia; I73.9 Peripheral vascular disease, unspecified; J45.909 Unspecified asthma, uncomplicated; E66.01 Morbid (severe) obesity due to excess calories; E11.9 Type 2 diabetes mellitus without complications; Z91.14 Patient's other noncompliance with medication regimen; D72.829 Elevated white blood cell count, unspecified; I70.229 Atherosclerosis of native arteries of extremities with rest pain, unspecified extremity

== ENCOUNTER 2018-12-31 11:08 | Inpatient (IN) | payer MEDICARE ==
[~2018-12-31] VITALS: Ht 160 cm; Wt 105.7 kg
[~2018-12-31 11:08] MED LIST changes: +BAYER CHEWABLE81 MG PO; +COLACE100 MG PO; +HUMULIN R100 U/ML SC; +LOPRESSOR25 MG PO; +LOVENOX40 MG/0.4 SC; +PERCOCET 10-321 EAC1 PO; +PROTONIX40 MG PO; +TRIPLE ANTIBI28.4 GM TP; +TYLENOL ARTHRI650 MG PO
[2018-12-31 12:27] VITALS: BP 151/64
[2018-12-31 13:53] LABS: HEMATOCRIT 33.8 % (36.0-48.0); HEMOGLOBIN 11.4 g/dL (12-16); LYMPHOCYTES 23.4 % (15-50); MCH 28.4 pg (26.0-34.0); MCHC 33.7 g/dL (31.0-37.0); MCV 84.3 fL (80.0-100.0); PLATELET COUNT 354 10x3/uL (130-400); RBC 4.01 10x6/uL (4.00-5.40); RDW 12.9 % (11.5-14.5); WBC 7.5 10x3/uL (4.8-10.8)
[2018-12-31 13:56] LABS: CALC OSMOLALITY 283 mosm/kg (275-300); CALCIUM 8.8 mg/dL (8.5-10.1); CARBON DIOXIDE 26.5 mmol/L (21.0-32.0); CHLORIDE - SERUM 103 mmol/L (98-107); CREATININE - SERUM 0.6 mg/dL (0.6-1.3); GLUCOSE 228 mg/dL (74-106); POTASSIUM - SERUM 4.5 mmol/L (3.5-5.1); SODIUM 138 mmol/L (136-145); UREA NITROGEN 15 mg/dL (7-18); eGFR NON AFRICAN AMERICAN > 90 mL/min (90-120)
--- NOTE | 2018-12-31 15:46 | NUR ---
THIS NURSE WELL ICU NURSE SKYE ATTEMPTED TO START IV, NOW THE DIRECTOR RISHI IS ATTEMPTING
[2018-12-31 16:00] VITALS: BP 151/64
[2018-12-31 16:53] VITALS: BP 151/64; BMI 41.3
--- NOTE | 2018-12-31 18:18 | NUR ---
CALLED DR CHEN ([phone]) AND INQUIRED ABOUT THE PATIENTS REQUEST FOR PAIN MEDICATION. ALSO INFORMED HIM OF HER REFUSAL TO SHOWER THIS SHIFT. NEW ORDER FOR HYDRO
--- NOTE | 2018-12-31 19:29 | NUR ---
EVENING ROUNDS MADE. PT SITTING UP ON SIDE OF BED. C/O PAIN. PT JUST RECEIVED PAIN MEDICINE BY DAY SHIFT NURSE. PT DENIES FURTHER NEEDS AT THIS TIME. FALL PRECAUTIONS IN PLACE. BED LOWERED AND LOCKED. CL IN REACH. WILL CTM.
[2018-12-31 20:00] VITALS: BP 144/71
--- NOTE | 2018-12-31 21:15 | NUR ---
VITALS STABLE. BS 318, TREATED PER BS PROTOCOL. IV TO R FA, PATENT, DRSG C/D/I. INCISION TO RLE, SCANT LOVELL/YELLOW DRAINAGE NOTED. 4X4 APPLIED TO OPEN SECTION OF INSCISON. IMAN NOTED. PT C/O PAIN, PAIN MEDICINE NOT AVAILABLE FOR PT AT THIS TIME. NO FURTHER CONCERNS. BED LOWERED AND LOCKED. CL IN REACH. WILL CTM.
--- NOTE | 2019-01-01 00:41 | NUR ---
I have reviewed this patient and I concur with the Shift Assessment completed by the Licensed Practical Nurse today this shift.
[2019-01-01 06:04] LABS: BASOPHILS 0.3 % (0-2); EOSINOPHILS 1.7 % (0-7); HEMATOCRIT 31.8 % (36.0-48.0); HEMOGLOBIN 10.6 g/dL (12-16); IMMATURE GRANULOCYTES 0.1 % (0-5); LYMPHOCYTES 30.2 % (15-50); MCH 27.7 pg (26.0-34.0); MCHC 33.3 g/dL (31.0-37.0); MCV 83.2 fL (80.0-100.0); MEAN PLATELET VOLUME 9.6 fL (7.4-10.4); MONOCYTES 9.3 % (2-11); NEUTROPHILS 58.4 % (40-80); PLATELET COUNT 331 10x3/uL (130-400); RBC 3.82 10x6/uL (4.00-5.40); RDW 13.6 % (11.5-14.5); WBC 7.1 10x3/uL (4.8-10.8)
--- NOTE | 2019-01-01 06:32 | NUR ---
PT REFUSED TO TAKE A BATH DURING THE FIREMAN HELPER.
[2019-01-01 06:36] LABS: CALC OSMOLALITY 280 mosm/kg (275-300); CALCIUM 8.4 mg/dL (8.5-10.1); CARBON DIOXIDE 24.3 mmol/L (21.0-32.0); CHLORIDE - SERUM 104 mmol/L (98-107); CREATININE - SERUM 0.6 mg/dL (0.6-1.3); GLUCOSE 195 mg/dL (74-106); SODIUM 138 mmol/L (136-145); UREA NITROGEN 13 mg/dL (7-18); eGFR NON AFRICAN AMERICAN > 90 mL/min (90-120)
[2019-01-01 06:39] LABS: POTASSIUM - SERUM 3.7 mmol/L (3.5-5.1)
[2019-01-01 08:32] VITALS: BP 149/76
--- NOTE | 2019-01-01 08:46 | MORECARE ---
CASE MANAGEMENT DISCHARGE SUMMARY PATIENT: DEEPTHI HARDY UNIT: [id number] ADM DATE: 12/31/18 AGE: 43 : [birth year] SEX: F ROOM/BED: D.2101 AUTHOR: JENNIFER LARSEN PHYSICIAN: REFERRING PHYSICIAN: JOSE CHEN MD DATE OF SERVICE: 01/01/19 Discharge Plan Patient Name: DEEPTHI HARDY [facility] [facility] 1975 Planned Disposition: Home with Home Health Anticipated Discharge Date: Discharge Date: Expected LOS: Initial Reviewer: [email or web address] Initial Review Date: 01/01/2019 Generated: 01/01/19 9:46 am DCPIA - Discharge Planning Initial Assessment Updated by [email or web address]: Mike James on 01/01/19 8:45 am * Is the patient Alert and Oriented? Yes * How many steps to enter\exit or inside your home? * PCP DR. MONGE, [facility] * Pharmacy [facility] * Preadmission Environment Home with Family * ADLs Independent * Equipment None * Other Equipment NO MEDICAL EQUIPMENT PROVIDER PREFERENCE * List name and contact numbers for known caregivers / representatives who currently or will assist patient after discharge: MILAGRO HARDY, MOTHER, * Verbal permission to speak to the caregivers and representatives has been obtained from the patient. N/A * Community resources currently utilized Home Health * Please name any agencies selected above. [facility], PT/[place] * Additional services required to return to the preadmission environment? No * Can the patient safely return to the preadmission environment? Yes * Has this patient been hospitalized within the prior 30 days at any hospital? Yes Patient Name: DEEPTHI HARDY Page [phone] at 0846 All edits/amendments must be made on the electronic document DICTATION DATE: 01/01/19844 CONCERT OR LECTURE HALL MANAGER: ANTHONY 01/01/19844 RPT#: [id number] DC DATE: STATUS: ADM IN [facility] [address] [place] [address] END OF REPORT
--- NOTE | 2019-01-01 08:53 | MORECARE ---
CASE MANAGEMENT DISCHARGE SUMMARY PATIENT: DEEPTHI HARDY UNIT: [id number] ADM DATE: 12/31/18 AGE: 43 : [birth year] SEX: F ROOM/BED: D.2101 AUTHOR: SUZIE,DOC PHYSICIAN: REFERRING PHYSICIAN: JOSE CHEN MD DATE OF SERVICE: 01/01/19 Discharge Plan Patient Name: DEEPTHI HARDY Facility: [facility]:[place] : 1975 Planned Disposition: Home with Home Health Anticipated Discharge Date: Discharge Date: Expected LOS: Initial Reviewer: [email or web address] Initial Review Date: 01/01/2019 Generated: 01/01/19 9:53 am Comments DCP- Discharge Planning Updated by [email or web address]: Mike James on 01/01/19 7:[address] Patient Name: DEEPTHI HARDY Admission Status: Elective Accout number: [id number] Admission Date: 12-31-2018 : 1975 Admission Diagnosis: Attending: JOSE CHEN Current LOS: 1 Anticipated DC Date: Planned Disposition: Home with Home Health Primary Insurance: MEDICARE A & B PLANNED EXTERNAL PROVIDER: [facility] Discharge Planning Comments: CM RECEIVED ORDER FOR POSSIBLE HOME HEALTH. CM MET WITH PT IN ROOM TO DISCUSS DISCHARGE PLANNING AND NEEDS. PT REPORTS LIVING AT HOME INDEPENDENTLY WITH HER MOTHER, STEP DAD AND BROTHER. PT HAS NO MEDICAL EQUIPMENT AND HOME HEALTH FOR PHYSICAL AND OCCUPATIONAL THERAPY WITH [facility]. . CM DISCUSSED AVAILABILITY OF HOME HEALTH, REHAB SERVICES AND MEDICAL EQUIPMENT. PT DENIES DISCHARGE NEEDS OTHER THAN RESUMPTION OF HOME HEALTH. PT REPORTS HER MOM WILL PICK HER UP FOR DISCHARGE HOME. CHOICE FOR [facility] SIGNED. CM FAXED UPDATE TO [facility] AT [phone]. FOR DISCHARGE, FAX DISCHARGE INFORMATION TO [facility] AT [phone], NOTIFY [facility] OF DISCHARGE AT [phone]. PT PLANS TO DISCHARGE HOME WITH FAMILY AND HOME HEALTH, FAMILY TO TRANSPORT HOME. CM TO FOLLOW AND ASSIST IF NEEDED. Non Ferrous Material Handler: Mike James DCPIA - Discharge Planning Initial Assessment Updated by [email or web address]: Mike James on 01/01/19 8:45 am * Is the patient Alert and Oriented? Yes * How many steps to enter\exit or inside your home? * PCP DR. MONGE, [facility] * [facility] * Preadmission Environment Home with Family * ADLs Independent * Equipment None * Other Equipment NO MEDICAL EQUIPMENT PROVIDER PREFERENCE * List name and contact numbers for known caregivers / representatives who currently or will assist patient after discharge: MILAGRO HARDY, MOTHER, * Verbal permission to speak to the caregivers and representatives has been obtained from the patient. N/A * Community resources currently utilized Home Health * Please name any agencies selected above. [facility], PT/[facility] * Additional services required to return to the preadmission environment? No * Can the patient safely return to the preadmission environment? Yes * Has this patient been hospitalized within the prior 30 days at any hospital? Yes External Providers External Provider: [facility] Next Contact Date: 01/01/2019 Service Request Date: Service Type: Resolution: Reviewer: Comments: Coverage Notice Reviewer: [email or web address] Olayinka James Notice Issued Date-Time: 01/01/2019 8:15 Notice Type: Patient Choice Letter Notice Delivered To: Patient Relationship to Patient: Blacksmith Supervisor Name: Delivery Method: HAND - Hand Delivered Aida Days: Prior Verbal Notification: Recipient Understood Notice: Yes Recipient Signature: Yes Med Rec Note Co-signed by Attending: Coverage Notice Comment: [facility] Last DP export: 01/01/19 7:46 a Patient Name: DEEPTHI HARDY Page [phone] at 0853 All edits/amendments must be made on the electronic document DICTATION DATE: 01/01/19852 [employer]: ANTHONY 01/01/19 0853 RPT#: [id number] DC DATE: STATUS: ADM IN [facility] [address] [place] [address] END OF REPORT
[2019-01-01 11:50] VITALS: BP 136/72
[2019-01-01 13:15] VITALS: Ht 160 cm; Wt 105.7 kg
[2019-01-01 15:26] VITALS: BP 140/73
--- NOTE | 2019-01-01 16:38 | NUR ---
SCD'S REFUSED AT THIS TIME
--- NOTE | 2019-01-01 19:15 | NUR ---
EVENING ROUNDS MADE. PT SITTING UP ON THE SIDE OF THE BED. PT C/O PAIN IN LEONARDO LEGS. INFORMED PT THAT IT WASNT TIME FOR PAIN MEDS AGAIN. PT AGREED WITH POC. DENIES FURTHER NEEDS AT THIS TIME. NO FURTHER CONCERNS AT THIS TIME. BED LOWERED AND LOCKED. CL IN REACH. WILL CTM.
[2019-01-01 20:00] VITALS: BP 162/62
--- NOTE | 2019-01-01 21:23 | NUR ---
VITALS STABLE. PT TOOK MEDS WITHOUT DIFFICULTY. C/O PAIN IN R LEG, NORCO GIVEN WITH EVENING MEDS. BS TREATED PER SLIDING SCALE. PT AMBULATED TO BATHROOM WITH ASSIST OF WALKER. NO FURTHER NEEDS AT THIS TIME. BED LOWERED AND LOCKED. CL IN REACH. WILL CTM.
[2019-01-02] VITALS: BP 149/72
[2019-01-02 04:29] LABS: BASOPHILS 0.2 % (0-2); EOSINOPHILS 2.1 % (0-7); HEMATOCRIT 32.4 % (36.0-48.0); HEMOGLOBIN 10.6 g/dL (12-16); IMMATURE GRANULOCYTES 0.2 % (0-5); LYMPHOCYTES 38.5 % (15-50); MCH 27.7 pg (26.0-34.0); MCHC 32.7 g/dL (31.0-37.0); MCV 84.8 fL (80.0-100.0); MEAN PLATELET VOLUME 9.3 fL (7.4-10.4); MONOCYTES 7.9 % (2-11); NEUTROPHILS 51.1 % (40-80); PLATELET COUNT 292 10x3/uL (130-400); RBC 3.82 10x6/uL (4.00-5.40); WBC 6.3 10x3/uL (4.8-10.8)
[2019-01-02 04:30] VITALS: BP 133/72
[2019-01-02 04:38] LABS: ALBUMIN 2.4 g/dL (3.4-5.0); ALKALINE PHOSPHATASE 79 U/L (46-116); ALT (SGPT) 10 U/L (10-68); BILIRUBIN - TOTAL 0.22 mg/dL (0.2-1.3); CALC OSMOLALITY 282 mosm/kg (275-300); CALCIUM 8.6 mg/dL (8.5-10.1); CARBON DIOXIDE 26.4 mmol/L (21.0-32.0); CHLORIDE - SERUM 104 mmol/L (98-107); CREATININE - SERUM 0.7 mg/dL (0.6-1.3); MAGNESIUM - SERUM 1.8 mg/dL (1.8-2.4); PHOSPHOROUS 4.4 mg/dL (2.5-4.9); PROTEIN - SERUM 6.4 g/dL (6.4-8.2); SODIUM 137 mmol/L (136-145); UREA NITROGEN 15 mg/dL (7-18); eGFR NON AFRICAN AMERICAN > 90 mL/min (90-120)
[2019-01-02 04:41] LABS: GLUCOSE 245 mg/dL (74-106)
--- NOTE | 2019-01-02 06:08 | NUR ---
I have reviewed this patient and I concur with the Shift Assessment completed by the Licensed Practical Nurse today this shift.
[2019-01-02 07:50] VITALS: BP 152/70
--- NOTE | 2019-01-02 10:04 | NUR ---
PATIENT IS ALERT AND ORIENTED. SHE HAS COMPLAINED OF PAIN. PAIN TREATED ORDERED. PATIENT REPORTS A DECREASE IN PAIN FROM A 10 TO A 5 AFTER MEDICATION. SHE DENIES ANY NEEDS AT THIS TIME.
[2019-01-02 12:20] VITALS: BP 158/77
[2019-01-02 15:38] VITALS: BP 138/72
--- NOTE | 2019-01-02 16:19 | MORECARE ---
CASE MANAGEMENT DISCHARGE SUMMARY PATIENT: DEEPTHI HARDY UNIT: [id number] ADM DATE: 12/31/18 AGE: 43 : 77 SEX: F ROOM/BED: D.2101 AUTHOR: SUZIE,DOC PHYSICIAN: REFERRING PHYSICIAN: JOSE CHEN MD DATE OF SERVICE: 01/02/19 Discharge Plan Patient Name: DEEPTHI HARDY Facility: [facility]:[place] : 1975 Planned Disposition: Home with Home Health Anticipated Discharge Date: Discharge Date: Expected LOS: Initial Reviewer: [email or web address] Initial Review Date: 01/01/2019 Generated: 01/02/19 5:18 pm DCP- Discharge Planning Updated by [email or web address]: Mike James on 01/01/19 7:[address] Patient Name: DEEPTHI HARDY Admission Status: Elective Accout number: [id number] Admission Date: 12-31-2018 : 1975 Admission Diagnosis: Attending: JOSE CHEN Current LOS: 1 Anticipated DC Date: Planned Disposition: Home with Home Health Primary Insurance: MEDICARE A & B PLANNED EXTERNAL PROVIDER: [facility] Discharge Planning Comments: CM RECEIVED ORDER FOR POSSIBLE HOME HEALTH. CM MET WITH PT IN ROOM TO DISCUSS DISCHARGE PLANNING AND NEEDS. PT REPORTS LIVING AT HOME INDEPENDENTLY WITH HER MOTHER, STEP DAD AND BROTHER. PT HAS NO MEDICAL EQUIPMENT AND HOME HEALTH FOR PHYSICAL AND OCCUPATIONAL THERAPY WITH [facility]. . CM DISCUSSED AVAILABILITY OF HOME HEALTH, REHAB SERVICES AND MEDICAL EQUIPMENT. PT DENIES DISCHARGE NEEDS OTHER THAN RESUMPTION OF HOME HEALTH. PT REPORTS HER MOM WILL PICK HER UP FOR DISCHARGE HOME. CHOICE FOR [facility] SIGNED. CM FAXED UPDATE TO [facility] AT [phone]. FOR DISCHARGE, FAX DISCHARGE INFORMATION TO [facility] AT [phone], NOTIFY [facility] OF DISCHARGE AT [phone]. PT PLANS TO DISCHARGE HOME WITH FAMILY AND HOME HEALTH, FAMILY TO TRANSPORT HOME. CM TO FOLLOW AND ASSIST IF NEEDED. Tele Rn: Mike James DCPIA - Discharge Planning Initial Assessment Updated by [email or web address]: Mike James on 01/01/19 8:45 am * Is the patient Alert and Oriented? Yes * How many steps to enter\exit or inside your home? * PCP DR. OMNGE, [facility] * [facility] * Preadmission Environment Home with Family * ADLs Independent * Equipment None * Other Equipment NO MEDICAL EQUIPMENT PROVIDER PREFERENCE * List name and contact numbers for known caregivers / representatives who currently or will assist patient after discharge: MILAGRO HARDY, MOTHER, * Verbal permission to speak to the caregivers and representatives has been obtained from the patient. N/A * Community resources currently utilized Home Health * Please name any agencies selected above. [facility], PT/OT * Additional services required to return to the preadmission environment? No * Can the patient safely return to the preadmission environment? Yes * Has this patient been hospitalized within the prior 30 days at any hospital? Yes External Providers External Provider: [facility] Next Contact Date: 01/02/2019 Service Request Date: Service Type: Resolution: Reviewer: Comments: External Provider: CHUN Zuleta Next Contact Date: 01/02/2019 Service Request Date: Service Type: Resolution: Reviewer: Comments: Coverage Notice Reviewer: [email or web address] Olayinka James Notice Issued Date-Time: 01/01/2019 8:15 Notice Type: Patient Choice Letter Notice Delivered To: Patient Relationship to Patient: Floating Labor Gang Supervisor Name: Delivery Method: HAND - Hand Delivered Aida Days: Prior Verbal Notification: Recipient Understood Notice: Yes Recipient Signature: Yes Med Rec Note Co-signed by Attending: Coverage Notice Comment: [facility] Last DP export: 01/01/19 7:53 a Patient Name: DEEPTHI HARDY Page [phone] at 1619 All edits/amendments must be made on the electronic document DICTATION DATE: 01/02/191617 CELLOPHANE CASTING MACHINE REPAIRER: ANTHONY 01/02/191617 RPT#: [id number] DC DATE: STATUS: ADM IN [facility] [address] [place] [address] END OF REPORT
--- NOTE | 2019-01-02 16:36 | MORECARE ---
CASE MANAGEMENT DISCHARGE SUMMARY PATIENT: DEEPTHI HARDY UNIT: [id number] ADM DATE: 12/31/18 AGE: 43 : [birth year] SEX: F ROOM/BED: D.2101 AUTHOR: SUZIE,DOC PHYSICIAN: REFERRING PHYSICIAN: JOSE CHEN MD DATE OF SERVICE: 01/02/19 Discharge Plan Patient Name: DEEPTHI HARDY Facility: [facility]:[place] : 1975 Planned Disposition: Residential Facility Anticipated Discharge Date: 01/05/19 Discharge Date: Expected LOS: 5 Initial Reviewer: [id number] Initial Review Date: 01/01/2019 Generated: 01/02/19 5:35 pm DCP- Discharge Planning Updated by [email or web address]: Mike James on 01/01/19 7:[address] Patient Name: DEEPTHI HARDY Admission Status: Elective Accout number: [id number] Admission Date: 12-31-2018 : 1975 Admission Diagnosis: Attending: JOSE CHEN Current LOS: 1 Anticipated DC Date: Planned Disposition: Home with Home Health Primary Insurance: MEDICARE A & B PLANNED EXTERNAL PROVIDER: [facility] Discharge Planning Comments: CM RECEIVED ORDER FOR POSSIBLE HOME HEALTH. CM MET WITH PT IN ROOM TO DISCUSS DISCHARGE PLANNING AND NEEDS. PT REPORTS LIVING AT HOME INDEPENDENTLY WITH HER MOTHER, STEP DAD AND BROTHER. PT HAS NO MEDICAL EQUIPMENT AND HOME HEALTH FOR PHYSICAL AND OCCUPATIONAL THERAPY WITH [facility]. . CM DISCUSSED AVAILABILITY OF HOME HEALTH, REHAB SERVICES AND MEDICAL EQUIPMENT. PT DENIES DISCHARGE NEEDS OTHER THAN RESUMPTION OF HOME HEALTH. PT REPORTS HER MOM WILL PICK HER UP FOR DISCHARGE HOME. CHOICE FOR [facility] SIGNED. CM FAXED UPDATE TO [facility] AT [phone]. FOR DISCHARGE, FAX DISCHARGE INFORMATION TO [facility] AT [phone], NOTIFY [facility] OF DISCHARGE AT [phone]. PT PLANS TO DISCHARGE HOME WITH FAMILY AND HOME HEALTH, FAMILY TO TRANSPORT HOME. CM TO FOLLOW AND ASSIST IF NEEDED. Black Pickler: Mike James DCPIA - Discharge Planning Initial Assessment Updated by [id number]: Mike James on 01/01/19 8:45 am * Is the patient Alert and Oriented? Yes * How many steps to enter\exit or inside your home? * PCP DR. MONGE, [facility], [place] * [facility] * Preadmission Environment Home with Family * ADLs Independent * Equipment None * Other Equipment NO MEDICAL EQUIPMENT PROVIDER PREFERENCE * List name and contact numbers for known caregivers / representatives who currently or will assist patient after discharge: MILAGRO AHRDY, MOTHER, * Verbal permission to speak to the caregivers and representatives has been obtained from the patient. N/A * Community resources currently utilized Home Health * Please name any agencies selected above. [facility], [facility] * Additional services required to return to the preadmission environment? No * Can the patient safely return to the preadmission environment? Yes * Has this patient been hospitalized within the prior 30 days at any hospital? Yes Coverage Notice Reviewer: [id number] Olayinka James Notice Issued Date-Time: 01/01/2019 8:15 Notice Type: Patient Choice Letter Notice Delivered To: Patient Relationship to Patient: Drum Worker Name: Delivery Method: HAND - Hand Delivered Aida Days: Prior Verbal Notification: Recipient Understood Notice: Yes Recipient Signature: Yes Med Rec Note Co-signed by Attending: Coverage Notice Comment: [facility] Last DP export: 01/02/19 3:19 p Patient Name: DEEPTHI HARDY Page [id number] at 1636 All edits/amendments must be made on the electronic document DICTATION DATE: 01/02/191634 LANDSCAPER HELPER: ANTHONY 01/02/19 1635 RPT#: [id number] DC DATE: STATUS: ADM IN [facility] [address] [place] [address] END OF REPORT
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
--- NOTE | 2019-01-02 16:52 | NUR ---
REMOVED 5 IMAN FROM THE RIGHT LEG INCISION. DRESSING CHANGED 2 TIMES TODAYAND PATIENT HAS HAD HER SHOWER TODAY. FOLLOWING DR ORDERS ON STAPEL REMOVAL. STERI STRIPS APPLIED.
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
--- NOTE | 2019-01-02 19:58 | NUR ---
PT DC HOME VIA WHEELCHAIR PER PERSONAL CAR
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
== END 2019-01-02 19:59 | disposition left against medical advice (07) | DRG 264 ==
LOC: D.M2 11:08
PROVIDERS: Emergency Medicine; ADMIT Internal Medicine Cardiovascular Disease; ATTEND Internal Medicine Cardiovascular Disease
PROC: 0JBQ0ZZ Excision of Right Foot Subcutaneous Tissue and Fascia, Open Approach (ICD-10-PCS; principal; 2019-01-02)
DX: E11.51 Type 2 diabetes mellitus with diabetic peripheral angiopathy without gangrene (principal); Z68.41 Body mass index [BMI] 40.0-44.9, adult; T81.89XA Other complications of procedures, not elsewhere classified, initial encounter; Y83.9 Surgical procedure, unspecified as the cause of abnormal reaction of the patient, or of later complication, without mention of misadventure at the time of the procedure; D64.9 Anemia, unspecified; E11.40 Type 2 diabetes mellitus with diabetic neuropathy, unspecified; E66.01 Morbid (severe) obesity due to excess calories; I70.201 Unspecified atherosclerosis of native arteries of extremities, right leg

== ENCOUNTER → 2018-12-31 17:03 | Outpatient (CLI) | payer MEDICARE ==
[2018-12-16 08:39] VITALS: BMI 41.2
[~2018-12-31 17:03] MED LIST changes: +BUSPAR 15 MG TA15 MG PO; +CELEBREX200 MG PO; +CLEOCIN HCL300 MG PO; +LAMICTAL ODT25 MG PO; +TRAZODONE HCL150 MG PO; +ULTRAM50 MG PO
== END | disposition home or self-care (01) ==
LOC: D.LABREF 17:03
PROVIDERS: ATTEND Internal Medicine Cardiovascular Disease
DX: T81.89XA Other complications of procedures, not elsewhere classified, initial encounter (principal)

== ENCOUNTER → 2019-01-12 11:07 | Outpatient (CLI) | payer MEDICARE ==
[2019-01-01 13:15] VITALS: BMI 41.2
[~2019-01-12 11:07] MED LIST changes: -BUSPAR 15 MG TA15 MG PO; -CELEBREX200 MG PO; -CLEOCIN HCL300 MG PO; -LAMICTAL ODT25 MG PO; -TRAZODONE HCL150 MG PO; -ULTRAM50 MG PO
== END | disposition home or self-care (01) ==
LOC: D.CT 11:07
PROVIDERS: ATTEND Internal Medicine Cardiovascular Disease
DX: T81.49XA Infection following a procedure, other surgical site, initial encounter (principal)

== ENCOUNTER 2019-01-17 21:38 | Emergency (ER) | payer MEDICARE ==
[~2019-01-17] VITALS: Ht 160 cm; Wt 104.1 kg
[2019-01-17 21:46] VITALS: Ht 160 cm; Wt 104.1 kg
[2019-01-17] MEDS ORDERED: HUMALOG 30100 UNITS/ SC (21:48)
[2019-01-17] MEDS ORDERED: GLUCOPHAGE500 MG PO (21:48)
[2019-01-17] MEDS ORDERED: TRAZODONE HCL150 MG PO (21:49)
[2019-01-17] MEDS ORDERED: LAMICTAL ODT25 MG PO (21:49)
[2019-01-17] MEDS ORDERED: CELEBREX200 MG PO (22:31)
[2019-01-17 22:45] VITALS: BP 122/70
== END 2019-01-17 22:45 | disposition home or self-care (01) ==
LOC: D.ER 21:38
DX: M17.11 Unilateral primary osteoarthritis, right knee (principal)

== ENCOUNTER 2019-01-20 08:15 | Outpatient (CLI) | payer MEDICARE ==
[~2019-01-20] VITALS: Ht 160 cm; Wt 104.1 kg
--- NOTE | ~2019-01-20 | HEMODYNAMI ---
PATIENT:DEEPTHI HARDY MEDICAL RECORD: [id number] : 77 [id number] ADMISSION DATE: 01/20/19 Generatedon:01/20/201912:04 Patient name: DEEPTHI HARDY Patient #: [id number] SSN: : 1975 Date of study: 01/20/2019 Page: Of Hemodynamic Procedure Report Patient Data Patient Demographics Procedure consent was obtained First Name: DEEPTHI Gender: Female Last Name: HAYLEY : 1975 Middle Initial: R Age: 43 year(s) Patient #: [id number] Race: Unknown Additional ID: [id number] Contact details Address: [address] [place] [address] State: [place] City: [place] Zip code: [address] Past Medical History Allergies: No known allergies Admission Admission Data Admission Date: 01/20/2019 Admission Time: 8:15 Procedure Procedure Types Cath Procedure Peripheral Cath Diagnostic Procedure Abd/Extremity Extremities Bilat Lower Extremity Procedure Description Procedure Date Procedure Date: 01/20/2019 Procedure Start Time: 10:56 Procedure End Time: 12:04 Procedure Staff Name Function Theron Monte MD Performing Physician SHERRELL ALBA RT Monitor Nikos Cazares RT Scrub Isha Walsh RN Nurse Nasra Goldberg RN Nurse Procedure Data Cath Procedure Fluoroscopy Diagnostic fluoroscopy Total fluoroscopy Time: 5.5 time: 5.5 min min Contrast Material Contrast Material Type Amount (ml) Isovue 300 125 Entry Location Entry Primary Successful Side Size Upsize Upsize Entry Closure Succes sful Closure Location (Fr) 1 (Fr) 2 (Fr) Remarks Device Remarks Femoral Left 5 Fr 6 Fr 6 Fr Exoseal artery Long Short Diagnostic catheters Device Type Used For End Catheter Placement Angiodynamics SOS OMNI 2 NON B 5FR 65CM catheter ([id number]) Procedure Medications Medication Administration Route Dosage Benadryl I.V. 50 mg Heparin Flush Bag added to field 3 bags (1000units/500ml NS) Lidocaine 1% added to field 20 Versed I.V. 1 mg Fentanyl I.V. 50 mcg Versed I.V. 1 mg Fentanyl I.V. 50 mcg Versed I.V. 1 mg Fentanyl I.V. 50 mcg Hydralizine I.V. 20 mg Versed I.V. 1 mg Fentanyl I.V. 50 mcg Fentanyl I.V. 50 mcg Versed I.V. 1 mg Versed I.V. 1 mg Fentanyl I.V. 50 mcg Heparin Bolus I.V. 5000 units Labetalol I.V. 5 mg Labetalol I.V. 10 mg Hemodynamics Rest Heart Rate: 86 (bpm) Snapshots Pre Cath Intra NCS Post Cath Vital Signs Time Heart Resp SPO2 etCO2 NIBP (mmHg) Rhythm Pain Sedation Rate (ipm) (%) (mmHg) Status Level (bpm) 10:38:22 86 21 100 27.7 185/96(135) NSR 0 (11) 10(A) , No pain 10:42:50 86 22 100 28.4 182/95(140) NSR 0 (11) 10(A) , No pain 10:47:18 87 23 100 29.9 176/95(139) NSR 0 (11) 10(A) , No pain 10:51:49 90 18 100 29.2 184/97(147) NSR 0 (11) 10(A) , No pain 10:56:21 90 25 100 30.7 185/97(145) NSR 0 (11) 8(A) , No pain 11:00:50 91 23 100 32.9 184/94(135) NSR 0 (11) 8(A) , No pain 11:05:16 91 19 100 35.9 181/94(135) NSR 0 (11) 8(A) , No pain 11:09:58 105 28 100 29.2 168/92(126) NSR 0 (11) 8(A) , No pain 11:14:25 106 22 100 28.4 169/91(128) NSR 0 (11) 8(A) , No pain 11:18:51 107 20 100 31.4 168/85(124) NSR 0 (11) 8(A) , No pain 11:23:15 109 26 100 26.2 179/91(133) NSR 0 (11) 8(A) , No pain 11:27:39 111 17 100 27.7 164/86(119) NSR 0 (11) 8(A) , No pain 11:32:04 114 24 100 30.7 179/90(120) NSR 0 (11) 8(A) , No pain 11:36:32 112 15 100 20.2 169/86(137) NSR 0 (11) 8(A) , No pain 11:40:52 112 19 99 26.9 171/90(124) NSR 0 (11) 8(A) , No pain 11:45:16 109 19 100 26.2 176/93(132) NSR 0 (11) 8(A) , No pain 11:49:47 104 17 100 25.4 169/90(120) NSR 0 (11) 8(A) , No pain 11:52:23 99 27 100 26.2 160/89(126) NSR 0 (11) 8(A) , No pain 11:55:52 94 21 100 25.4 148/84(120) NSR 0 (11) 8(A) , No pain 12:00:12 97 24 100 22.4 163/88(145) NSR 0 (11) 8(A) , No pain 12:04:34 93 15 100 28.4 143/74(108) NSR 0 (11) 8(A) , No pain Medications Time Medication Route Dose Verified Delivered Reason Notes Ef fectiveness by by 10:47:01 Benadryl I.V. 50 mg Theron Hammonds used for Yusuf Monte RN procedure 10:47:25 Heparin Flush added 3bags Theron Crump used for Bag to Lavell Monte MD procedure (1000units/500ml field GUADALUPE NS) 10:47:40 Lidocaine 1% added 20ml Theron Crump used for to vial Lavell Monte MD procedure field GUADALUPE 10:52:40 Versed I.V. 1 mg Theron Hammonds for sedation Yusuf Monte RN, MD 10:52:51 Fentanyl I.V. 50 Theron Nasra for sedation mcg Yusuf Monte RN, MD 10:55:55 Versed I.V. 1 mg Theron Mccallumi for sedation Yusuf Monte RN, MD 10:56:03 Fentanyl I.V. 50 Theron Mccallumi for sedation mcg Yusuf Monte RN, MD 11:01:53 Versed I.V. 1 mg Theron Nasra for sedation Yusuf Monte RN, MD 11:02:01 Fentanyl I.V. 50 Theron Nasra for sedation mcg Yusuf Monte RN, MD 11:04:16 Hydralizine I.V. 20 mg Theron Nasra for Yusuf Monte RN, MD 11:08:41 Versed I.V. 1 mg Theron Nasra for sedation Yusuf Monte RN, MD 11:08:49 Fentanyl I.V. 50 Theron Nasra for sedation mcg Yusuf Monte RN, MD 11:16:14 Fentanyl I.V. 50 Theron Nasra for sedation mcg Yusuf Monte RN, MD 11:16:21 Versed I.V. 1 mg Theron Nasra for sedation Yusuf Monte RN, MD 11:23:27 Versed I.V. 1 mg Theron Nasra for sedation Yusuf Monte RN, MD 11:23:37 Fentanyl I.V. 50 Theron Nasra for sedation mcg Yusuf Monte RN, MD 11:24:23 Heparin Bolus I.V. 5000 Theron Nasra Per units Yusuf Monte RN physician 11:46:57 Labetalol I.V. 5 mg Theron Nasra for Yusuf Monte RN, MD 11:54:11 Labetalol I.V. 10mg Theron Nasra for Yusuf Monte RN hypertension Procedure Log Time Note 10:34:39 Nikos Cazares RT (R) (CV) sent for patient. Start room use. 10:34:50 Time tracking: Regular hours (M-F 7:00 - 5:00) 10:34:54 Plan of Care:Hemodynamics will remain stable., Cardiac rhythm will remain stable., Comfort level will be maintained., Respiratory function will remain adequate., Patient/ family verbilizes understanding of procedure., Procedure tolerated without complication., Recovers from procedure without complications.. 10:34:59 Patient received from Outpatients to IR Alert and oriented. Tansferred to table in Supine position. 10:35:02 Signed procedure consent form obtained from patient. 10:35:04 Correct patient and procedure confirmed by team. 10:35:04 ECG and BP/O2 sat monitors applied to patient. 10:35:05 Full Disclosure recording started 10:35:06 - 10:35:08 H&P Date Dictated: 01/20/2019 H&P Addendum completed by physician on day of procedure. (MUST COMPLETE FOR ALL OUTPATIENTS). 10:35:09 Pre-procedure instructions explained to patient. 10:35:09 Pre-op teaching completed and patient verbalized understanding. 10:35:11 Family unavailable. 10:35:14 Patient NPO since Midnight. 10:35:20 Use device set IR Diagnostic 10:35:22 ACIST Syringe (99391) opened to sterile field. 10:35:22 ACIST Hand Control (69040) opened to sterile field. 10:35:22 ACIST Manifold (46948) opened to sterile field. 10:35:23 Bag Decanter (2002S) opened to sterile field. 10:35:23 Sterile Angiographic Pack opened to sterile field. 10:35:24 Tegaderm 4 x 4 (1626W) opened to sterile field. 10:35:37 Patient allergic to No known allergies 10:35:43 Is the patient allergic to Iodine/contrast media? No. 10:35:49 Is patient on blood thinner?Yes 10:36:00 Patient diabetic? Yes. 10:36:04 If diabetic: On Metformin? Yes 10:36:10 If on Metformin: Last Dose? 01/18/2019 10:36:12 - 10:36:16 ----Pre-sedation anethsthesia assessment.---- 10:36:21 Previous problem with sedation/anesthesia? No ? 10:36:24 Snore? No 10:36:25 Sleep apnea? No 10:36:26 Deviated septum? No 10:36:28 Opens mouth fully? Yes 10:36:29 Sticks out tongue? Yes 10:36:31 Airway obstruction? No ? 10:36:35 Dentures? No ? 10:36:36 - 10:36:40 Pre procedure: right dorsailis pedis pulse Doppler 10:36:43 Pre procedure: left dorsailis pedis pulse Doppler 10:36:45 Pre procedure: right posterior tibial pulse Doppler 10:36:48 Pre procedure: left posterior tibial pulse Doppler 10:37:00 Baseline sample Acquired. 10:37:00 Vital chart was started 10:39:24 MICROPUNCTURE 4FR Cook (D89670) opened to sterile field. 10:39:25 DOC .035 wire (Q87023) opened to sterile field. 10:39:26 SHEATH 5FR Plainview (LAC211) opened to sterile field. 10:39:26 KAHN 260 wire (J35385) opened to sterile field. 10:39:27 GLIDE CATHETER 5FR ANGLED 65cm (CG507) opened to sterile field. 10:45:13 IV patent on arrival in left forearm with 0.45%NaCl at O. 10:45:25 Left groin area was prepped with chlora-prep and draped in sterile fashion 10:45:27 Alarms reviewed by R. N. 10:45:27 Sharps counted by scrub and verified by R.N. 10:47:01 Benadryl 50 mg I.V. was administered by Nasra Goldberg RN; used for procedure; 10:47:25 Heparin Flush Bag (1000units/500ml NS) 3bags added to field was administered by Theron Monte MD; used for procedure; 10:47:40 Lidocaine 1% 20ml vial added to field was administered by Theron Monte MD; used for procedure; 10:49:25 A Angiodynamics SOS OMNI 2 NON B 5FR 65CM catheter ([id number]) was advanced over the wire. 10:50:51 Physician arrived 10:51:02 --------ALL STOP TIME OUT------ 10:52:25 Left groin site verified by team. 10:52:29 Fire Safety Assessment: A--An alcohol-based skin anteseptic being used preoperatively., C--Open oxygen or nitrous oxide is being used. 10:52:35 1) 90+ Normal kidney functon but urine findings or structural abnormalities or genetic trait point to kidney disease. 10:52:40 Versed 1 mg I.V. was administered by Nasar Goldberg RN; for sedation; 10:52:51 Fentanyl 50 mcg I.V. was administered by Nasra Goldberg RN; for sedation; 10:53:58 Procedure started. 10:55:55 Versed 1 mg I.V. was administered by Nasra Goldberg RN; for sedation; 10:56:03 Fentanyl 50 mcg I.V. was administered by Nasra Goldberg RN; for sedation; 10:56:33 Local anesthetic to left femerol artery with Lidocaine 1% by Theron Monte MD.INITIAL ACCESS ONLY 10:57:14 Access obtained with 4Fr micropunture. 10:59:06 AMPLATZ Super Stiff 75cm wire ([id number]) opened to sterile field. 11:01:48 A 5 Fr sheath was inserted into the Left Femoral artery 11:01:53 Versed 1 mg I.V. was administered by Nasra Goldberg RN; for sedation; 11:02:01 Fentanyl 50 mcg I.V. was administered by Nasra Goldberg RN; for sedation; 11:04:16 Hydralizine 20 mg I.V. was administered by Nasra Goldberg RN; for hypertension; 11:06:43 TORQUE DEVICE PLASTIC .038 ( TD01) opened to sterile field. 11:08:41 Versed 1 mg I.V. was administered by Nasra Goldberg RN; for sedation; 11:08:49 Fentanyl 50 mcg I.V. was administered by Nasra Goldberg RN; for sedation; 11:16:14 Fentanyl 50 mcg I.V. was administered by Nasra Goldberg RN; for sedation; 11:16:21 Versed 1 mg I.V. was administered by Nasra Goldberg RN; for sedation; 11:20:40 SHEATH 6FR Destination (RSR01) opened to sterile field. 11:20:47 Sheath upsized to a 6 Fr Long. 11:21:50 INFLATOR BasixTOUCH (GG9659) opened to sterile field. 11:23:27 Versed 1 mg I.V. was administered by Nasra Goldberg RN; for sedation; 11:23:37 Fentanyl 50 mcg I.V. was administered by Nasra Goldberg RN; for sedation; 11:24:23 Heparin Bolus 5000 units I.V. was administered by Nasra Goldberg RN; Per physician; 11:27:46 Inflate balloon Inflation number: 1 A Evercross 4 x 6 x 135 Balloon ([id number]) was prepped and advanced across the Undefined1 , then inflated . 11:28:10 Inflate balloon Inflation number: 2 A Evercross 6 x 6 x 135 Balloon ([id number]) was prepped and advanced across the Undefined1 , then inflated . 11:42:34 Inflate balloon Inflation number: 3 A INPACT ADMIRAL 6X60 ([id number] ) was prepped and advanced across the Undefined1 , then inflated . 11:46:57 Labetalol 5 mg I.V. was administered by Nasra Goldberg RN; for hypertension; 11:47:32 SHEATH 6FR Plainview (OAO613) opened to sterile field. 11:54:11 Labetalol 10mg I.V. was administered by Nasra Goldberg RN; for hypertension; 11:54:18 EXOSEAL 6Fr (EX600) opened to sterile field. 11:55:20 Sheath upsized to a 6 Fr Short. 11:55:20 Sheath removed intact; hemostasis achieved with Exoseal to the Left Femoral artery. 11:57:53 Procedure ended.(Physican Out) 11:59:00 Fluoroscopy time 05.50 minutes. 11:59:10 Dose Area Product 441 mGy/cm. 11:59:17 Contrast amount:Isovue 300 125ml. 11:59:19 Sharps counted by scrub and verified by R.N. 11:59:33 Post-op/insertion site Left Femoral artery dressed using a 4 x 4 and Tegaderm. 11:59:37 Post procedure instruction explained to patient.Patient verbalizes understanding. 11:59:40 Procedure and supply charges have been captured, reviewed, submitted an d are correct. 12:04:17 Vital chart was stopped 12:04:19 See physician's report for complete and final results. 12:04:22 Patient transfered to Outpatients with Stretcher. 12:04:26 Procedure ended. 12:04:26 Full Disclosure recording stopped Intervention Summary Intervention Notes Time ActionType Lesion and Equipment Used Action# Pressure Duration Attributes 11:27:46 Inflate Undefined1 Evercross 4 x 6 1 0 00:00 balloon x 135 Balloon ([id number]) 11:28:10 Inflate Undefined1 Evercross 6 x 6 1 0 00:00 balloon x 135 Balloon ([id number]) 11:42:34 Inflate Undefined1 INPACT ADMIRAL 3 0 00:00 balloon 6X60 ([id number]) Device Usage Item Name Manufacture Quantity Catalog Number Hospital Part Current Minimal Lot# / Charge Number Stock Stock Serial# Code ACIST Syringe Acist Medical 1 10028 550856 220112 642547 20 (04487) Systems Inc ACIST Hand Acist Medical 1 24664 145313 509587 066887 5 Control (25285) Systems Inc ACIST Manifold Acist Medical 1 12427 810332 061562 977339 5 (19427) Systems Inc Bag Decanter Microtek 1 2002S 312645 55783 364374 5 (2002S) Medical Inc. Sterile Cardinal 1 [id number] 229540 737124 5 Angiographic Health Pack Tegaderm 4 x 4 3M 1 1626W 283838 387062 347090 5 (1626W) MICROPUNCTURE Cook Medical 1 J13753 652411 480936 620630 5 4FR Canvera [employer] (U33792) DOC .035 wire Cook Medical 1 J12881 716440 449914 5 (U05601) SHEATH 5FR Terumo 1 YOI021 504437 290161 403017 5 Plainview (FMW535) KAHN 260 wire Cook Medical 1 K85904 070180 28168 973527 5 4635036 (C77153) GLIDE CATHETER Terumo 1 CG507 882281 111204 5 5FR ANGLED 65cm (CG507) Angiodynamics Angiodynamics 1 78522270 272178 58498 112519 5 SOS OMNI 2 NON B 5FR 65CM catheter (11030552) AMPLATZ Super [place] 1 [id number] 114732 906940 413806 5 [id number] Stiff 75cm wire Scientific ([id number]) TORQUE DEVICE Tupelo 1 TD01 764153 621732 556865 5 PLASTIC .038 ( Scientific TD01) SHEATH 6FR Terumo 1 RSR01 240365 97907 623394 5 Destination (RSR01) INFLATOR Merit Medical 1 LN0423 467235 447960 817142 5 BasixTOUCH (JH7829) Evercross 6 x 6 Medtronic 1 [id number] 621107 728962 5 H461623 x 135 Balloon ([id number]) Evercross 4 x 6 Medtronic 1 [id number] 672420 719019 614735 5 F789865 x 135 Balloon ([id number]) INPACT ADMIRAL Medtronic 1 [id number] 000782 176170 202326 9 [id number] 6X60 ([id number]) SHEATH 6FR Terumo 1 OFF891 014454 391635 041692 40 Plainview (SMF908) EXOSEAL 6Fr Cardinal 1 EX600 820006 663771 773913 10 (EX600) Health Signature Audit [place] Stage Time Signature Unsigned Intra-Procedure 01/20/2019 SHERRELL ALBA RT 12:04:49 PM (R) Signatures Monitor : SHERRELL ALBA RT Signature : Date : Time : [address] [address]
[~2019-01-20 08:15] MED LIST changes: +CELEBREX200 MG PO; +LAMICTAL ODT25 MG PO; +TRAZODONE HCL150 MG PO
[2019-01-20 08:59] LABS: BASOPHILS 0.1 % (0-2); EOSINOPHILS 2.4 % (0-7); HEMATOCRIT 35.6 % (36.0-48.0); IMMATURE GRANULOCYTES 0.1 % (0-5); MCH 27.6 pg (26.0-34.0); MCHC 33.7 g/dL (31.0-37.0); MCV 81.8 fL (80.0-100.0); MEAN PLATELET VOLUME 9.4 fL (7.4-10.4); MONOCYTES 5.6 % (2-11); NEUTROPHILS 61.8 % (40-80); PLATELET COUNT 282 10x3/uL (130-400); RBC 4.35 10x6/uL (4.00-5.40); RDW 13.2 % (11.5-14.5); WBC 7.2 10x3/uL (4.8-10.8)
[2019-01-20 09:04] LABS: CALC OSMOLALITY 288 mosm/kg (275-300); CALCIUM 9.6 mg/dL (8.5-10.1); CARBON DIOXIDE 24.5 mmol/L (21.0-32.0); CHLORIDE - SERUM 104 mmol/L (98-107); CREATININE - SERUM 0.6 mg/dL (0.6-1.3); GLUCOSE 237 mg/dL (74-106); POTASSIUM - SERUM 4.3 mmol/L (3.5-5.1); SODIUM 139 mmol/L (136-145); UREA NITROGEN 20 mg/dL (7-18); eGFR NON AFRICAN AMERICAN > 90 mL/min (90-120)
[2019-01-20 09:14] LABS: APTT 27.8 SECONDS (22.8-39.4); PROTIME 12.7 SECONDS (11.6-15.0)
[2019-01-20 10:04] VITALS: BP 124/77; Ht 160 cm; Wt 104.1 kg
[2019-01-20 10:08] LABS: HCG SERUM NEGATIVE (NEGATIVE)
--- NOTE | 2019-01-20 12:50 | NUR ---
PT WAS INSTRUCTED TO KEEP L LEG STRAIGHT AND BACK FLAT UNTIL 1600. PT/FAMILY STATE UNDERSTANDING.
--- NOTE | 2019-01-20 14:28 | NUR ---
PT IS RESTING QUIETLY IN BED. 2 SIDE RAILS UP. NO COMPLAINTS AT THIS TIME. WILL CONTINUE TO MONITOR.
--- NOTE | 2019-01-20 15:45 | NUR ---
1540 REPORT FROM José ALVAREZ RN.
--- NOTE | 2019-01-20 16:05 | NUR ---
PT LEFT UNIT VIA WC AT 1603
== END 2019-01-20 16:03 | disposition home or self-care (01) ==
LOC: D.SP 08:15 → D.RAD 10:30 → D.SP 10:30
PROVIDERS: Anesthesiology; General Practice; ATTEND Internal Medicine Cardiovascular Disease
DX: I70.201 Unspecified atherosclerosis of native arteries of extremities, right leg (principal); Z01.812 Encounter for preprocedural laboratory examination

== ENCOUNTER → 2019-01-23 12:54 | Outpatient (CLI) | payer MEDICARE ==
[2019-01-20 10:04] VITALS: BMI 40.6
[~2019-01-23 12:54] MED LIST changes: +BUSPAR 15 MG TA15 MG PO; +CLEOCIN HCL300 MG PO; +ULTRAM50 MG PO
== END | disposition home or self-care (01) ==
LOC: D.LABREF 12:54
PROVIDERS: ATTEND Internal Medicine Cardiovascular Disease
DX: T81.89XA Other complications of procedures, not elsewhere classified, initial encounter (principal)

== ENCOUNTER 2019-01-26 08:47 | Day surgery (SDC) | payer MEDICARE ==
[~2019-01-26] VITALS: Ht 160 cm; Wt 112.7 kg
[~2019-01-26 08:47] MED LIST changes: -BUSPAR 15 MG TA15 MG PO; -CLEOCIN HCL300 MG PO; -ULTRAM50 MG PO
[2019-01-26 09:29] LABS: HEMATOCRIT 36.4 % (36.0-48.0); HEMOGLOBIN 12.1 g/dL (12-16); MCH 27.6 pg (26.0-34.0); MCHC 33.2 g/dL (31.0-37.0); MCV 82.9 fL (80.0-100.0); MEAN PLATELET VOLUME 9.7 fL (7.4-10.4); RBC 4.39 10x6/uL (4.00-5.40); RDW 13.3 % (11.5-14.5); WBC 7.2 10x3/uL (4.8-10.8)
[2019-01-26 09:41] LABS: CALC OSMOLALITY 281 mosm/kg (275-300); CALCIUM 9.2 mg/dL (8.5-10.1); CARBON DIOXIDE 27.2 mmol/L (21.0-32.0); CHLORIDE - SERUM 103 mmol/L (98-107); CREATININE - SERUM 0.6 mg/dL (0.6-1.3); POTASSIUM - SERUM 4.3 mmol/L (3.5-5.1); SODIUM 138 mmol/L (136-145); UREA NITROGEN 15 mg/dL (7-18); eGFR NON AFRICAN AMERICAN > 90 mL/min (90-120)
[2019-01-26 09:44] LABS: APTT 29.7 SECONDS (22.8-39.4); GLUCOSE 187 mg/dL (74-106); INR 1.02 (0.85-1.17); PROTIME 12.9 SECONDS (11.6-15.0)
[2019-01-26 10:48] LABS: HCG SERUM NEGATIVE (NEGATIVE)
[2019-01-26 11:03] VITALS: BP 140/69; BMI 40.6
[2019-01-26] MEDS ORDERED: ULTRAM50 MG PO (11:18)
--- NOTE | 2019-01-26 16:26 | NUR ---
PATIENT ARRIVED HERE FROM SURGERY. SHE HAS A WOUND VAC ON HER RIGHT LEG. NORMAL SALINE IS INFUSING THROUGHT IV IN HER LEFT FOREARM. PATIENT REPORTS THAT SHE IS UNHAPPY BECAUSE SHE STATES THAT SHE DID NOT HAVE A GOOD EXPERIENCE HERE LAST TIME SHE WAS HERE.
[2019-01-26 16:39] VITALS: BP 149/70
[2019-01-26 17:54] VITALS: BP 149/70
[2019-01-26 17:55] VITALS: BP 149/70; Ht 160 cm; Wt 112.7 kg
--- NOTE | 2019-01-26 19:00 | NUR ---
PATIENT LAYING IN BED. PATIENT COMPLAINS OF PAIN. PATIENT IS AWARE THAT PAIN MEDICATIONS ARE NOT DUE YET. PATIENT HAS NO OTHER COMPLAINTS AT THIS TIME. NO DISTRESS NOTED. WOUND VAC IN PLACE.
[2019-01-26 20:00] VITALS: BP 140/76
[2019-01-26 22:14] LABS: APPEARANCE HAZY (CLEAR); BILIRUBIN NEGATIVE (NEGATIVE); COLOR YELLOW (YELLOW); GLUCOSE 1000 mg/dL (NEGATIVE); KETONE NEGATIVE (NEGATIVE); NITRITE NEGATIVE (NEGATIVE); PROTEIN 1+ mg/dL (NEGATIVE); UROBILINOGEN NORMAL (NORMAL)
[2019-01-26 22:16] LABS: EPITHELIAL CELLS 0-5 /hpf (0-5); RED CELLS - URINE OCC /hpf (0-5)
[2019-01-26 22:17] LABS: BACTERIA MANY /hpf (NONE SEEN)
[2019-01-27 00:10] VITALS: BP 139/75
[2019-01-27 04:00] VITALS: BP 131/69
--- NOTE | 2019-01-27 09:12 | NUR ---
ALERT ADN ORIENTED. REFUSED TO TAKE ALL MEDS. WANTS TO GO HOME. WOUND VAC TO R LEG. CL IN REACH.
[2019-01-27 09:21] VITALS: BP 133/66
--- NOTE | 2019-01-27 10:13 | MORECARE ---
CASE MANAGEMENT DISCHARGE SUMMARY PATIENT: DEEPTHI HARDY UNIT: [id number] ADM DATE: 01/26/19 AGE: 43 : [birth year] SEX: F ROOM/BED: D.2101 AUTHOR: JENNIFER LARSEN PHYSICIAN: REFERRING PHYSICIAN: JOSE CHEN MD DATE OF SERVICE: 01/27/19 Discharge Plan Patient Name: DEEPTHI HARDY [facility] [facility] 1975 Planned Disposition: Home with Home Health Anticipated Discharge Date: 01/27/19 Discharge Date: Expected LOS: 1 Initial Reviewer: [email or web address] Initial Review Date: 01/27/2019 Generated: 01/27/19 11:12 am External Providers External Provider: [facility] Next Contact Date: 01/27/2019 Service Request Date: Service Type: Resolution: Reviewer: Comments: External Provider: [facility] Next Contact Date: 01/27/2019 Service Request Date: Service Type: Resolution: Reviewer: Comments: Patient Name: DEEPTHI HARDY Page [phone] at 1013 All edits/amendments must be made on the electronic document DICTATION DATE: 01/27/19 1012 MAIL CLERK BILLS: ANTHONY 01/27/19 1012 RPT#: [id number] DC DATE: STATUS: [facility] [address] [place] [address] END OF REPORT
[2019-01-27 13:54] VITALS: BP 135/70
--- NOTE | 2019-01-27 13:54 | NUR ---
NO CHANGE IN ASSESSMENT. REFUSED MEDS. WANTS TO GO HOME. CM TRYING TO GET A WOUND VAC FOR HOME THEN MAY BE ABLE TO DC HER TODAY.
--- NOTE | 2019-01-27 14:17 | MORECARE ---
CASE MANAGEMENT DISCHARGE SUMMARY PATIENT: DEEPTHI HARDY UNIT: [id number] ADM DATE: 01/26/19 AGE: 43 : [birth year] SEX: F ROOM/BED: D.2101 AUTHOR: JENNIFER LARSEN PHYSICIAN: REFERRING PHYSICIAN: JOSE CHEN MD DATE OF SERVICE: 01/27/19 Discharge Plan Patient Name: DEEPTHI HARDY [facility] [facility] 1975 Planned Disposition: Home with Home Health Anticipated Discharge Date: 01/27/19 Discharge Date: Expected LOS: 1 Initial Reviewer: [email or web address] Initial Review Date: 01/27/2019 Generated: 01/27/19 3:16 pm DCPIA - Discharge Planning Initial Assessment Updated by [email or web address]: Mike James on 01/27/19 2:09 pm * Is the patient Alert and Oriented? Yes * How many steps to enter\exit or inside your home? NONE * PCP DR. MONGE, [facility] * Pharmacy [facility] * Preadmission Environment Home with Family * ADLs Independent * Equipment None * Other Equipment NO MEDICAL EQUIPMENT PROVIDER PREFERENCE * List name and contact numbers for known caregivers / representatives who currently or will assist patient after discharge: MILAGRO HARDY, MOTHER, * Verbal permission to speak to the caregivers and representatives has been obtained from the patient. N/A * Community resources currently utilized Home Health * Please name any agencies selected above. [facility] * Additional services required to return to the preadmission environment? Yes * Can the patient safely return to the preadmission environment? Yes * Has this patient been hospitalized within the prior 30 days at any hospital? Yes Last DP export: 01/27/19 9:13 a Patient Name: DEEPTHI HARDY Page [phone] at 1417 All edits/amendments must be made on the electronic document DICTATION DATE: 01/27/191415 GUEST SERVICES MANAGER: ANTHONY 01/27/191415 RPT#: [id number] DC DATE: STATUS: REG [facility] [address] [place] [address] END OF REPORT
--- NOTE | 2019-01-27 14:24 | MORECARE ---
CASE MANAGEMENT DISCHARGE SUMMARY PATIENT: DEEPTHI HARDY UNIT: [id number] ADM DATE: 01/26/19 AGE: 43 : [birth year] SEX: F ROOM/BED: D.2103 AUTHOR: SUZIE,DOC PHYSICIAN: REFERRING PHYSICIAN: JOSE CHEN MD DATE OF SERVICE: 01/27/19 Discharge Plan Patient Name: DEEPTHI HARDY Facility: [facility]:[place] : 1975 Planned Disposition: Home with Home Health Anticipated Discharge Date: 01/27/19 Discharge Date: Expected LOS: 1 Initial Reviewer: [email or web address] Initial Review Date: 01/27/2019 Generated: 01/27/19 3:24 pm Comments DCP- Discharge Planning Updated by [email or web address]: Mike James on 01/27/19 1:[address] Patient Name: DEEPTHI HARDY Admission Status: Elective Accout number: [id number] Admission Date: 01-26-2019 : 1975 Admission Diagnosis: Attending: JOSE CHEN Current LOS: 1 Anticipated DC Date: 01-27-2019 Planned Disposition: Home with Home Health Primary Insurance: MEDICARE A & B PLANNED EXTERNAL PROVIDER: [facility] Discharge Planning Comments: CM RECEIVED ORDER FOR HOME HEALTH TO CHANGE WOUND VAC DRESSINGS. CM PAGED AND SPOKE TO DR. CHEN'S NURSE NATALIA, INFORMED THAT WOUND VAC ORDER WILL BE NEEDED TO OBTAIN HOME VAC; NATALIA ADVISED TO CALL HER WHEN PRESCRIPTION READY FOR DOCTOR'S SIGNATURE. CM MET WITH PT IN ROOM TO DISCUSS DISCHARGE PLANNING AND NEEDS. PT UPSET AND REPORTS THE DOCTOR SHOULD HAVE ALREADY TAKEN CARE OF ALL OF THIS. CM EXPLAINED PROCESS AND INFORMED PT THAT CM WILL BE TAKING CARE OF ARRANGING THE WOUND VAC FOR HOME AND HOME HEALTH. PT REPORTS ALREADY HAVING [facility]. PT WILL USE [facility] FOR WOUND VAC. CHOICE SIGNED. PT REPORTS LIVING AT HOME INDEPENDENTLY WITH HER MOTHER. PT HAS NO MEDICAL EQUIPMENT. CM DISCUSSED AVAILABILITY OF HOME HEALTH, REHAB SERVICES AND MEDICAL EQUIPMENT. PT DENIES OTHER DISCHARGE NEEDS, REPORTS HER MOTHER WILL PICK HER UP FOR DISCHARGE HOME. CM CALLED KIT OF [facility], , WHO WILL PROCESS ORDER FOR WOUND VAC APPROVAL. CM CALLED AND SPOKE TO SHARON JOSUE [employer] AT [place] WHO REPORTS HAVING NO HOME VACS IN INVENTORY AND MARIO OF [facility] IS ON THE WAY FROM [employer] [place] TO WORK ON THIS. CM FAXED CHART INFORMATION TO [facility] AT [phone]. CM CALLED [facility], , SPOKE TO CATRACHITO WHO TOOK REFERRAL INFORMATION AND WILL PLACE PT BACK ON SCHEDULE FOR RESUMPTION OF HOME HEALTH CARE. CM FAXED CHART INFORMATION TO [facility] AT [phone]. CM WAITING ON APPROVAL OF WOUND VAC FOR PRESCRIPTION TO BE GENERATED FOR DOCTOR SIGNATURE. CM [facility]IT[facility] FOR DISCHARGE, FAX DISCHARGE INFORMATION TO [facility] AT [phone]. Associate Professor Of Art History: Mike James DCPIA - Discharge Planning Initial Assessment Updated by SOMMER: Mike James on 01/27/19 2:09 pm * Is the patient Alert and Oriented? Yes * How many steps to enter\exit or inside your home? NONE * PCP DR. MONGE, [facility] * [facility] * Preadmission Environment Home with Family * ADLs Independent * Equipment None * Other Equipment NO MEDICAL EQUIPMENT PROVIDER PREFERENCE * List name and contact numbers for known caregivers / representatives who currently or will assist patient after discharge: MILAGRO HARDY, MOTHER, * Verbal permission to speak to the caregivers and representatives has been obtained from the patient. N/A * Community resources currently utilized Home Health * Please name any agencies selected above. [facility] * Additional services required to return to the preadmission environment? Yes * Can the patient safely return to the preadmission environment? Yes * Has this patient been hospitalized within the prior 30 days at any hospital? Yes Coverage Notice Reviewer: [email or web address] - Mike James Notice Issued Date-Time: 01/27/2019 9:55 Notice Type: Patient Choice Letter Notice Delivered To: Patient Relationship to Patient: [employer] Solution Architect Name: Delivery Method: HAND - Hand Delivered Aida Days: Prior Verbal Notification: Recipient Understood Notice: Yes Recipient Signature: Yes Med Rec Note Co-signed by Attending: Coverage Notice Comment: [facility] Last DP export: 01/27/19 1:17 p Patient Name: DEEPTHI HARDY Page 78170 at 1424 All edits/amendments must be made on the electronic document DICTATION DATE: 01/27/191423 JEWEL CUPPING MACHINE OPERATOR: ANTHONY 01/27/191423 RPT#: [id number] DC DATE: STATUS: REG [facility] [address] [place] [address] END OF REPORT
--- NOTE | 2019-01-27 15:54 | NUR ---
DURING THE LAST HOUR, PT HAS BEEN YELLING AND SAY ING SHE IS LEAVING AMA. SHE HAS DISCONNECTED HERSELF FROM THE WOUND VAC AND WILL NOT LET THIS NURS NOR [facility] RESPRESENTATIVE CONNECT IT BACK. Nae RESENDEZ WITH DR. CHEN CALLED. PER NATALIA, THIS NURSE TOLD PT THAT IF SHE LEAVES AMA SHE WOULD LOOSE HER LEG. PT REPLIES SHE DOES NOT CARE. PTS MOTHER CALLED AND INFORMED. ONLY WOUND VAC AVAILABLE IS VIA. NATALIA RESENDEZ CALLED AND GAVE ORDER TO USE THIS VAC. CASE MANAGEMENT INFORMED.
--- NOTE | 2019-01-27 16:19 | NUR ---
VIA WOUND VAC APPLIED. NATALIA RESENDEZ AND INSTRUCTED PT AND MOTHER.
--- NOTE | 2019-01-27 16:56 | MORECARE ---
CASE MANAGEMENT DISCHARGE SUMMARY PATIENT: DEEPTHI HARDY UNIT: [id number] ADM DATE: 01/26/19 AGE: 43 : 77 SEX: F ROOM/BED: D.210 AUTHOR: SUZIE,DOC PHYSICIAN: REFERRING PHYSICIAN: JOSE CHEN MD DATE OF SERVICE: 01/27/19 Discharge Plan Patient Name: DEEPTHI HARDY Facility: [facility]:[place] : 1975 Planned Disposition: Home with Home Health Anticipated Discharge Date: 01/27/19 Discharge Date: Expected LOS: 1 Initial Reviewer: [email or web address] Initial Review Date: 01/27/2019 Generated: 01/27/19 5:56 pm Comments DCP- Discharge Planning Updated by [email or web address]: Mike James on 01/27/19 1:[address] Patient Name: DEEPTHI HARDY Admission Status: Elective Accout number: [id number] Admission Date: 01-26-2019 : 1975 Admission Diagnosis: Attending: JOSE CHEN Current LOS: 1 Anticipated DC Date: 01-27-2019 Planned Disposition: Home with Home Health Primary Insurance: MEDICARE A & B PLANNED EXTERNAL PROVIDER: [facility] Discharge Planning Comments: CM RECEIVED ORDER FOR HOME HEALTH TO CHANGE WOUND VAC DRESSINGS. CM PAGED AND SPOKE TO DR. CHEN'S NURSE NATALIA, INFORMED THAT WOUND VAC ORDER WILL BE NEEDED TO OBTAIN HOME VAC; NATALIA ADVISED TO CALL HER WHEN PRESCRIPTION READY FOR DOCTOR'S SIGNATURE. CM MET WITH PT IN ROOM TO DISCUSS DISCHARGE PLANNING AND NEEDS. PT UPSET AND REPORTS THE DOCTOR SHOULD HAVE ALREADY TAKEN CARE OF ALL OF THIS. CM EXPLAINED PROCESS AND INFORMED PT THAT CM WILL BE TAKING CARE OF ARRANGING THE WOUND VAC FOR HOME AND HOME HEALTH. PT REPORTS ALREADY HAVING [facility]. PT WILL USE [facility] FOR WOUND VAC. CHOICE SIGNED. PT REPORTS LIVING AT HOME INDEPENDENTLY WITH HER MOTHER. PT HAS NO MEDICAL EQUIPMENT. CM DISCUSSED AVAILABILITY OF HOME HEALTH, REHAB SERVICES AND MEDICAL EQUIPMENT. PT DENIES OTHER DISCHARGE NEEDS, REPORTS HER MOTHER WILL PICK HER UP FOR DISCHARGE HOME. CM CALLED KIT OF [facility], , WHO WILL PROCESS ORDER FOR WOUND VAC APPROVAL. CM CALLED AND SPOKE TO SHARON JOSUE [employer] AT [place] WHO REPORTS HAVING NO HOME VACS IN INVENTORY AND MARIO OF [facility] IS ON THE WAY FROM [place] TO WORK ON THIS. CM FAXED CHART INFORMATION TO [facility] AT [phone]. CM CALLED [facility], , SPOKE TO CATRACHITO WHO TOOK REFERRAL INFORMATION AND WILL PLACE PT BACK ON SCHEDULE FOR RESUMPTION OF HOME HEALTH CARE. CM FAXED CHART INFORMATION TO [facility] AT [phone]. CM WAITING ON APPROVAL OF WOUND VAC FOR PRESCRIPTION TO BE GENERATED FOR DOCTOR SIGNATURE. CM WAITING ON [facility]OUND [facility] FOR DISCHARGE, FAX DISCHARGE INFORMATION TO [facility] AT [phone]. Nutrition Partner: Mike James DCPIA - Discharge Planning Initial Assessment Updated by SOMMER: Mike James on 01/27/19 2:09 pm * Is the patient Alert and Oriented? Yes * How many steps to enter\exit or inside your home? NONE * PCP DR. MONGE, [facility] * [facility]acy [facility] * Preadmission Environment Home with Family * ADLs Independent * Equipment None * Other Equipment NO MEDICAL EQUIPMENT PROVIDER PREFERENCE * List name and contact numbers for known caregivers / representatives who currently or will assist patient after discharge: MILAGRO HARDY, MOTHER, * Verbal permission to speak to the caregivers and representatives has been obtained from the patient. N/A * Community resources currently utilized Home Health * Please name any agencies selected above. [facility] * Additional services required to return to the preadmission environment? Yes * Can the patient safely return to the preadmission environment? Yes * Has this patient been hospitalized within the prior 30 days at any hospital? Yes Coverage Notice Reviewer: [id number] - Mike James Notice Issued Date-Time: 01/27/2019 9:55 Notice Type: Patient Choice Letter Notice Delivered To: Patient Relationship to Patient: Archeology Faculty Member Name: Delivery Method: HAND - Hand Delivered Aida Days: Prior Verbal Notification: Recipient Understood Notice: Yes Recipient Signature: Yes Med Rec Note Co-signed by Attending: Coverage Notice Comment: [facility] Last DP export: 01/27/19 1:24 p Patient Name: DEEPTHI HARDY Page [id number] at 9471 All edits/amendments must be made on the electronic document DICTATION DATE: 01/27/191655 FERRYBOAT HELPER: ANTHONY 01/27/191655 RPT#: [id number] DC DATE: STATUS: REG [facility] [address] [place] [address] END OF REPORT
--- NOTE | 2019-01-27 17:00 | NUR ---
DC INFORMATION GIVEN PER RISHI COFFEE MACHINE TECHNICIAN. HOME WITH WOUND VAC TO [facility]. DANIE'D L ARM SL WITH CATH INTACT. HER MOM IS PICKING HER UP AT THIS TIME FOR DC HOME. ASSISTED TO CAR IN WC PER STAFF.
--- NOTE | 2019-01-27 17:05 | MORECARE ---
CASE MANAGEMENT DISCHARGE SUMMARY PATIENT: DEEPTHI HARDY UNIT: [id number] ADM DATE: 01/26/19 AGE: 43 : 77 SEX: F ROOM/BED: D.2104 AUTHOR: SUZIE,DOC PHYSICIAN: REFERRING PHYSICIAN: JOSE CHEN MD DATE OF SERVICE: 01/27/19 Discharge Plan Patient Name: DEEPTHI HARDY Facility: [facility]:[place] : 1975 Planned Disposition: Home with Home Health Anticipated Discharge Date: 01/27/19 Discharge Date: Expected LOS: 1 Initial Reviewer: [email or web address] Initial Review Date: 01/27/2019 Generated: 01/27/19 6:04 pm Comments DCP- Discharge Planning Updated by [id number]: Mike James on 01/27/19 3:[address] Patient Name: DEEPTHI HARDY Admission Status: Elective Accout number: [id number] Admission Date: 01-26-2019 : 1975 Admission Diagnosis: Attending: JOSE CHEN Current LOS: 1 Anticipated DC Date: 01-27-2019 Planned Disposition: Home with Home Health Primary Insurance: MEDICARE A & B PLANNED EXTERNAL PROVIDER: [facility] Discharge Planning Comments: CM RECEIVED ORDER FOR HOME HEALTH TO CHANGE WOUND VAC DRESSINGS. CM PAGED AND SPOKE TO DR. CHEN'S NURSE NATALIA, INFORMED THAT WOUND VAC ORDER WILL BE NEEDED TO OBTAIN HOME VAC; NATALIA ADVISED TO CALL HER WHEN PRESCRIPTION READY FOR DOCTOR'S SIGNATURE. CM MET WITH PT IN ROOM TO DISCUSS DISCHARGE PLANNING AND NEEDS. PT UPSET AND REPORTS THE DOCTOR SHOULD HAVE ALREADY TAKEN CARE OF ALL OF THIS. CM EXPLAINED PROCESS AND INFORMED PT THAT CM WILL BE TAKING CARE OF ARRANGING THE WOUND VAC FOR HOME AND HOME HEALTH. PT REPORTS ALREADY HAVING [facility]. PT WILL USE [facility] FOR WOUND VAC. CHOICE SIGNED. PT REPORTS LIVING AT HOME INDEPENDENTLY WITH HER MOTHER. PT HAS NO MEDICAL EQUIPMENT. CM DISCUSSED AVAILABILITY OF HOME HEALTH, REHAB SERVICES AND MEDICAL EQUIPMENT. PT DENIES OTHER DISCHARGE NEEDS, REPORTS HER MOTHER WILL PICK HER UP FOR DISCHARGE HOME. CM CALLED KIT OF [facility], , WHO WILL PROCESS ORDER FOR WOUND VAC APPROVAL. CM CALLED AND SPOKE TO [facility] [employer] AT [place] WHO REPORTS HAVING NO HOME VACS IN INVENTORY AND MARIO JOSUE [facility] IS ON THE WAY FROM [place] TO WORK ON THIS. CM FAXED CHART INFORMATION TO [facility] AT [phone]. CM CALLED [facility], , SPOKE TO CATRACHITO WHO TOOK REFERRAL INFORMATION AND WILL PLACE PT BACK ON SCHEDULE FOR RESUMPTION OF HOME HEALTH CARE. CM FAXED CHART INFORMATION TO [facility] AT [phone]. CM WAITING ON APPROVAL OF WOUND VAC FOR PRESCRIPTION TO BE GENERATED FOR DOCTOR SIGNATURE. CM WAITING ON WOUND VAC [facility] FOR DISCHARGE, FAX DISCHARGE INFORMATION TO [facility] AT [phone]. Laminating Machine Tender: Mike James Appended by Mike James on 01/27/2019 16:58 CDT: CM RECEIVED APPROVAL OF WOUND VAC FOR PRESCRIPTION TO BE GENERATED FOR DOCTOR SIGNATURE, OBTAINED DR'S SIGNATURE. NO HOME WOUND VAC IN INVENTORY [facility]. CM NOTIFIED BY ASSISTANT COUNSEL NURSE THAT PT WILL NOT STAY AND IS LEAVING AMA IF NOT DISCHARGED. CM SPOKE TO [facility], INFORMED THAT VAC VIA MAY BE OPTION. CM DISCUSSED WITH NURSE NATALIA, OBTAINED ORDER FOR VAC VIA. NOTIFIED [facility] [employer]. NATALIA ASKED THAT HOME VAC BE DELIVERED TO PT'S HOME. CM FAXED SIGNED PRESCRIPTION TO [facility], SPOKE TO MARIO OF [facility] WHO WILL ARRANGE FOR HOME DELIVERY OF VAC FOR HOME HEALTH TO SWITCH OUT THE VAC VIA. CM FAXED DISCHARGE INFORMATION TO [facility] AT [phone]. Laminating Machine Tender: Mike James DCPIA - Discharge Planning Initial Assessment Updated by [email or web address]: Mike James on 01/27/19 2:09 pm * Is the patient Alert and Oriented? Yes * How many steps to enter\exit or inside your home? NONE * PCP DR. MONGE, [facility] [place] * [facility]acy [facility] * Preadmission Environment Home with Family * ADLs Independent * Equipment None * Other Equipment NO MEDICAL EQUIPMENT PROVIDER PREFERENCE * List name and contact numbers for known caregivers / representatives who currently or will assist patient after discharge: MILAGRO HARDY, MOTHER, * Verbal permission to speak to the caregivers and representatives has been obtained from the patient. N/A * Community resources currently utilized Home Health * Please name any agencies selected above. [facility] * Additional services required to return to the preadmission environment? Yes * Can the patient safely return to the preadmission environment? Yes * Has this patient been hospitalized within the prior 30 days at any hospital? Yes Coverage Notice Reviewer: [id number] Olayinka James Notice Issued Date-Time: 01/27/2019 9:55 Notice Type: Patient Choice Letter Notice Delivered To: Patient Relationship to Patient: Real Estate Assistant Name: Delivery Method: HAND - Hand Delivered Aida Days: Prior Verbal Notification: Recipient Understood Notice: Yes Recipient Signature: Yes Med Rec Note Co-signed by Attending: Coverage Notice Comment: PAMELA Last DP export: 01/27/19 3:56 p Patient Name: DEEPTHI HARDY Page [id number] at 1705 All edits/amendments must be made on the electronic document DICTATION DATE: 01/27/191703 PRACTICE ADMINISTRATOR: ANTHONY 01/27/191703 RPT#: [id number] DC DATE: STATUS: REG [facility] [address] [place] [address] END OF REPORT
--- NOTE | 2019-01-29 13:58 | OP ---
PATIENT NAME: DEEPTHI HARDY MEDICAL RECORD: [id number] :[birth year] LOCATION:D[facility] ADMISSION DATE: SURGEON: JOSE TUCKER MD DATE OF OPERATION: 01/26/2019 SURGEON: Jose Tucker MD ANESTHESIA: General. ANESTHESIOLOGIST: Dr. Raya. OPERATION PERFORMED: 1. Wound excision and debridement. 2. Displacement of wound VAC. PREOPERATIVE DIAGNOSIS: Superficial wound, right lower extremity. POSTOPERATIVE DIAGNOSIS: Superficial wound, Right lower extremity INDICATION FOR DIAGNOSIS: Nonhealing ulcer with eschar right leg. FINDINGS AT OPERATION: After debridement, the wound was 5 cm in length, 2 cm wide, and 1 cm in depth. ESTIMATED BLOOD LOSS: Less than 10 cc. DESCRIPTION OF PROCEDURE: After informed consent, adequate preoperative medication evaluation, the patient was brought to the operating room, placed on the table in the supine position. After induction of general anesthesia and application of appropriate monitoring devices, the right leg were prepped and draped in sterile field, utilizing Betadine scrub, alcohol, and Betadine solution. Betadine-impregnated drape was also used. The wound was incised around the edges by a mm to good bleeding tissue. The eschar in the middle of the wound was removed and the necrotic fat removed. The wound was irrigated and hemostasis achieved. A wound VAC was then placed without difficulty. The patient tolerated the procedure well and was transferred to postanesthesia recovery in satisfactory condition. TRANSINT:[id number] Voice Confirmation ID: [id number] DOCUMENT ID: [id number] JOSE TUCKER MD at 1358 CC: [id number] DICTATION DATE: 01/26/19 1530 EMERGENCY DEPARTMENT MANAGER: 01/26/19 1609 [facility] 01/27/19 [address] [place] [address]
== END 2019-01-27 18:27 | disposition home or self-care (01) ==
LOC: D.OPS 08:47 → D.M2 15:28 → D.OPS 01-27 18:27
PROVIDERS: Anesthesiology; ATTEND Internal Medicine Cardiovascular Disease
DX: T81.89XA Other complications of procedures, not elsewhere classified, initial encounter (principal); Y84.9 Medical procedure, unspecified as the cause of abnormal reaction of the patient, or of later complication, without mention of misadventure at the time of the procedure; E11.9 Type 2 diabetes mellitus without complications; E87.1 Hypo-osmolality and hyponatremia; E66.01 Morbid (severe) obesity due to excess calories; Z68.41 Body mass index [BMI] 40.0-44.9, adult

== ENCOUNTER 2019-03-06 22:12 | Emergency (ER) | payer MEDICARE ==
[2019-01-26 17:55] VITALS: Ht 160 cm; Wt 103.6 kg
[~2019-03-06] VITALS: Ht 160 cm; Wt 103.6 kg
[~2019-03-06 22:12] MED LIST changes: +ULTRAM50 MG PO
[2019-03-06] MEDS ORDERED: BUSPAR 15 MG TA15 MG PO (22:18)
[2019-03-06] MEDS ORDERED: TRAZODONE HCL150 MG PO (22:19)
[2019-03-06 22:30] LABS: BASOPHILS 0.2 % (0-2); EOSINOPHILS 1.5 % (0-7); HEMATOCRIT 38.8 % (36.0-48.0); HEMOGLOBIN 12.8 g/dL (12-16); IMMATURE GRANULOCYTES 0.4 % (0-5); LYMPHOCYTES 24.3 % (15-50); MCV 81.9 fL (80.0-100.0); MEAN PLATELET VOLUME 9.7 fL (7.4-10.4); MONOCYTES 7.7 % (2-11); NEUTROPHILS 65.9 % (40-80); RBC 4.74 10x6/uL (4.00-5.40); RDW 13.3 % (11.5-14.5); WBC 9.5 10x3/uL (4.8-10.8)
[2019-03-06 22:31] LABS: PLATELET COUNT 416 10x3/uL (130-400)
[2019-03-06 22:52] LABS: ALBUMIN 2.8 g/dL (3.4-5.0); ALKALINE PHOSPHATASE 107 U/L (46-116); ALT (SGPT) 12 U/L (10-68); BILIRUBIN - TOTAL 0.19 mg/dL (0.2-1.3); CALC OSMOLALITY 296 mosm/kg (275-300); CALCIUM 9.1 mg/dL (8.5-10.1); CARBON DIOXIDE 27.9 mmol/L (21.0-32.0); CHLORIDE - SERUM 100 mmol/L (98-107); CREATININE - SERUM 0.8 mg/dL (0.6-1.3); POTASSIUM - SERUM 4.6 mmol/L (3.5-5.1); SODIUM 137 mmol/L (136-145); UREA NITROGEN 17 mg/dL (7-18); eGFR NON AFRICAN AMERICAN 83 mL/min (90-120)
[2019-03-06 22:58] LABS: GLUCOSE 470 mg/dL (74-106)
[2019-03-06] MEDS ORDERED: CLEOCIN HCL300 MG PO (23:47)
[2019-03-06 23:55] VITALS: BP 137/68
== END 2019-03-06 23:56 | disposition left against medical advice (07) ==
LOC: D.ER 22:12
PROVIDERS: Family Medicine
DX: T81.89XA Other complications of procedures, not elsewhere classified, initial encounter (principal)

== ENCOUNTER → 2019-04-07 14:04 | Outpatient (CLI) | payer MEDICARE ==
[2019-03-06 22:15] VITALS: BMI 40.4
[~2019-04-07 14:04] MED LIST changes: +BUSPAR 15 MG TA15 MG PO; +CLEOCIN HCL300 MG PO
== END | disposition home or self-care (01) ==
LOC: D.LABREF 14:04
PROVIDERS: ATTEND Internal Medicine Cardiovascular Disease
DX: S81.801A Unspecified open wound, right lower leg, initial encounter (principal); X58.XXXA Exposure to other specified factors, initial encounter